=== PATIENT | female | born 1950 | race Two or more races ===

== ENCOUNTER 2021-08-29 09:13 | Outpatient (REF) | payer MEDICARE, SELFPAY ==
--- NOTE | 2021-08-29 09:15 | EMG_ITS ---
This is a 71-year-old woman with bilateral lower extremity numbness in her feet. PHYSICAL EXAMINATION: On examination, she is alert and oriented with normal intellectual functions. Cranial nerves 2 through 12 are normal. Muscle tone and strength are normal in all 4 extremities. Deep tendon reflexes symmetrical. IMPRESSION: Rule out peripheral neuropathy, rule out lumbar radiculopathy. Nerve conduction EMG study: Mild axonal loss in the sensory nerves and the right peroneal motor nerve. It may be indicated as early axonal neuropathy. Normal EMG of the right L4-S1 innervated muscles. MD DEBBI Boyd/ANGELICA / [id number]
== END 2021-08-29 09:14 | disposition home or self-care (01) ==
LOC: HO.NEURO 09:13
PROVIDERS: PCP Emergency Medicine; Visit Provider Emergency Medicine
DX: R20.2 Paresthesia of skin (principal); M79.605 Pain in left leg; M79.604 Pain in right leg
CPT/HCPCS: 95885; 95912

== ENCOUNTER 2021-11-02 10:39 | Outpatient (REF) | payer MEDICARE, SELFPAY ==
--- NOTE | ~2021-11-02 | MM_ITS ---
EXAMINATION: MM SCREENING DIGITAL BREAST TOMOSYNTHESIS, BILATERAL CLINICAL INFORMATION: Screening. Asymptomatic. The lifetime risk of breast cancer based on the Tyrer-Cuzick Model is 3%. COMPARISON: Mammography: 04/25/2020, 02/13/2019, 02/02/2018 TECHNIQUE: Digital breast tomosynthesis is performed in both the craniocaudal and mediolateral oblique views along with computer-aided detection (CAD). Synthesized 2D images are generated from the tomosynthesis. FINDINGS: There are scattered areas of fibroglandular density (ACR BI-RADS breast composition Category b). There are no significant masses, abnormal calcifications, or other abnormalities. There is biopsy clip marker posterior central right breast. Background stromal and fibroglandular densities are stable. The axilla and skin contours are unremarkable. MM/MM tomosynthesis screening BI IMPRESSION: No mammographic evidence of malignancy. ASSESSMENT: BI-RADS 1: Negative RECOMMENDATION: Routine annual mammography screening. This patient's information was entered into a reminder system with a target due date for their next mammogram.
== END 2021-11-02 10:40 | disposition home or self-care (01) ==
LOC: HO.MAMMO 10:39
PROVIDERS: PCP Nurse Practitioner; Visit Provider Nurse Practitioner
DX: Z12.31 Encounter for screening mammogram for malignant neoplasm of breast (principal)
CPT/HCPCS: 77063; 77067

== ENCOUNTER 2022-04-11 10:09 | Outpatient (REF) | payer MEDICARE, SELFPAY ==
--- NOTE | ~2022-04-11 | MM_ITS ---
EXAMINATION: BONE DENSITOMETRY CLINICAL INDICATION: Osteopenia. COMPARISON: Previous BD dated 02/19/2019 and baseline BD dated 11/04/2005. TECHNIQUE: Using a [employer] DXA System (software version: 13.1) manufactured by [employer], dual-energy x-ray absorptiometry was performed of the lumbar spine and left hip. The images are of good technical quality. Summary results are attached. FINDINGS: AP SPINE L1-L4: Current: BMD 1.052 g/cm2, Z-score 0.5, T-score -1.1, osteopenia, 2.7% decrease from previous, 0.4% decrease from baseline (<5% change is not significant). Prior: BMD 1.081 g/cm2. Baseline: BMD 1.056 g/cm2. LEFT FEMUR, NECK: Current: BMD 0.864 g/cm2, Z-score 0.5, T-score -1.2, osteopenia. Prior: BMD 0.875 g/cm2. Baseline: BMD 0.930 g/cm2. LEFT FEMUR, TOTAL: Current: BMD 0.908 g/cm2, Z-score 0.7, T-score -0.8, normal, 2.3% decrease from previous, 16.6% decrease from baseline (<5% change is not significant). Prior: BMD 0.929 g/cm2. Baseline: BMD 1.089 g/cm2. IDENTIFIED RISK FACTORS: Height loss, history of fracture (adult), family history (parental hip fracture), osteoporosis, menopause, hysterectomy. HISTORY OF FRACTURE: Humerus. MEDICATIONS: Calcium supplements or multivitamin, vitamin D. MM/XR DEXA axial skeleton IMPRESSION: 1. DIAGNOSIS: Osteopenia based on the lowest T-score value of -1.2 in the femoral neck applying World Health Organization criteria. 2. 10-YEAR FRACTURE RISK PREDICTION, FRAX: Major osteoporotic fracture (clinical spine, forearm, hip or shoulder) 12.7%. Hip fracture 3.7%. 3. Treatment Recommendations: NOF guidelines recommend consideration for treatment in postmenopausal women and men age 50 and older presenting with the following: -A hip or vertebral (clinical or morphometric) fracture. -T-score less than or equal to -2.5 at the femoral neck or spine after appropriate evaluation to exclude secondary causes. -Low bone mass at the hip or spine and a 10-year fracture probability by FRAX of greater than or equal to 3% for hip fracture or greater than or equal to 20% for major osteoporotic fracture based on the [place] adapted WHO algorithm. 4. Other Recommendations: All treatment decisions require clinical judgment and consideration of individual patient factors, including patient preferences, comorbidities, previous drug use, risk factors not captured in the FRAX model (e.g. frailty, falls, vitamin D deficiency, increased bone turnover, interval significant decline in bone density) and possible under or overestimation of fracture risk by FRAX. Additional medical evaluation for secondary cause of low bone mineral density may be appropriate. FUTURE SCAN RECOMMENDATION: People with diagnosed cases of osteoporosis or at high risk for fracture should have regular bone mineral density tests. For patients eligible for Medicare, routine testing is allowed once every 2 years. The testing frequency can be increased to one year for patients who have rapidly progressing disease, those who are receiving or discontinuing medical therapy to restore bone mass, or have additional risk factors.
== END 2022-04-11 10:10 | disposition home or self-care (01) ==
LOC: HO.MAMMO 10:09
PROVIDERS: Visit Provider Nurse Practitioner
DX: M85.80 Other specified disorders of bone density and structure, unspecified site (principal); Z78.0 Asymptomatic menopausal state; Z90.710 Acquired absence of both cervix and uterus
CPT/HCPCS: 77080

== ENCOUNTER 2022-11-06 09:53 | Outpatient (REF) | payer MEDICARE, SELFPAY ==
--- NOTE | ~2022-11-06 | MM_ITS ---
EXAMINATION: MM SCREENING DIGITAL BREAST TOMOSYNTHESIS, BILATERAL CLINICAL INFORMATION: Screening. Asymptomatic. Family history breast cancer, sister. COMPARISON: Mammography: 11/02/2021, 04/25/2020, 02/13/2019, 02/02/2018 TECHNIQUE: Digital breast tomosynthesis is performed in both the craniocaudal and mediolateral oblique views along with computer-aided detection (CAD). Synthesized 2D images are generated from the tomosynthesis. FINDINGS: There are scattered areas of fibroglandular density (ACR BI-RADS breast composition Category b). Breast tissue composition borders on predominantly fatty. No interval architectural abnormality or developing density or abnormal calcifications. Background stromal and fibroglandular densities are stable. There are incidental intramammary nodes again seen posterior upper outer bilateral breasts. Biopsy clip marker again noted posterior central right breast. The axilla and skin contours are unremarkable. MM/MM tomosynthesis screening BI IMPRESSION: No mammographic evidence of malignancy. ASSESSMENT: BI-RADS 2: Benign RECOMMENDATION: Routine annual mammography screening. This patient's information was entered into a reminder system with a target due date for their next mammogram.
== END 2022-11-06 09:54 | disposition home or self-care (01) ==
LOC: HO.MAMMO 09:53
PROVIDERS: Visit Provider Nurse Practitioner
DX: Z12.31 Encounter for screening mammogram for malignant neoplasm of breast (principal)
CPT/HCPCS: 77063; 77067

== ENCOUNTER 2023-09-10 08:52 | Outpatient (REF) | payer MEDICARE, SELFPAY ==
[2023-09-10 11:27] LABS: Appearance Urine Turbid; Color Urine Yellow; Glucose Urine UA Negative (Negative); Leukocyte Esterase Urine Large (3+) (Negative); Nitrite Urine Negative (Negative); PH 6.5 (5.0-9.0); Specific Gravity - Urine 1.015 (1.005-1.025); UMIC TRIGGER UACC YES; Urine Blood Small (1+) (Negative); Urine Ketones Negative (Negative); Urine Protein Trace mg/dL (Neg-Trace)
[2023-09-10 12:00] LABS: Alanine Aminotransferase 10 U/L (0-31); Albumin Level 3.8 g/dL (3.5-5.0); Alkaline Phosphatase 85 U/L (39-117); Anion Gap 11 (12-20); Aspartate Amino Transferase 19 U/L (5-31); Bilirubin Total 0.3 mg/dL (0.0-1.0); Blood Urea Nitrogen 29 mg/dL (9-16); Calcium 9.8 mg/dL (8.4-10.2); Carbon Dioxide 27 mmol/L (22-29); Chloride 108 mmol/L (96-108); Cholesterol 114 mg/dL (<200); Estimated Glomerular Filt Rate 54; Glucose Random 91 mg/dL (60-115); HDL Cholesterol 53 mg/dL (>40); LDL Cholesterol Calculated 48 mg/dL (<100); Potassium 4.1 mmol/L (3.3-5.1); Sodium 142 mmol/L (135-145); Total Protein 7.5 g/dL (6.5-8.0); Triglycerides 69 mg/dL (<150)
[2023-09-10 12:13] LABS: Estimated Average Glucose 103 mg/dL; Hemoglobin A1c % 5.2 % (<6.0)
[2023-09-10 12:16] LABS: Bacteria Urine 4+ (None Seen); RBC Urine 0-2 /HPF (0-2); Squamous Epithelial Cell Urine >20 /HPF (0-2); UACC Culture Trigger YES; WBC Urine >50 /HPF (0-5)
== END 2023-09-10 08:53 | disposition home or self-care (01) ==
LOC: HO.HHCL 08:52
PROVIDERS: Visit Provider Registered Nurse
DX: I10 Essential (primary) hypertension (principal); E66.09 Other obesity due to excess calories; Z68.34 Body mass index [BMI] 34.0-34.9, adult; R31.29 Other microscopic hematuria; E78.00 Pure hypercholesterolemia, unspecified; M48.10 Ankylosing hyperostosis [Forestier], site unspecified
CPT/HCPCS: 36415; 80053; 80061; 81001; 83036; 87086

== ENCOUNTER 2023-10-22 10:38 | Outpatient (AMB) | payer MEDICARE, SELFPAY ==
--- NOTE | 2023-10-22 10:48 | A.OFFVIS_ITS ---
Intake Intake Visit Reasons: microscopic hematuria Intake Note: New Patient presents for initial visit for microscopic hematuria Urology Medications: none Blood Thinner: none Tool Procurement Coordinator Required: Yes Tool Procurement Coordinator Name: [id number] Accompanied by: Self / Same As Patient Allergies BIPHOSPHONATES Allergy (Unknown, Uncoded 10/22/23 11:35) Unknown Medication List - Last Reconciled 10/22/23 by KOFFI Hinkle albuterol sulfate 90 mcg/actuation inhalation amlodipine 5 mg PO DAILY calcium carbonate-vitamin D3 600 mg-10 mcg (400 unit) 1 tab PO BID docusate sodium 100 mg PO QAM ergocalciferol (vitamin D2) PO ferrous sulfate (FeroSul) 325 mg PO DAILY fluticasone propion-salmeterol 250-50 mcg/dose 1 ea inhalation BID lisinopril-hydrochlorothiazide 20-25 mg 1 tab PO DAILY loratadine 10 mg PO DAILY rosuvastatin 20 mg PO BEDTIME HPI HPI Comments History of Present Illness Details Kalli is a very pleasant Estonian speaking patient of Dr. Sarkar. She has a PMH of obesity, allergic rhinitis, hypertension, hypercholesteremia, moderate persistent asthma, and osteopenia. She presents to the office today as a new patient for microscopic hematuria. In discussion with the patient today she reports having followed-up with her PCP at which time a urinalysis noted microscopic hematuria thus referral to Urology was made for further assessment evaluation. In discussion with the patient today she denies any previous known chemical exposure or smoking history. She does report longstanding history of nocturia however does not find this bothersome. In office urinalysis today with 3+ leukocytes and trace microscopic hematuria otherwise within normal limits. Discussed at length potential causes for microscopic hematuria as well as further microscopic hematuria workup with imaging, cytology, and in office cystoscopy. She otherwise denies any bothersome urinary issues or concerns. She does report urinary urgency and frequency however does not find this bothersome. She denies hematuria, dysuria, foul smelling urine, changes to urinary stream, flank pain, fever, and or chills. She is happy with her current voiding parameters. She otherwise offers no issues or concerns at this time. 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 Allergic rhinitis Diverticular disease of colon Essential hypertension Hypercholesteremia Moderate persistent asthma Osteopenia Surgical History (Updated 10/22/23 @ 11:37 by Kenneth Love) History of hysterectomy Review of Systems Eyes Reports no additional complaints ENT Reports no additional complaints Card Reports as per HPI Resp Reports as per HPI GI Reports no additional complaints Reports as per HPI Musc Reports as per HPI Neuro Reports no additional complaints Psych Reports no additional complaints Endo Reports no additional complaints Иван/Lymph Reports no additional complaints Aller/Immun Reports no additional complaints Physical Exam Const General: cooperative, comfortable, no acute distress, well developed, alert and awake Nutritional Appearance: overweight Orientation/consciousness: patient oriented x3 Limitations: no limitations HEENT Head: Yes normal to inspection, Yes normocephalic and Yes atraumatic Ears: hearing grossly normal bilaterally Eyes General: appearance normal, both eyes and all related structures Neck Neck: Yes normal visual inspection and Yes trachea midline Chest Chest palpation & inspection: normal inspection of the chest Resp Effort & Inspection: normal respiratory effort and able to speak in complete sentences Cardio Rate: regular rate GI Inspection: Yes normal to inspection General: Yes no CVA tenderness Back/Spine/Pelvis Back: no CVA tenderness Skin General skin exam: no rashes or lesions noted Neuro General: patient oriented x3 Extrem General: Yes normal to inspection Psych Appearance: grossly normal and well kempt Mental Status: mental status grossly normal Speech and movement: Normal speech and movement present and Clear speech present Affect: normal affect Attitude: cooperative Thought process: Normal thought process present Thought content: Normal thought content present Insight: Fair insight present (Psych) Judgement: Fair judgement present (Psych) Results AMB Urinalysis, Automated UA Leukoctes 500 Deepti/uL Last Edit by MurtazaHere@ [employer] Love on 10/22/23 11:20 UA Nitrite Negative Last Edit by [place] Love on 10/22/23 11:20 UA Urobilinogen 0.2 mg/dL Last Edit by [place] Love on 10/22/23 11:20 UA Protein 0 mg/dL Last Edit by [place] Love on 10/22/23 11:20 UA pH 6.5 Last Edit by MurtazaHere@ [employer] on 10/22/23 11:20 UA Blood 10 Juan Diego/uL Last Edit by Kenneth Love on 10/22/23 11:20 UA Specific Gilbert 1.010 Last Edit by Kenneth Love on 10/22/23 11:20 UA Ketone Negative Last Edit by Kenneth Love on 10/22/23 11:20 UA Bilirubin 0 mg/dL Last Edit by Kenneth Love on 10/22/23 11:20 UA Glucose 0 mg/dL Last Edit by Kenneth Love on 10/22/23 11:20 Results Reviewed Results Reviewed: Laboratory Last Values Urine pH (Auto) 6.5 10/22/23 10:50 Specific Gilbert (Auto) 1.010 10/22/23 10:50 Urine Protein (Auto) 0 mg/dL 10/22/23 10:50 Glucose (UA)(Auto) 0 mg/dL 10/22/23 10:50 Urine Ketones (Auto) Negative 10/22/23 10:50 Urine Blood (Auto) 10 Juan Diego/uL 10/22/23 10:50 Urine Nitrite (Auto) Negative 10/22/23 10:50 Urine Bilirubin (Auto) 0 mg/dL 10/22/23 10:50 Urine Urobilinogen (Auto) 0.2 mg/dL 10/22/23 10:50 Leukocyte Esterase (Auto) 500 Deepti/uL 10/22/23 10:50 Assessment & Plan Assessment & Plan (1) Microscopic hematuria: Code(s): R31.29 - Other microscopic hematuria (2) Nocturia: Code(s): R35.1 - Nocturia (3) Urinary tract infection: Code(s): N39.0 - Urinary tract infection, site not specified (4) Urinary frequency: Code(s): R35.0 - Frequency of micturition Plan In office urinalysis results reviewed with the patient today; as noted above; will send for urine culture. Discussed at length potential causes for microscopic hematuria. Discussed further microscopic hematuria workup with cytology, imaging, and in office cystoscopy; this was discussed at length; discussed risks and benefits of further microscopic hematuria versus surveillance monitoring Discussed, educated, and stressed the importance of drinking plenty of water daily. Start Macrobid as discussed and prescribed. Will obtain retroperitoneal ultrasound for further assessment evaluation. Follow-up in 1-2 months with imaging to be completed prior and PVR at next office visit; or sooner with any issues, concerns, and or questions Orders: Orders AMB Urinalysis Automated Today Z13.9 - Encounter for screening, unspecified US retroperitoneal comp Today R31.29 - Other microscopic hematuria, R35.1 - Nocturia Medications: New nitrofurantoin monohyd/m-cryst 100 mg (Macrobid) must administer with a meal/food 100 mg PO Q12H 10 days 20 caps 0RF Patient Instructions: The patient had an opportunity to ask questions regarding the treatment plan. All questions were answered. Physical exam, labs, and imaging were discussed and reviewed in detail. As well as risks, benefits, and discussion of treatment choices. No major barriers to understanding were identified. The patient expressed understanding and agreement with the above treatment plan. The patient was made aware they should contact our office by phone for worsening of their current condition, the appearance of new symptoms, or with any questions or concerns. Compliance is encouraged with any medications and follow up testing that is ordered. It is a privilege to be allowed the opportunity to participate in? your urological care.? Again, if you have any questions or concerns If you have any questions or concerns please do not hesitate to contact me. The office is [phone]. This note is constructed using voice recognition software. While every effort has been made to ensure accuracy sheet metal engineer errors may have been included. Yours sincerely, KOFFI Hinkle Coding Level of Care Code New Pt Level 4 (68254) Diagnoses Microscopic hematuria R31.29 Nocturia R35.1 Urinary tract infection N39.0 Urinary frequency R35.0
== END 2023-10-22 11:52 | disposition home or self-care (01) ==
LOC: HO.HUSH 10:38
PROVIDERS: PCP Registered Nurse; Visit Provider Nurse Practitioner Family
DX: R31.29 Other microscopic hematuria (principal); R35.1 Nocturia; N39.0 Urinary tract infection, site not specified; R35.0 Frequency of micturition; Z13.9 Encounter for screening, unspecified
CPT/HCPCS: 99204

== ENCOUNTER 2023-10-22 10:38 | Outpatient (REF) | payer MEDICARE, SELFPAY | END 2023-10-22 10:39 | disposition home or self-care (01) | LOC: HO.LNP 10:38 | PROVIDERS: PCP Registered Nurse; Visit Provider Nurse Practitioner Family | DX: R31.29 Other microscopic hematuria (principal); N39.0 Urinary tract infection, site not specified; R35.1 Nocturia; R35.0 Frequency of micturition | CPT/HCPCS: 81003; 87086; 99202 ==

== ENCOUNTER 2023-12-05 11:56 | Outpatient (REF) | payer MEDICARE, SELFPAY ==
--- NOTE | ~2023-12-05 | MM_ITS ---
EXAMINATION: MM SCREENING DIGITAL BREAST TOMOSYNTHESIS, BILATERAL CLINICAL INFORMATION: Screening. Asymptomatic. COMPARISON: Mammography: This study is compared with prior exams dating back to 2018. TECHNIQUE: Digital breast tomosynthesis is performed in both the craniocaudal and mediolateral oblique views along with computer-aided detection (CAD). Synthesized 2D images are generated from the tomosynthesis. FINDINGS: The breasts are almost entirely fatty (ACR BI-RADS breast composition Category a). There are no significant masses, abnormal calcifications, or other abnormalities. There is a tissue marker in the superior aspect of the right breast from prior benign percutaneous biopsy. MM/MM tomosynthesis screening BI IMPRESSION: No mammographic evidence of malignancy. ASSESSMENT: BI-RADS BI-RADS 2 - Benign Findings RECOMMENDATION: Routine annual mammography screening. 1 year F/U This examination should not preclude the clinical evaluation of a suspicious palpable abnormality. This patient's information was entered into a reminder system with a target due date for their next mammogram.
== END 2023-12-05 11:57 | disposition home or self-care (01) ==
LOC: HO.MAMMO 11:56
PROVIDERS: PCP Registered Nurse; Visit Provider Registered Nurse
DX: Z12.31 Encounter for screening mammogram for malignant neoplasm of breast (principal)
CPT/HCPCS: 77063; 77067

== ENCOUNTER → 2023-12-05 12:15 | Outpatient (BNV) | payer MEDICARE, SELFPAY | PROVIDERS: PCP Registered Nurse; Visit Provider Radiology Diagnostic Radiology | DX: Z12.31 Encounter for screening mammogram for malignant neoplasm of breast (principal) | CPT/HCPCS: 77063; 77067 ==

== ENCOUNTER 2023-12-16 09:44 | Outpatient (REF) | payer MEDICARE, MEDICAID, SELFPAY ==
--- NOTE | ~2023-12-16 | US_ITS ---
EXAMINATION: US RETROPERITONEAL COMPLETE (RENAL) CLINICAL INFORMATION: Nocturia. COMPARISON: Ultrasound kidneys and bladder 08/07/2019. TECHNIQUE: Real-time imaging of the kidneys and bladder. Limited visualization due to bowel gas. FINDINGS: RIGHT KIDNEY: 9.1 x 5 x 5.1 cm (SAG x AP x TRV). Borderline increased renal echogenicity and increased renal cortical thinning. Mild calyectasis. No renal calculi appreciated. 1.8 cm lower pole cyst. 1.7 cm upper pole cyst. There is no indication for follow-up imaging. LEFT KIDNEY: 9.1 x 4.8 x 4.6 cm (SAG x AP x TRV). Borderline increased renal echogenicity in renal cortical thinning. Mild caliectasis. No renal calculi appreciated. Limited visualization. 1.1 cm lower pole cyst with peripheral echogenicity possibly representing artifact versus mural calcification. 1.0 cm upper pole cyst with benign features. There is no indication for follow-up imaging. BLADDER: Partially distended. Bilateral ureteral jets are demonstrated. Prevoid bladder volume is 234 mL. Postvoid bladder volume is 95.8 mL. US/US retroperitoneal comp IMPRESSION: 1. Borderline increased renal echogenicity and increased renal cortical thinning. Mild caliectasis. No renal calculi appreciated. Limited visualization. 2. Postvoid bladder volume is 95.8 mL.
== END 2023-12-16 09:45 | disposition home or self-care (01) ==
LOC: HO.US 09:44
PROVIDERS: PCP Registered Nurse; Visit Provider Nurse Practitioner Family
DX: R35.1 Nocturia (principal); R31.29 Other microscopic hematuria
CPT/HCPCS: 76770

== ENCOUNTER 2023-12-23 10:30 | Outpatient (AMB) | payer MEDICARE, SELFPAY ==
--- NOTE | 2023-12-23 10:33 | MHC.OFFVIS ---
Intake Intake Visit Reasons: 6wk follow up/US(set) Intake Note: Patient presents today for a follow-up Meds- None Allergies to Antibiotic- No Known Allergies Blood Thinner- None Post Void Residual: 143ml Patient Symptoms: Patient was unable to provide urine sample today Wellness Spa Manager Required: Yes Wellness Spa Manager Name: VINNY BOB-CMI Accompanied by: Self / Same As Patient Allergies BIPHOSPHONATES Allergy (Unknown, Uncoded 12/23/23 22:03) Unknown Medication List - Last Reconciled 12/23/23 by GAYATHRI Hinkle- albuterol sulfate 90 mcg/actuation inhalation amlodipine 5 mg PO DAILY calcium carbonate-vitamin D3 600 mg-10 mcg (400 unit) 1 tab PO BID docusate sodium 100 mg PO QAM ergocalciferol (vitamin D2) PO ferrous sulfate (FeroSul) 325 mg PO DAILY fluticasone propion-salmeterol 250-50 mcg/dose 1 ea inhalation BID lisinopril-hydrochlorothiazide 20-25 mg 1 tab PO DAILY loratadine 10 mg PO DAILY rosuvastatin 20 mg PO BEDTIME terazosin 1 mg PO BEDTIME 30 days HPI HPI Comments History of Present Illness Details Kalli is a very pleasant Congolese speaking patient of Dr. Sarkar. She has a PMH of obesity, allergic rhinitis, hypertension, hypercholesteremia, moderate persistent asthma, and osteopenia. She presents to the office today for follow-up. Of note, patient was seen as a new patient for microscopic hematuria approximately 2 months ago at which time a retroperitoneal ultrasound was ordered for further assessment evaluation. These results were reviewed with the patient today. Bilateral kidneys with no calculi. Right kidney with 1.8 cm lower pole cysts. 1.7 cm upper pole cyst there is no indication for follow-up imaging. Left kidney with 1.1 cm lower pole cyst and 1.0 cm upper pole cyst with benign features. There is no indication for follow-up imaging per radiology report. The bladder is partially distended. Bilateral ureteral jets are demonstrated. Pre void bladder volume is approximately 235mls postvoid bladder volume is approximately 100 mL. Unable to obtain urine for urinalysis today however PVR 143 mls. Discussed at length causes and affects of incomplete bladder emptying. She does report urinary urgency and frequency however does not find this bothersome. She denies dysuria, foul smelling urine, changes to urinary stream, flank pain, fever, and or chills. She is happy with her current voiding parameters. She otherwise offers no issues or concerns at this time. 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 Allergic rhinitis Diverticular disease of colon Essential hypertension Hypercholesteremia Moderate persistent asthma Osteopenia Surgical History History of hysterectomy Review of Systems Eyes Reports no additional complaints ENT Reports no additional complaints Card Reports as per HPI Resp Reports as per HPI GI Reports no additional complaints Reports as per HPI Musc Reports as per HPI Neuro Reports no additional complaints Psych Reports no additional complaints Endo Reports no additional complaints Иван/Lymph Reports no additional complaints Aller/Immun Reports no additional complaints Physical Exam Const General: cooperative, comfortable, no acute distress, well developed, alert and awake Nutritional Appearance: overweight Orientation/consciousness: patient oriented x3 Limitations: no limitations HEENT Head: Yes normal to inspection, Yes normocephalic and Yes atraumatic Ears: hearing grossly normal bilaterally Eyes General: appearance normal, both eyes and all related structures Neck Neck: Yes normal visual inspection and Yes trachea midline Chest Chest palpation & inspection: normal inspection of the chest Resp Effort & Inspection: normal respiratory effort and able to speak in complete sentences Cardio Rate: regular rate GI Inspection: Yes normal to inspection General: Yes no CVA tenderness Back/Spine/Pelvis Back: no CVA tenderness Skin General skin exam: no rashes or lesions noted Neuro General: patient oriented x3 Extrem General: Yes normal to inspection Psych Appearance: grossly normal and well kempt Mental Status: mental status grossly normal Speech and movement: Normal speech and movement present and Clear speech present Affect: normal affect Attitude: cooperative Thought process: Normal thought process present Thought content: Normal thought content present Insight: Fair insight present (Psych) Judgement: Fair judgement present (Psych) Office Procedures Post Void Residual Post Residual Void Post Void Residual (PVR): 143 [id number] Void Residual by ultrasound Results Reviewed Results Reviewed: Date of Service: 12/16/23 EXAMINATION: US RETROPERITONEAL COMPLETE (RENAL) FINDINGS: RIGHT KIDNEY: 9.1 x 5 x 5.1 cm (SAG x AP x TRV). Borderline increased renal echogenicity and increased renal cortical thinning. Mild calyectasis. No renal calculi appreciated. 1.8 cm lower pole cyst. 1.7 cm upper pole cyst. There is no indication for follow-up imaging. LEFT KIDNEY: 9.1 x 4.8 x 4.6 cm (SAG x AP x TRV). Borderline increased renal echogenicity in renal cortical thinning. Mild caliectasis. No renal calculi appreciated. Limited visualization. 1.1 cm lower pole cyst with peripheral echogenicity possibly representing artifact versus mural calcification. 1.0 cm upper pole cyst with benign features. There is no indication for follow-up imaging. BLADDER: Partially distended. Bilateral ureteral jets are demonstrated. Prevoid bladder volume is 234 mL. Postvoid bladder volume is 95.8 mL. IMPRESSION: 1. Borderline increased renal echogenicity and increased renal cortical thinning. Mild caliectasis. No renal calculi appreciated. Limited visualization. 2. Postvoid bladder volume is 95.8 mL. Assessment & Plan Assessment & Plan (1) Microscopic hematuria: Code(s): R31.29 - Other microscopic hematuria (2) Incomplete bladder emptying: Code(s): R33.9 - Retention of urine, unspecified (3) Renal cyst: Code(s): N28.1 - Cyst of kidney, acquired (4) Urinary frequency: Code(s): R35.0 - Frequency of micturition Plan Unable to obtain urine for urinalysis PVR 143ml's. Recent retroperitoneal ultrasound results reviewed with the patient today. Discussed potential causes for renal cyst Discussed at length causes and affects of incomplete bladder emptying. Start terazosin 1 mg at bedtime as discussed and prescribed. Discussed attempting to double void to assist with incomplete bladder emptying. Discussed lifestyle modifications to assist with nocturia with limiting fluids 2-3 hours prior to bed. Follow-up in 6 weeks with PVR; or sooner with any issues, concerns, and or questions. Orders: Orders AMB Post Void Residual by ultrasound Today R33.9 - Retention of urine, unspecified Medications: New terazosin 1 mg PO BEDTIME 30 caps 1RF 30 days R39.12 - Poor urinary stream Patient Instructions: The patient had an opportunity to ask questions regarding the treatment plan. All questions were answered. Physical exam, labs, and imaging were discussed and reviewed in detail. As well as risks, benefits, and discussion of treatment choices. No major barriers to understanding were identified. The patient expressed understanding and agreement with the above treatment plan. The patient was made aware they should contact our office by phone for worsening of their current condition, the appearance of new symptoms, or with any questions or concerns. Compliance is encouraged with any medications and follow up testing that is ordered. It is a privilege to be allowed the opportunity to participate in? your urological care.? Again, if you have any questions or concerns If you have any questions or concerns please do not hesitate to contact me. The office is [phone]. This note is constructed using voice recognition software. While every effort has been made to ensure accuracy personnel clerk errors may have been included. Yours sincerely, KOFFI Hinkle Coding Level of Care Code Est Pt Level 4 (25469) Diagnoses Microscopic hematuria R31.29 Incomplete bladder emptying R33.9 Renal cyst N28.1 Urinary frequency R35.0 CPT Codes Post Residual Void - PVR CPT Code: 18067-Cakj Void Residual by ultrasound ([id number])
== END 2023-12-23 11:01 | disposition home or self-care (01) ==
PROVIDERS: PCP Registered Nurse; Visit Provider Nurse Practitioner Family
DX: R31.29 Other microscopic hematuria (principal); R33.9 Retention of urine, unspecified; N28.1 Cyst of kidney, acquired; R35.0 Frequency of micturition
CPT/HCPCS: 99214

== ENCOUNTER → 2023-12-23 10:30 | Outpatient (BNVA) | payer MEDICARE, SELFPAY | PROVIDERS: PCP Registered Nurse; Visit Provider Nurse Practitioner Family | DX: R31.29 Other microscopic hematuria (principal); R33.9 Retention of urine, unspecified; N28.1 Cyst of kidney, acquired; R35.0 Frequency of micturition | CPT/HCPCS: 51798; 99212 ==

== ENCOUNTER 2024-02-03 09:46 | Outpatient (REF) | payer MEDICARE, SELFPAY ==
[2024-02-03 17:21] LABS: Urine Cytology See Pathology rpt
== END 2024-02-03 09:47 | disposition home or self-care (01) ==
LOC: HO.LAB 09:46
PROVIDERS: PCP Registered Nurse; Visit Provider Nurse Practitioner Family
DX: R31.29 Other microscopic hematuria (principal); N39.0 Urinary tract infection, site not specified; R33.9 Retention of urine, unspecified; I10 Essential (primary) hypertension; N28.1 Cyst of kidney, acquired; Z79.899 Other long term (current) drug therapy
CPT/HCPCS: 51798; 81003; 87086; 88112; 99212

== ENCOUNTER 2024-02-03 09:46 | Outpatient (AMB) | payer MEDICARE, SELFPAY ==
--- NOTE | 2024-02-03 09:47 | A.OFFVIS_ITS ---
Intake Intake Visit Reasons: 6w/PVR Intake Note: Patient presents today for a follow up on: Incomplete bladder emptying and PVR Meds- Terazosin Allergies to Antibiotic- No Known Allergies Blood Thinner- None Post Void Residual: 0ml Crossband Layer Required: Yes Crossband Layer Name: HANS BLAIR-CMI Accompanied by: Self / Same As Patient Allergies BIPHOSPHONATES Allergy (Unknown, Uncoded 02/03/24 10:15) Unknown Medication List - Last Reconciled 02/03/24 by GAYATHRI Hiknle- albuterol sulfate 90 mcg/actuation inhalation amlodipine 5 mg PO DAILY calcium carbonate-vitamin D3 600 mg-10 mcg (400 unit) 1 tab PO BID docusate sodium 100 mg PO QAM ergocalciferol (vitamin D2) PO ferrous sulfate (FeroSul) 325 mg PO DAILY fluticasone propion-salmeterol 250-50 mcg/dose 1 ea inhalation BID lisinopril-hydrochlorothiazide 20-25 mg 1 tab PO DAILY loratadine 10 mg PO DAILY rosuvastatin 20 mg PO BEDTIME terazosin 1 mg PO BEDTIME 30 days HPI HPI Comments History of Present Illness Details Kalli is a very pleasant Samoan speaking patient of Dr. Sarkar. She has a PMH of obesity, allergic rhinitis, hypertension, hypercholesteremia, moderate persistent asthma, and osteopenia. She presents to the office today for follow-up of her microscopic hematuria, renal cyst and incomplete bladder emptying. In discussion with the patient today she reports to be doing and feeling well. She reports compliance with terazosin 1 mg at bedtime. She reports noting increased episodes of nocturia over the last 1-2 weeks. In off ice urinalysis results reviewed with the patient today. 3+ leukocytes negative nitrates and microscopic hematuria. PVR 0 mL which is significantly improved since last office visit with a PVR of 140 mL as well as PVR of 100ml while performing retroperitoneal ultrasound. Previous workup has included a retroperitoneal ultrasound noting bilateral kidneys with no calculi. Right kidney with 1.8 cm lower pole cysts. 1.7 cm upper pole cyst there is no indication for follow-up imaging. Left kidney with 1.1 cm lower pole cyst and 1.0 cm upper pole cyst with benign features. There is no indication for follow- up imaging per radiology report. The bladder is partially distended. Bilateral ureteral jets are demonstrated. Pre void bladder volume is approximately 235mls postvoid bladder volume is approximately 100 mL. She denies dysuria, foul smelling urine, changes to urinary stream, flank pain, fever, and or chills. She otherwise offers no issues or concerns at this time. 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 Allergic rhinitis Diverticular disease of colon Essential hypertension Hypercholesteremia Moderate persistent asthma Osteopenia Surgical History History of hysterectomy Review of Systems Eyes Reports no additional complaints ENT Reports no additional complaints Card Reports as per HPI Resp Reports as per HPI GI Reports no additional complaints Reports as per HPI Musc Reports as per HPI Neuro Reports no additional complaints Psych Reports no additional complaints Endo Reports no additional complaints Иван/Lymph Reports no additional complaints Aller/Immun Reports no additional complaints Physical Exam Const General: cooperative, comfortable, no acute distress, well developed, alert and awake Nutritional Appearance: overweight Orientation/consciousness: patient oriented x3 Limitations: no limitations HEENT Head: Yes normal to inspection, Yes normocephalic and Yes atraumatic Ears: hearing grossly normal bilaterally Eyes General: appearance normal, both eyes and all related structures Neck Neck: Yes normal visual inspection and Yes trachea midline Chest Chest palpation & inspection: normal inspection of the chest Resp Effort & Inspection: normal respiratory effort and able to speak in complete sentences Cardio Rate: regular rate GI Inspection: Yes normal to inspection General: Yes no CVA tenderness Back/Spine/Pelvis Back: no CVA tenderness Skin General skin exam: no rashes or lesions noted Neuro General: patient oriented x3 Extrem General: Yes normal to inspection Psych Appearance: grossly normal and well kempt Mental Status: mental status grossly normal Speech and movement: Normal speech and movement present and Clear speech present Affect: normal affect Attitude: cooperative Thought process: Normal thought process present Thought content: Normal thought content present Insight: Fair insight present (Psych) Judgement: Fair judgement present (Psych) Office Procedures Post Void Residual Post Residual Void Post Void Residual (PVR): 0 [id number] Void Residual by ultrasound Results AMB Urinalysis, Automated UA Leukoctes 500 Deepti/uL Last Edit by Noemi Jean [facility] on 02/03/24 10:05 UA Nitrite Negative [facility], [facility] on 02/03/24 10: 05 UA Urobilinogen 0.2 mg/dL [facility] on 4 10:05 UA Protein 0 mg/dL Last Edit [facility], [facility] on 02/03/24 10:05 UA pH 6.0 Last Edit [facility], [facility] on 02/03/24 10:05 UA Blood 10 Juan Diego/uL Last [facility], [facility] on 02/03/24 10:05 UA Specific [place] 1.010 Last Edit [facility] on 10:05 UA Ketone Negative Last [facility], [facility] on 02/03/24 10:0 5 UA Bilirubin 0 mg/dL [facility] on 02/03/24 10: 05 UA Glucose 0 mg/dL Last [facility], [facility] on 02/03/24 10:05 Results Reviewed Results Reviewed: Laboratory Last Values Urine pH (Auto) 6.0 02/03/24 09:49 Specific [place] (Auto) 1.010 02/03/24 09:49 Urine Protein (Auto) 0 mg/dL 02/03/24 09:49 Glucose (UA)(Auto) 0 mg/dL 02/03/24 09:49 Urine Ketones (Auto) Negative 02/03/24 09:49 Urine Blood (Auto) 10 Juan Diego/uL 02/03/24 09:49 Urine Nitrite (Auto) Negative 02/03/24 09:49 Urine Bilirubin (Auto) 0 mg/dL 02/03/24 09:49 Urine Urobilinogen (Auto) 0.2 mg/dL 02/03/24 09:49 Leukocyte Esterase (Auto) 500 Deepti/uL 02/03/24 09:49 Assessment & Plan Assessment & Plan (1) Renal cyst: Code(s): N28.1 - Cyst of kidney, acquired (2) Incomplete bladder emptying: Code(s): R33.9 - Retention of urine, unspecified (3) Microscopic hematuria: Code(s): R31.29 - Other microscopic hematuria (4) Urinary tract infection: Code(s): N39.0 - Urinary tract infection, site not specified Plan In office urinalysis results reviewed with the patient today; as noted above; will send for urine culture; will await results for potential treatment. Continue terazosin 1 mg at bedtime; refill provided PVR 0 mL. Discussed at length potential causes of urinary tract infections, incomplete bladder emptying, renal cysts, and microscopic hematuria; this was discussed at length. Discussed, educated, and stressed the importance of drinking water daily. Discussed UTI prevention with increasing fluid intake, behavioral therapy with timed voiding, perineal hygiene and postcoital voiding, and management of constipation with stool softeners and increased fiber intake. Follow-up in 1 month with PVR; or sooner with any issues, concerns, and or questions. Orders: Orders AMB Urinalysis Automated Today R33.9 - Retention of urine, unspecified AMB Post Void Residual by ultrasound Today R33.9 - Retention of urine, unspecified Urine Culture Today N39.0 - Urinary tract infection, site not specified Urine Cytology Today R31.29 - Other microscopic hematuria Medications: Changed From terazosin 1 mg PO BEDTIME 30 days 30 caps 1RF R39.12 - Poor urinary stream To terazosin 1 mg PO BEDTIME 90 caps 1RF 90 days R39.12 - Poor urinary stream Patient Instructions: The patient had an opportunity to ask questions regarding the treatment plan. All questions were answered. Physical exam, labs, and imaging were discussed and reviewed in detail. As well as risks, benefits, and discussion of treatment choices. No major barriers to understanding were identified. The patient expressed understanding and agreement with the above treatment plan. The patient was made aware they should contact our office by phone for worsening of their current condition, the appearance of new symptoms, or with any questions or concerns. Compliance is encouraged with any medications and follow up testing that is ordered. It is a privilege to be allowed the opportunity to participate in? your urological care.? Again, if you have any questions or concerns If you have any questions or concerns please do not hesitate to contact me. The office is [phone]. This note is constructed using voice recognition software. While every effort has been made to ensure accuracy surgical services director errors may have been included. Yours sincerely, KOFFI Hinkle Coding Level of Care Code Est Pt Level 3 (75532) Diagnoses Renal cyst N28.1 Incomplete bladder emptying R33.9 Microscopic hematuria R31.29 Urinary tract infection N39.0 CPT Codes Post Residual Void - PVR CPT Code: 80779-Nfgc Void Residual by ultrasound ([id number])
== END 2024-02-03 10:22 | disposition home or self-care (01) ==
PROVIDERS: PCP Registered Nurse; Visit Provider Nurse Practitioner Family
DX: N28.1 Cyst of kidney, acquired (principal); R33.9 Retention of urine, unspecified; R31.29 Other microscopic hematuria; N39.0 Urinary tract infection, site not specified
CPT/HCPCS: 99213

== ENCOUNTER 2024-03-16 11:38 | Outpatient (AMB) | payer MEDICARE, SELFPAY ==
--- NOTE | 2024-03-16 11:45 | A.OFFVIS_ITS ---
Intake Visit Reasons: 6w/PVR Intake Note: Patient presents today for a follow up on: Incomplete bladder emptying and PVR Urology Medications: Terazosin Blood Thinner: None Post Void Residual: 76 ml's Orthopaedic General Required: Yes Orthopaedic General Name: HANS BLAIR-ZOHAIBI Accompanied by: Self / Same As Patient Allergies BIPHOSPHONATES Allergy (Unknown, Uncoded 03/16/24 12:07) Unknown Medication List - Last Reconciled 03/16/24 by GAYATHRI Hinkle- albuterol sulfate 90 mcg/actuation inhalation amlodipine 5 mg PO DAILY calcium carbonate-vitamin D3 600 mg-10 mcg (400 unit) 1 tab PO BID docusate sodium 100 mg PO QAM ergocalciferol (vitamin D2) PO ferrous sulfate (FeroSul) 325 mg PO DAILY fluticasone propion-salmeterol 250-50 mcg/dose 1 ea inhalation BID lisinopril-hydrochlorothiazide 20-25 mg 1 tab PO DAILY loratadine 10 mg PO DAILY naproxen 375 mg PO BID rosuvastatin 20 mg PO BEDTIME terazosin 1 mg PO BEDTIME 90 days HPI Comments Details: Kalli is a very pleasant 74 year old [place]orese speaking patient of Dr. Sarkar. She has a PMH of obesity, allergic rhinitis, hypertension, hypercholesteremia, moderate persistent asthma, and osteopenia. She presents to the office today for follow-up of her microscopic hematuria, renal cyst and incomplete bladder emptying. In discussion with the patient today she reports to be doing and feeling well. She reports compliance with terazosin 1 mg at bedtime. During last office visit urine was sent for urine culture due to 3+ leukocytes and patient reporting increased episodes of nocturia. However, urine culture results noted < 10,000 cfu/ml. In discussion with the patient today she is unsure if she is experiencing UTI like symptoms as she feels her urinary symptoms very day today. She reports noting episodes of urinary frequency a few days ago however feels symptoms have since resolved. Previous workup has included a retroperitoneal ultrasound noting bilateral kidneys with no calculi. Right kidney with 1.8 cm lower pole cysts. 1.7 cm upper pole cyst there is no indication for follow-up imaging. Left kidney with 1.1 cm lower pole cyst and 1.0 cm upper pole cyst with benign features. There is no indication for follow- up imaging per radiology report. The bladder is partially distended. Bilateral ureteral jets are demonstrated. Pre void bladder volume is approximately 235mls postvoid bladder volume is approximately 100 mL. In office urinalysis results reviewed with the patient today. 3+ leukocytes, negative nitrates, and microscopic hematuria again noted. Urine Cytology 02/17 Negative for high-grade urothelial carcinoma. PVR 76 mLs. She denies dysuria, foul smelling urine, changes to urinary stream, flank pain, fever, and or chills. She otherwise offers no issues or concerns at this time. 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 Allergic rhinitis Diverticular disease of colon Essential hypertension Hypercholesteremia Moderate persistent asthma Osteopenia Surgical History History of hysterectomy Review of Systems Eyes Reports no additional complaints ENT Reports no additional complaints Card Reports as per HPI Resp Reports as per HPI GI Reports no additional complaints Reports as per HPI Musc Reports as per HPI Neuro Reports no additional complaints Psych Reports no additional complaints Endo Reports no additional complaints Иван/Lymph Reports no additional complaints Aller/Immun Reports no additional complaints Physical Exam Const General: cooperative, healthy appearing, comfortable, no acute distress, well developed, alert and awake Nutritional Appearance: overweight Orientation/consciousness: patient oriented x3 Limitations: no limitations HEENT Head: Yes normal to inspection, Yes normocephalic and Yes atraumatic Ears: hearing grossly normal bilaterally Eyes General: appearance normal, both eyes and all related structures Neck Neck: Yes normal visual inspection and Yes trachea midline Chest Chest palpation & inspection: normal inspection of the chest Resp Effort & Inspection: normal respiratory effort and able to speak in complete sentences Cardio Rate: regular rate GI Inspection: Yes normal to inspection General: Yes no CVA tenderness Back/Spine/Pelvis Back: no CVA tenderness Skin General skin exam: no rashes or lesions noted Neuro General: patient oriented x3 Extrem General: Yes normal to inspection Psych Appearance: grossly normal and well kempt Mental Status: mental status grossly normal Speech and movement: Normal speech and movement present and Clear speech present Affect: normal affect Attitude: cooperative Thought process: Normal thought process present Thought content: Normal thought content present Insight: Fair insight present (Psych) Judgement: Fair judgement present (Psych) Office Procedures Post Void Residual Post Residual Void Post Void Residual (PVR): 76 [id number] Void Residual by ultrasound Results AMB Urinalysis, Automated UA Leukoctes 500 Deepti/uL Last Edit by Kenneth Love on 03/16/24 11:56 UA Nitrite Negative Last Edit by [employer] on 03/16/24 11:56 UA Urobilinogen 0.2 mg/dL Last Edit by [employer] on 03/16/24 11:56 UA Protein 0 mg/dL Last Edit by [employer] on 03/16/24 11:56 UA pH 6.5 Last Edit by frooly on 03/16/24 11:56 UA Blood 10 Juan Diego/uL Last Edit by [employer] on 03/16/24 11:56 UA Specific Bland 1.005 Last Edit by [employer] on 03/16/24 11:56 UA Ketone Negative Last Edit by [employer] on 03/16/24 11:56 UA Bilirubin 0 mg/dL Last Edit by [employer] on 03/16/24 11:56 UA Glucose 0 mg/dL Last Edit by frooly on 03/16/24 11:56 Results Reviewed Results Reviewed: Laboratory Last Values Urine pH (Auto) 6.5 03/16/24 11:47 Specific Bland (Auto) 1.005 03/16/24 11:47 Urine Protein (Auto) 0 mg/dL 03/16/24 11:47 Glucose (UA)(Auto) 0 mg/dL 03/16/24 11:47 Urine Ketones (Auto) Negative 03/16/24 11:47 Urine Blood (Auto) 10 Juan Diego/uL 03/16/24 11:47 Urine Nitrite (Auto) Negative 03/16/24 11:47 Urine Bilirubin (Auto) 0 mg/dL 03/16/24 11:47 Urine Urobilinogen (Auto) 0.2 mg/dL 03/16/24 11:47 Leukocyte Esterase (Auto) 500 Deepti/uL 03/16/24 11:47 Assessment & Plan Assessment & Plan (1) Incomplete bladder emptying: Code(s): R33.9 - Retention of urine, unspecified Category: Medical (2) Urinary frequency: Code(s): R35.0 - Frequency of micturition Category: Medical (3) Microscopic hematuria: Code(s): R31.29 - Other microscopic hematuria Category: Medical Plan In office urinalysis results reviewed with the patient today; as noted above; will send for microgen; will await results for potential treatment. PVR 76 mLs. Discussed, educated, and stressed the importance of drinking water daily. Continue with terazosin 1 mg at bedtime. Discussed attempting to double void to assist with incomplete bladder emptying. Recent cytology results reviewed with the patient today. Recent urine culture results reviewed with the patient today. Follow-up in 1-3 months with PVR; or sooner with any issues, concerns, and or questions. Orders: Orders AMB Urinalysis Automated Today Z13.9 - Encounter for screening, unspecified AMB Post Void Residual by ultrasound Today R33.9 - Retention of urine, unspecified Patient Instructions: The patient had an opportunity to ask questions regarding the treatment plan. All questions were answered. Physical exam, labs, and imaging were discussed and reviewed in detail. As well as risks, benefits, and discussion of treatment choices. No major barriers to understanding were identified. The patient expressed understanding and agreement with the above treatment plan. The patient was made aware they should contact our office by phone for worsening of their current condition, the appearance of new symptoms, or with any questions or concerns. Compliance is encouraged with any medications and follow up testing that is ordered. It is a privilege to be allowed the opportunity to participate in? your urological care.? Again, if you have any questions or concerns If you have any questions or concerns please do not hesitate to contact me. The office is [phone]. This note is constructed using voice recognition software. While every effort has been made to ensure accuracy figure refinisher and repairer errors may have been included. Yours sincerely, KOFFI Hinkle Coding Level of Care Code Est Pt Level 3 (45567) Complex EM visit Add On G2211 Diagnoses Incomplete bladder emptying R33.9 Urinary frequency R35.0 Microscopic hematuria R31.29 CPT Codes Post Residual Void - PVR CPT Code: 58007-Nodk Void Residual by ultrasound ([id number])
== END 2024-03-16 12:07 | disposition home or self-care (01) ==
PROVIDERS: PCP Registered Nurse; Visit Provider Nurse Practitioner Family
DX: R33.9 Retention of urine, unspecified (principal); R35.0 Frequency of micturition; R31.29 Other microscopic hematuria; Z13.9 Encounter for screening, unspecified
CPT/HCPCS: 99213; G2211

== ENCOUNTER → 2024-03-16 11:38 | Outpatient (BNVA) | payer MEDICARE, SELFPAY | PROVIDERS: PCP Registered Nurse; Visit Provider Nurse Practitioner Family | DX: R33.9 Retention of urine, unspecified (principal); R35.0 Frequency of micturition; R31.29 Other microscopic hematuria | CPT/HCPCS: 51798; 81003; 99212 ==

== ENCOUNTER 2024-04-08 11:52 | Outpatient (REF) | payer MEDICARE, SELFPAY ==
[2024-04-08 15:52] LABS: MANUAL DIFF FLAG NO
[2024-04-08 16:00] LABS: Basophils Absolute Auto 0.1 X10*3/uL (0.0-0.2); Basophils Percent Auto 1.2 % (0-2); Eosinophils Absolute Auto 0.4 X10*3/uL (0.0-0.4); Eosinophils Percent Auto 6.9 % (0-4); Hematocrit 30.8 % (37.0-47.0); Hemoglobin 10.2 g/dl (12.0-16.0); Imm Gran Abs Auto 0.01 X10*3/uL (0.00-0.03); Imm Gran Pct Auto 0.2 % (0.0-0.4); Lymphocytes Absolute Auto 2.5 X10*3/uL (1.2-4.9); Lymphocytes Percent Auto 48.5 % (20-40); Mean Corpuscular HGB Conc 33.1 g/dl (31.0-35.0); Mean Corpuscular Hemoglobin 32.2 pg (27.0-33.0); Mean Corpuscular Volume 97.2 fL (80.0-98.0); Mean Platelet Volume 10.9 fL (9.4-12.3); Monocytes Absolute Auto 0.5 X10*3/uL (0.1-1.2); Monocytes Percent Auto 10.7 % (2-11); Neutrophils Absolute Auto 1.6 x10*3/uL (2.0-8.3); Neutrophils Percent Auto 32.5 % (45-73); Platelet Count 185 X10*3/uL (160-400); Red Blood Count 3.17 X10*6/uL (4.20-5.50); Red Cell Distribution Width 13.2 % (11.0-16.0); White Blood Count 5.1 X10*3/uL (4.8-10.8)
[2024-04-08 16:15] LABS: Alanine Aminotransferase 14 U/L (0-31); Albumin Level 3.8 g/dL (3.5-5.0); Alkaline Phosphatase 77 U/L (39-117); Anion Gap 11 (12-20); Aspartate Amino Transferase 18 U/L (5-31); Bilirubin Total 0.2 mg/dL (0.0-1.0); Blood Urea Nitrogen 33 mg/dL (9-16); Carbon Dioxide 29 mmol/L (22-29); Chloride 105 mmol/L (96-108); Cholesterol 116 mg/dL (<200); Estimated Glomerular Filt Rate 45; Glucose Random 76 mg/dL (60-115); HDL Cholesterol 56 mg/dL (>40); LDL Cholesterol Calculated 45 mg/dL (<100); Potassium 4.5 mmol/L (3.3-5.1); Sodium 140 mmol/L (135-145); Total Protein 7.7 g/dL (6.5-8.0); Triglycerides 78 mg/dL (<150)
[2024-04-08 16:30] LABS: Ferritin 25 ng/mL (10-250)
== END 2024-04-08 11:53 | disposition home or self-care (01) ==
LOC: HO.HHCL 11:52
PROVIDERS: Visit Provider Registered Nurse
DX: D50.9 Iron deficiency anemia, unspecified (principal); I10 Essential (primary) hypertension
CPT/HCPCS: 36415; 80053; 80061; 82728; 85025

== ENCOUNTER 2024-04-15 09:43 | Outpatient (REF) | payer MEDICARE, SELFPAY ==
--- NOTE | ~2024-04-15 | MM_ITS ---
EXAMINATION: BONE DENSITOMETRY CLINICAL INDICATION: Osteopenia. COMPARISON: Previous BD dated 04/11/2022 and baseline BD dated 11/04/2005. TECHNIQUE: Using a [employer] DXA System (software version: 13.1) manufactured by [employer], dual-energy x-ray absorptiometry was performed of the lumbar spine and left hip. The images are of good technical quality. Summary results are attached. FINDINGS: LEFT FEMUR, NECK: Current: BMD 0.864 g/cm2, Z-score 0.7, T-score -1.3, osteopenia. Prior: BMD 0.864 g/cm2. Baseline: BMD 0.930 g/cm2. LEFT FEMUR, TOTAL: Current: BMD 0.931 g/cm2, Z-score 1.1, T-score -0.6, normal, 2.5% increase from previous, 14.5% decrease from baseline (<5% change is not significant). Prior: BMD 0.908 g/cm2. Baseline: BMD 1.089 g/cm2. AP SPINE L1-L4: Current: BMD 1.097 g/cm2, Z-score 1.1, T-score -0.7, normal, 4.3% increase from previous, 3.9% increase from baseline (<5% change is not significant). Prior: BMD 1.052 g/cm2. Baseline: BMD 1.056 g/cm2. IDENTIFIED RISK FACTORS: Menopause, hysterectomy, osteoporosis, parental hip fracture, height loss, history of fracture (adult). HISTORY OF FRACTURE: Humerus. MEDICATIONS: Calcium supplements or multivitamin, vitamin D. MM/XR DEXA axial skeleton IMPRESSION: 1. DIAGNOSIS: Osteopenia based on the lowest T-score value of -1.3 in the femoral neck applying World Health Organization criteria. 2. 10-YEAR FRACTURE RISK PREDICTION, FRAX: Major osteoporotic fracture (clinical spine, forearm, hip or shoulder) 8.8%. Hip fracture 1.4%. 3. Treatment Recommendations: NOF guidelines recommend consideration for treatment in postmenopausal women and men age 50 and older presenting with the following: -A hip or vertebral (clinical or morphometric) fracture. -T-score less than or equal to -2.5 at the femoral neck or spine after appropriate evaluation to exclude secondary causes. -Low bone mass at the hip or spine and a 10-year fracture probability by FRAX of greater than or equal to 3% for hip fracture or greater than or equal to 20% for major osteoporotic fracture based on the [place] adapted WHO algorithm. 4. Other Recommendations: All treatment decisions require clinical judgment and consideration of individual patient factors, including patient preferences, comorbidities, previous drug use, risk factors not captured in the FRAX model (e.g. frailty, falls, vitamin D deficiency, increased bone turnover, interval significant decline in bone density) and possible under or overestimation of fracture risk by FRAX. Additional medical evaluation for secondary cause of low bone mineral density may be appropriate. FUTURE SCAN RECOMMENDATION: People with diagnosed cases of osteoporosis or at high risk for fracture should have regular bone mineral density tests. For patients eligible for Medicare, routine testing is allowed once every 2 years. The testing frequency can be increased to one year for patients who have rapidly progressing disease, those who are receiving or discontinuing medical therapy to restore bone mass, or have additional risk factors.
== END 2024-04-15 09:44 | disposition home or self-care (01) ==
LOC: HO.MAMMO 09:43
PROVIDERS: PCP Registered Nurse; Visit Provider Registered Nurse
DX: Z13.820 Encounter for screening for osteoporosis (principal); Z78.0 Asymptomatic menopausal state; M85.80 Other specified disorders of bone density and structure, unspecified site
CPT/HCPCS: 77080

== ENCOUNTER 2024-05-04 10:39 | Outpatient (REF) | payer MEDICARE, SELFPAY ==
[2024-05-04 11:21] LABS: MANUAL DIFF FLAG NO
[2024-05-04 11:33] LABS: Basophils Percent Auto 0.7 % (0-2); Eosinophils Absolute Auto 0.4 X10*3/uL (0.0-0.4); Eosinophils Percent Auto 7.7 % (0-4); Hematocrit 31.1 % (37.0-47.0); Hemoglobin 10.3 g/dl (12.0-16.0); Imm Gran Abs Auto 0.01 X10*3/uL (0.00-0.03); Imm Gran Pct Auto 0.2 % (0.0-0.4); Immature Retic Fraction 13.5 % (3.0-15.9); Lymphocytes Percent Auto 43.4 % (20-40); Mean Corpuscular HGB Conc 33.1 g/dl (31.0-35.0); Mean Corpuscular Volume 96.6 fL (80.0-98.0); Mean Platelet Volume 10.8 fL (9.4-12.3); Monocytes Absolute Auto 0.4 X10*3/uL (0.1-1.2); Neutrophils Absolute Auto 1.8 x10*3/uL (2.0-8.3); Platelet Count 165 X10*3/uL (160-400); Red Blood Count 3.22 X10*6/uL (4.20-5.50); Red Cell Distribution Width 12.8 % (11.0-16.0); Retic HGB Equivalent 34.5 pg (30.0-35.0); Reticulocyte Percent 1.3 % (0.5-1.8); Reticulocytes Absolute 0.042 X10*6/uL (0.026-0.095); White Blood Count 4.5 X10*3/uL (4.8-10.8)
[2024-05-04 12:01] LABS: Iron 44 mcg/dL (30-160); Percent Iron Saturation 21 % (15-50); Total Iron Binding Capacity 210 mcg/dL (228-428); Unsaturated Iron Binding 166 ug/dL
[2024-05-04 12:40] LABS: Folate 13.3 ng/mL (> or = 4.0); Vitamin B12 531 pg/mL (200-900)
== END 2024-05-04 10:40 | disposition home or self-care (01) ==
LOC: HO.HHCL 10:39
PROVIDERS: Visit Provider Registered Nurse
DX: D64.9 Anemia, unspecified (principal)
CPT/HCPCS: 36415; 82607; 82746; 83540; 85025; 85045

== ENCOUNTER 2024-05-19 11:55 | Outpatient (AMB) | payer MEDICARE, SELFPAY ==
--- NOTE | 2024-05-19 11:57 | A.OFFVIS_ITS ---
Intake Visit Reasons: 2m/PVR Intake Note: Patient presents today for a follow up on: Incomplete bladder emptying and PVR Urology Medications: Terazosin Blood Thinner: None Post Void Residual: 104ml's Dramatic Coach Required: Yes Dramatic Coach Name: Deni Hooper Accompanied by: Self / Same As Patient Allergies BIPHOSPHONATES Allergy (Unknown, Uncoded 05/19/24 13:43) Unknown Medication List - Last Reconciled 05/19/24 by GAYATHRI Hinkle- albuterol sulfate 90 mcg/actuation inhalation amlodipine 5 mg PO DAILY amoxicillin-pot clavulanate 875-125 mg 1 tab PO BID 10 days calcium carbonate-vitamin D3 600 mg-10 mcg (400 unit) 1 tab PO BID docusate sodium 100 mg PO QAM ergocalciferol (vitamin D2) PO ferrous sulfate (FeroSul) 325 mg PO DAILY fluticasone propion-salmeterol 250-50 mcg/dose 1 ea inhalation BID lisinopril-hydrochlorothiazide 20-25 mg 1 tab PO DAILY loratadine 10 mg PO DAILY naproxen 375 mg PO BID rosuvastatin 20 mg PO BEDTIME HPI Comments Details: Kalli is a very pleasant 74 year old Nigerien speaking patient of Dr. Sarkar. She has a PMH of obesity, allergic rhinitis, hypertension, hypercholesteremia, moderate persistent asthma, and osteopenia. She presents to the office today for follow-up of her microscopic hematuria, renal cyst and incomplete bladder emptying. In discussion with the patient today she reports to be doing and feeling well. She reports compliance with terazosin 1 mg at bedtime. In office urinalysis results reviewed with the patient today 1+ leukocytes negative nitrates. PVR 104 mL. She reports episodes of urinary frequency she had been experiencing has since subsided. However describes feeling lower urinary pressure upon urination. In assessment of the patient today grade 2 cystocele noted. Discussed further treatment options to include pessary is as first-line therapy for pelvic organ prolapse. Previous workup has included a retroperitoneal ultrasound noting bilateral kidneys with no calculi. Right kidney with 1.8 cm lower pole cysts. 1.7 cm upper pole cyst there is no indication for follow-up imaging. Left kidney with 1.1 cm lower pole cyst and 1.0 cm upper pole cyst with benign features. There is no indication for follow- up imaging per radiology report. The bladder is partially distended. Bilateral ureteral jets are demonstrated. Pre void bladder volume is approximately 235mls postvoid bladder volume is approximately 100 mL. Urine Cytology 02/17 Negative for high-grade urothelial carcinoma. She denies dysuria, foul smelling urine, changes to urinary stream, flank pain, fever, and or chills. Ring with support inserted without difficulty and patient tolerated procedure well; Size 5 was placed. She was able to void in office with pessary in place. She was also able to bear down and pessary stayed in place. She otherwise offers no other issues or concerns at this time. 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 Allergic rhinitis Diverticular disease of colon Essential hypertension Hypercholesteremia Moderate persistent asthma Osteopenia Surgical History History of hysterectomy Review of Systems Eyes Reports no additional complaints ENT Reports no additional complaints Card Reports as per HPI Resp Reports as per HPI GI Reports no additional complaints Reports as per HPI Musc Reports as per HPI Neuro Reports no additional complaints Psych Reports no additional complaints Endo Reports no additional complaints Иван/Lymph Reports no additional complaints Aller/Immun Reports no additional complaints Physical Exam Const General: cooperative, healthy appearing, comfortable, no acute distress, well developed, alert and awake Nutritional Appearance: overweight Orientation/consciousness: patient oriented x3 Limitations: no limitations HEENT Head: Yes normal to inspection, Yes normocephalic and Yes atraumatic Ears: hearing grossly normal bilaterally Eyes General: appearance normal, both eyes and all related structures Neck Neck: Yes normal visual inspection and Yes trachea midline Chest Chest palpation & inspection: normal inspection of the chest Resp Effort & Inspection: normal respiratory effort and able to speak in complete sentences Cardio Rate: regular rate GI Inspection: Yes normal to inspection General: Yes no CVA tenderness Back/Spine/Pelvis Back: no CVA tenderness Skin General skin exam: no rashes or lesions noted Neuro General: patient oriented x3 Extrem General: Yes normal to inspection Psych Appearance: grossly normal and well kempt Mental Status: mental status grossly normal Speech and movement: Normal speech and movement present and Clear speech present Affect: normal affect Attitude: cooperative Thought process: Normal thought process present Thought content: Normal thought content present Insight: Fair insight present (Psych) Judgement: Fair judgement present (Psych) Office Procedures Post Void Residual Post Residual Void Post Void Residual (PVR): 104 [id number] Void Residual by ultrasound Results AMB Urinalysis, Automated UA Leukoctes 70 Deepti/uL Last Edit by Kenneth Love on 05/19/24 12:12 UA Nitrite Negative Last Edit by Kenneth Love on 05/19/24 12:12 UA Urobilinogen 0.2 mg/dL Last Edit by [employer] on 05/19/24 12:12 UA Protein 0 mg/dL Last Edit by [employer] on 05/19/24 12:12 UA pH 6.5 Last Edit by [employer] on 05/19/24 12:12 UA Blood 10 Juan Diego/uL Last Edit by [employer] on 05/19/24 12:12 UA Specific Mobile 1.010 Last Edit by [employer] on 05/19/24 12:12 UA Ketone Negative Last Edit by [employer] on 05/19/24 12:12 UA Bilirubin 0 mg/dL Last Edit by [employer] on 05/19/24 12:12 UA Glucose 0 mg/dL Last Edit by [employer] on 05/19/24 12:12 Results Reviewed Results Reviewed: Laboratory Last Values Urine pH (Auto) 6.5 05/19/24 12:10 Specific Mobile (Auto) 1.010 05/19/24 12:10 Urine Protein (Auto) 0 mg/dL 05/19/24 12:10 Glucose (UA)(Auto) 0 mg/dL 05/19/24 12:10 Urine Ketones (Auto) Negative 05/19/24 12:10 Urine Blood (Auto) 10 Juan Diego/uL 05/19/24 12:10 Urine Nitrite (Auto) Negative 05/19/24 12:10 Urine Bilirubin (Auto) 0 mg/dL 05/19/24 12:10 Urine Urobilinogen (Auto) 0.2 mg/dL 05/19/24 12:10 Leukocyte Esterase (Auto) 70 Deepti/uL 05/19/24 12:10 Assessment & Plan Assessment & Plan (1) Incomplete bladder emptying: Code(s): R33.9 - Retention of urine, unspecified Category: Medical (2) Microscopic hematuria: Code(s): R31.29 - Other microscopic hematuria Category: Medical (3) Cystocele with prolapse: Code(s): N81.4 - Uterovaginal prolapse, unspecified Category: Medical Plan In office urinalysis results reviewed with the patient today; as noted above. Stopped terazosin; as discussed Pessary inserted without difficulty. Education provided as well as printed Education. Follow-up in 2-4 weeks; or sooner with any issues, concerns, and or questions. Orders: Orders AMB Urinalysis Automated Today Z13.9 - Encounter for screening, unspecified AMB Post Void Residual by ultrasound Today R33.9 - Retention of urine, unspecified Medications: Discontinued terazosin Discontinued Reason: Doctor's Order 1 mg PO BEDTIME 90 days 90 caps 1RF R39.12 - Poor urinary stream Patient Instructions: The patient had an opportunity to ask questions regarding the treatment plan. All questions were answered. Physical exam, labs, and imaging were discussed and reviewed in detail. As well as risks, benefits, and discussion of treatment choices. No major barriers to understanding were identified. The patient expressed understanding and agreement with the above treatment plan. The patient was made aware they should contact our office by phone for worsening of their current condition, the appearance of new symptoms, or with any questions or concerns. Compliance is encouraged with any medications and follow up testing that is ordered. It is a privilege to be allowed the opportunity to participate in? your urological care.? Again, if you have any questions or concerns If you have any questions or concerns please do not hesitate to contact me. The office is [phone]. This note is constructed using voice recognition software. While every effort has been made to ensure accuracy product manufacturing professional errors may have been included. Yours sincerely, KOFFI Hinkle Coding Level of Care Code Est Pt Level 4 (70738) Complex EM visit Add On G2211 Diagnoses Incomplete bladder emptying R33.9 Microscopic hematuria R31.29 Cystocele with prolapse N81.4 CPT Codes Post Residual Void - PVR CPT Code: 04233-Kbjh Void Residual by ultrasound ([id number]) Time Spent (min) 35
== END 2024-05-19 12:37 | disposition home or self-care (01) ==
PROVIDERS: PCP Registered Nurse; Visit Provider Nurse Practitioner Family
DX: R33.9 Retention of urine, unspecified (principal); R31.29 Other microscopic hematuria; N81.4 Uterovaginal prolapse, unspecified; Z13.9 Encounter for screening, unspecified
CPT/HCPCS: 99214; G2211

== ENCOUNTER → 2024-05-19 11:55 | Outpatient (BNVA) | payer MEDICARE, SELFPAY | PROVIDERS: PCP Registered Nurse; Visit Provider Nurse Practitioner Family | DX: R33.9 Retention of urine, unspecified (principal); R31.29 Other microscopic hematuria; N81.4 Uterovaginal prolapse, unspecified | CPT/HCPCS: 51798; 81003; 99212 ==

== ENCOUNTER 2024-07-12 11:23 | Outpatient (AMB) | payer OTHER, SELFPAY ==
--- NOTE | 2024-07-12 11:42 | A.OFFVIS_ITS ---
Intake Visit Reasons: follow up/pessary Intake Note: Patient presents today for a follow up on: Incomplete bladder emptying and PVR Urology Medications: terazosin Blood Thinner: None Post Void Residual: 63ml's Stock Digger Required: Yes Stock Digger Name: Pearl [id number] Accompanied by: Self / Same As Patient Allergies BIPHOSPHONATES Allergy (Unknown, Uncoded 07/12/24 12:02) Unknown Medication List - Last Reconciled 07/12/24 by GAYATHRI Hinkle- albuterol sulfate 90 mcg/actuation inhalation amlodipine 5 mg PO DAILY amoxicillin-pot clavulanate 875-125 mg 1 tab PO BID 10 days calcium carbonate-vitamin D3 600 mg-10 mcg (400 unit) 1 tab PO BID docusate sodium 100 mg PO QAM ergocalciferol (vitamin D2) PO ferrous sulfate (FeroSul) 325 mg PO DAILY fluticasone propion-salmeterol 250-50 mcg/dose 1 ea inhalation BID lisinopril-hydrochlorothiazide 20-25 mg 1 tab PO DAILY loratadine 10 mg PO DAILY naproxen 375 mg PO BID rosuvastatin 20 mg PO BEDTIME terazosin 1 mg PO DAILY HPI Comments Details: Kalli is a very pleasant 74 year old Romanian speaking patient of Dr. Sarkar. She has a PMH of obesity, allergic rhinitis, hypertension, hypercholesteremia, moderate persistent asthma, and osteopenia. She presents to the office today for follow-up of her microscopic hematuria, renal cyst and incomplete bladder emptying. Of note, patient was seen approximately 3 months ago at which time a pessary ring with support; Size 5 was placed for grade 2 cystocele. In discussion with the patient today she reports feeling pessary was unhelpful as i t fell out multiple times. We attempted to upsized as well as trial other pessaries without improvement in lower urinary tract symptoms. We discussed further treatment options for pelvic organ prolapse Previous workup has included a retroperitoneal ultrasound noting bilateral kidneys with no calculi. Right kidney with 1.8 cm lower pole cysts. 1.7 cm upper pole cyst there is no indication for follow-up imaging. Left kidney with 1.1 cm lower pole cyst and 1.0 cm upper pole cyst with benign features. There is no indication for follow- up imaging per radiology report. The bladder is partially distended. Bilateral ureteral jets are demonstrated. Pre void bladder volume is approximately 235mls postvoid bladder volume is approximately 100 mL. Urine Cytology 02/17 Negative for high-grade urothelial carcinoma. In office urinalysis results reviewed with the patient today 3+ leukocytes negative nitrates. When asked she denies any UTI like symptoms. She continues to report mixed urinary incontinence. When asked she denies dysuria, foul smelling urine, changes to urinary stream, flank pain, fever, and or chills. PVR 63 mL. She otherwise offers no other issues or concerns at this time. 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 Allergic rhinitis Diverticular disease of colon Essential hypertension Hypercholesteremia Moderate persistent asthma Osteopenia Surgical History History of hysterectomy Review of Systems Eyes Reports no additional complaints ENT Reports no additional complaints Card Reports as per HPI Resp Reports as per HPI GI Reports no additional complaints Reports as per HPI Musc Reports as per HPI Neuro Reports no additional complaints Psych Reports no additional complaints Endo Reports no additional complaints Иван/Lymph Reports no additional complaints Aller/Immun Reports no additional complaints Physical Exam Const General: cooperative, healthy appearing, comfortable, no acute distress, well developed, alert and awake Nutritional Appearance: overweight Orientation/consciousness: patient oriented x3 Limitations: no limitations HEENT Head: Yes normal to inspection, Yes normocephalic and Yes atraumatic Ears: hearing grossly normal bilaterally Eyes General: appearance normal, both eyes and all related structures Neck Neck: Yes normal visual inspection and Yes trachea midline Chest Chest palpation & inspection: normal inspection of the chest Resp Effort & Inspection: normal respiratory effort and able to speak in complete sentences Cardio Rate: regular rate GI Inspection: Yes normal to inspection General: Yes no CVA tenderness Back/Spine/Pelvis Back: no CVA tenderness Skin General skin exam: no rashes or lesions noted Neuro General: patient oriented x3 Extrem General: Yes normal to inspection Psych Appearance: grossly normal and well kempt Mental Status: mental status grossly normal Speech and movement: Normal speech and movement present and Clear speech present Affect: normal affect Attitude: cooperative Thought process: Normal thought process present Thought content: Normal thought content present Insight: Fair insight present (Psych) Judgement: Fair judgement present (Psych) Office Procedures Post Void Residual Post Residual Void Post Void Residual (PVR): 63 [id number] Void Residual by ultrasound Results AMB Urinalysis, Automated UA Leukoctes 500 Deepti/uL Last Edit by Kenneth Love on 07/12/24 11:53 UA Nitrite Last Edit by Kenneth Love on 07/12/24 11:53 UA Urobilinogen 0.2 mg/dL Last Edit by Kenneth Love on 07/12/24 11:53 UA Protein 15 mg/dL Last Edit by Kenneth Love on 07/12/24 11:53 UA pH 7.5 Last Edit by Kenneth Love on 07/12/24 11:53 UA Blood 0 Juan Diego/uL Last Edit by Kenneth Love on 07/12/24 11:53 UA Specific [place] 1.010 Last Edit by Kenneth Love on 07/12/24 11:53 UA Ketone Last Edit by Kenneth Love on 07/12/24 11:53 UA Bilirubin 0 mg/dL Last Edit by Kenneth Love on 07/12/24 11:53 UA Glucose 0 mg/dL Last Edit by Kenneth Love on 07/12/24 11:53 Results Reviewed Results Reviewed: Laboratory Last Values Urine pH (Auto) 7.5 07/12/24 11:52 Specific [place] (Auto) 1.010 07/12/24 11:52 Urine Protein (Auto) 15 mg/dL 07/12/24 11:52 Glucose (UA)(Auto) 0 mg/dL 07/12/24 11:52 Urine Blood (Auto) 0 Juan Diego/uL 07/12/24 11:52 Urine Bilirubin (Auto) 0 mg/dL 07/12/24 11:52 Urine Urobilinogen (Auto) 0.2 mg/dL 07/12/24 11:52 Leukocyte Esterase (Auto) 500 Deepti/uL 07/12/24 11:52 Assessment & Plan Assessment & Plan (1) Cystocele with prolapse: Code(s): N81.4 - Uterovaginal prolapse, unspecified Category: Medical (2) Renal cyst: Code(s): N28.1 - Cyst of kidney, acquired Category: Medical (3) Incomplete bladder emptying: Code(s): R33.9 - Retention of urine, unspecified Category: Medical (4) Urinary frequency: Code(s): R35.0 - Frequency of micturition Category: Medical (5) Microscopic hematuria: Code(s): R31.29 - Other microscopic hematuria Category: Medical Plan In office urinalysis results reviewed with the patient today; as noted above. PVR 63 mL. Discussed at length further treatment options of bladder prolapse. Multiple pessary options trialed and failed. Will refer to urogynecology for further assessment evaluation. Continue low-dose terazosin to assist with incomplete bladder emptying. Patient denies any UTI like symptoms at this time. Follow-up in 4 months; or sooner with any issues, concerns, and or questions. Orders: Orders AMB Urinalysis Automated Today Z13.9 - Encounter for screening, unspecified AMB Post Void Residual by ultrasound Today R35.0 - Frequency of micturition Referrals Urogynecology Referral N81.4 - Uterovaginal prolapse, unspecified Medications: Discontinued amoxicillin-pot clavulanate 875-125 mg Discontinued Reason: Patient Completed Course 1 tab PO BID 10 days 20 tabs 0RF N39.0 - Urinary tract infection, site not specified Patient Instructions: The patient had an opportunity to ask questions regarding the treatment plan. All questions were answered. Physical exam, labs, and imaging were discussed and reviewed in detail. As well as risks, benefits, and discussion of treatment choices. No major barriers to understanding were identified. The patient expressed understanding and agreement with the above treatment plan. The patient was made aware they should contact our office by phone for worsening of their current condition, the appearance of new symptoms, or with any questions or concerns. Compliance is encouraged with any medications and follow up testing that is ordered. It is a privilege to be allowed the opportunity to participate in? your urological care.? Again, if you have any questions or concerns If you have any questions or concerns please do not hesitate to contact me. The office is [phone]. This note is constructed using voice recognition software. While every effort has been made to ensure accuracy land leases and rentals manager errors may have been included. Yours sincerely, KOFFI Hinkle Coding Level of Care Code Est Pt Level 3 (29449) Complex EM visit Add On G2211 Diagnoses Cystocele with prolapse N81.4 Renal cyst N28.1 Incomplete bladder emptying R33.9 Urinary frequency R35.0 Microscopic hematuria R31.29 CPT Codes Post Residual Void - PVR CPT Code: 40783-Lmng Void Residual by ultrasound ([id number])
== END 2024-07-12 12:08 | disposition home or self-care (01) ==
PROVIDERS: PCP Registered Nurse; Visit Provider Nurse Practitioner Family
DX: N81.4 Uterovaginal prolapse, unspecified (principal); N28.1 Cyst of kidney, acquired; R33.9 Retention of urine, unspecified; R35.0 Frequency of micturition; R31.29 Other microscopic hematuria; Z13.9 Encounter for screening, unspecified
CPT/HCPCS: 99213; G2211

== ENCOUNTER 2024-07-12 11:23 | Outpatient (REF) | payer OTHER, SELFPAY ==
[2024-07-12 17:06] LABS: Urine Cytology See Pathology rpt
== END 2024-07-12 11:24 | disposition home or self-care (01) ==
LOC: HO.LNP 11:23
PROVIDERS: PCP Registered Nurse; Visit Provider Nurse Practitioner Family
DX: R31.29 Other microscopic hematuria (principal); R33.9 Retention of urine, unspecified; R35.0 Frequency of micturition; N28.1 Cyst of kidney, acquired; N81.4 Uterovaginal prolapse, unspecified; N39.0 Urinary tract infection, site not specified
CPT/HCPCS: 51798; 81003; 88112; 99212

== ENCOUNTER 2024-07-29 20:23 | Inpatient (IN) | payer OTHER, SELFPAY ==
--- NOTE | ~2024-07-29 | CT_ITS ---
EXAMINATION: CT ABDOMEN AND PELVIS WITHOUT CONTRAST CLINICAL INFORMATION: Bilateral flank pain COMPARISON: Renal ultrasound 12/16/2023. Abdominal ultrasound 09/16/2023. CT abdomen and pelvis 09/06/2013 TECHNIQUE: Multidetector volumetric imaging was performed from the superior aspect of the liver through the pubic symphysis. Sagittal and coronal reformatted images were obtained on the technologist's workstation. This CT examination was performed using dose optimization techniques as appropriate, variously including the following: *Automated exposure control *Adjustment of mA and/or kV according to patient size (this includes techniques or standardized protocols for targeted exams where dose is matched to indication/reason for exam; i.e. extremities or head) *Use of iterative reconstruction technique DLP: 527 mGy-cm FINDINGS: LUNG BASES: The visualized lung bases are unremarkable. LIVER, GALLBLADDER, AND BILIARY TREE: The liver is normal in size, shape, and attenuation. No focal hepatic lesion or biliary ductal dilatation is present. The gallbladder is unremarkable with no evidence of radiopaque gallstones, gallbladder wall thickening, or obvious pericholecystic inflammatory changes. PANCREAS: Unremarkable. SPLEEN: Unremarkable. ADRENAL GLANDS: No abnormalities. KIDNEYS AND URETERS: A 1.6 cm diameter exophytic low density (6 Hounsfield units) focus associated with the superior pole right kidney is most consistent with a benign, simple cyst requiring no additional imaging follow-up. A 2 cm rounded low-density focus (0 Hounsfield unit) associated with the inferior pole right kidney is most consistent with benign, simple cyst requiring no additional imaging follow-up. Several subcentimeter rounded foci are present elsewhere in the left right kidneys and are too small to specifically characterize but are most suspicious for benign, simple cysts and do not specifically warrant additional imaging follow-up in the basis of this examination. No urolithiasis. No hydronephrosis or perinephric inflammatory changes. BLADDER: Unremarkable. GASTROINTESTINAL TRACT: Moderate colonic diverticulosis. Moderate segmental concentric mural thickening of the width of up to 9 mm of the splenic flexure and proximal descending colon with minimal reticulation of the adjacent pericolonic fat findings extend into the distal transverse colon. Cecal bascule is noted. Normal appearance of the appendix and terminal ileum. No free intraperitoneal fluid or gas collections. No intestinal dilatation. Normal appearance of the stomach. ABDOMINAL WALL: Small. Periumbilical hernia containing omental fat measuring 1 cm in diameter without associated inflammatory changes. LYMPH NODES: Normal. VASCULAR: Mild diffusely scattered calcific atherosclerosis PELVIC VISCERA: Uterus is not visualized. No adnexal lesions. OSSEOUS STRUCTURES: No suspicious skeletal abnormality is. Multiple vertebral disc space narrowing facet hypertrophic changes and endplate ossific ptosis of the thoracic and lumbar spine. Grade 1 degenerative anterolisthesis L4-L5. CT/CT abdomen pelvis wo IV con IMPRESSION: *Moderate segmental concentric mural thickening of the splenic flexure of the colon. Findings are suspicious for ischemic colitis. Infectious colitis including C. difficile colitis could present with similar findings. No evidence of intestinal perforation. *Moderate colonic diverticulosis. *No urolithiasis. No hydronephrosis. Electronically signed by: Irvin Sheets MD 07/30/2024 01:04 AM EDT RP
[2024-07-29 20:29] VITALS: BP 132/60; PULSE 76; O2SAT 97
[2024-07-29 20:36] VITALS: BP 116/55; PULSE 73; RESP 16; TEMP 36.8; O2SAT 97; BMI 33.7
--- NOTE | 2024-07-29 20:38 | ED.ABDPAIN ---
HPI - Abdominal Pain General Chief Complaint: Abdominal Pain Stated Complaint: abd pain, n/v Time Seen by Provider: 07/29/24 23:24 Source: patient and family Mode of arrival: ambulatory Limitations: no limitations History of Present Illness ED Provider: NANCY HPI narrative: 74 yo female with PMH of HTN, HLD, asthma, osteopenia, bladder prolapse, imcomplete bladder empyting reports after drinking chocolate milk yesterday she started to sweat and have bilateral abdominal pain with n/v no diarrhea. It resolved. Today she tried to eat a small donut and the n/v returned. She has not been able to eat and her abdomen is still intermittent painful. She had prior hysterectomy. She denies sick contacts, fevers. She did not have sweats today. She has not had diarrhea. MD elicited complaint: abdominal pain Pertinent past history: none Onset (ago): day(s) (2) Pain Consistency: intermittent Location: diffuse Severity: moderate Quality: cramping Radiation: none Migration to: no migration Exacerbating factors: eating Relieving factors: nothing Context: possible food poisoning Associated symptoms: nausea, vomiting and chills Related Data Home Medications ?Medication ?Instructions ?Recorded ?Confirmed albuterol sulfate 90 mcg/actuation inhalation 10/22/23 12/23/23 aerosol inhaler amlodipine 5 mg tablet 5 mg PO DAILY 10/22/23 12/23/23 calcium carbonate 600 mg-vitamin 1 tab PO BID 10/22/23 12/23/23 D3 10 mcg (400 unit) tablet docusate sodium 100 mg capsule 100 mg PO QAM 10/22/23 12/23/23 ergocalciferol (vitamin D2) 1,250 PO 10/22/23 12/23/23 mcg (50,000 unit) capsule ferrous sulfate 325 mg (65 mg 325 mg PO DAILY 10/22/23 12/23/23 iron) tablet (FeroSul) fluticasone 250 mcg-salmeterol 50 1 ea inhalation BID 10/22/23 12/23/23 mcg/dose blistr powdr for inhalation lisinopril 20 1 tab PO DAILY 10/22/23 12/23/23 mg-hydrochlorothiazide 25 mg tablet loratadine 10 mg tablet 10 mg PO DAILY 10/22/23 12/23/23 rosuvastatin 20 mg tablet 20 mg PO BEDTIME 10/22/23 12/23/23 naproxen 375 mg tablet 375 mg PO BID 03/16/24 terazosin 1 mg capsule 1 mg PO DAILY 07/12/24 Allergies Allergy/AdvReac Type Severity Reaction Status Date / Time BIPHOSPHONATES Allergy Unknown Unknown Uncoded 07/29/24 20:41 Review of Systems Review of Systems Constitutional : No Weight loss, No Fever, No Chills ENT/Mouth : No sore throat, No Rhinorrhea Eyes: No Swelling, No Redness Cardiovascular : No Chest Pain, No SOB, NoEdema Respiratory : No Cough, No Sputum, No Wheezing Gastrointestinal : Positive Nausea, Positive Vomiting, no Diarrhea, positive abdominal Pain, No Hematochezia, No Melena Genitourinary : No Dysuria, No Urinary Frequency, No Hematuria, No Urgency Musculoskeletal : No joint pain, No Myalgias, No Joint Swelling Skin : No Skin Lesions, No rash Neuro : No Weakness, No Numbness, No Dizziness, No Headache Psych : No Anxiety/Panic, No Depression All other systems reviewed and are negative. [facility] Past Medical History Attestation statement: The following information was validated with the patient. 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 Allergic rhinitis Diverticular disease of colon Essential hypertension Hypercholesteremia Moderate persistent asthma Osteopenia Surgical History History of hysterectomy Social History Social History Smoked in Last 30 Days: No Use of substances other than those prescribed or required for medical reasons: No Advance Directives: No Advance Directives Information Provided: Yes Do you have a plan to hurt others: No Plan Physical Exam ED Vital Signs: Vital Signs - 24 hr 07/29/24 20:36 07/29/24 21:55 07/29/24 23:14 Temperature 98.2 F 98.2 F 98.0 F Pulse Rate 73 73 78 Respiratory Rate 16 18 16 Blood Pressure 116/55 L 124/55 L 126/58 L Pulse Oximetry 97 99 96 Oxygen Delivery Method Room Air Room Air Room Air 07/29/24 23:25 Temperature 98.3 F Pulse Rate 74 Respiratory Rate 17 Blood Pressure 121/56 L Pulse Oximetry 97 Oxygen Delivery Method Room Air BMI result Body Mass Index 33.7 Appearance: Alert. Oriented X3. No acute distress. Eyes: Pupils equal, round and reactive to light. ENT: Pharynx normal. Neck: Normal inspection. Neck supple. CVS: Normal heart rate and rhythm. Pulses normal. Respiratory: No respiratory distress. Breath sounds normal. Abdomen: Soft and mild diffuse ttp mild distention Skin: Skin warm and dry. Normal skin color. Normal skin turgor. Extremities: No lower extremity edema. No calf ttp Neuro: Oriented X 3. No motor deficit. No sensory deficit. Course Course Course Narrative: This is a Rapid Medical Examination (RME) performed by Bertha Herring PA-C in triage. Full HPI, ROS, assessment and treatment plan per primary provider in the Main ED. 74 yo [place] speaking female with history of UTIs in the past, HTN, asthma who presents to the ER from home via EMS for evaluation of intermittent bilateral flank pain that radiates to her pelvic region that started last night. vomited last night and today. no fever, no urinary symptoms. abd soft with mild tenderness to the bilateral upper quadrants. appears well, VSS. minimal pain currently, comes in waves. Plan: labs, UA, CT scan Medical Decision Making Medical Decision Making [facility] Narrative: 74 yo female with PMH of HTN, HLD, asthma, osteopenia, bladder prolapse, imcomplete bladder empyting here with c/o chills, n/v intermittent x 2 days, abdominal pain after drinking chocolate milk but no diarrhea at this time basic labs, EKG, CT scan for SBO, diverticulitis. + UA at this time lactic acid, cultures ordered. IVF IV morphine, zofran ordered. No CP/SOB to suggest ACS. Differential Diagnosis Differential Diagnoses: The differential diagnosis associated with the presentation includes UTI, SBO, gastritis, enteritits, diverticulitis Admission/Observation Consideration of admission/observation: Escalation of care including admission/observation considered admit given CT scan read and needs serial exams Consult Healthcare Provider Management of the patient was discussed with: Hospitalist (will admit) Lab Data [facility] Lab Attestation statement: I reviewed the patient's lab results. 07/29/24 21:09 07/29/24 21:09 Labs: Lab Results 07/29/24 07/29/24 07/30/24 Range/Units 21:09 21:32 00:00 WBC 9.2 (4.8-10.8) X10*3/uL RBC 3.12 L (4.20-5.50) X10*6/uL Hgb 10.3 L (12.0-16.0) g/dl Hct 29.6 L (37.0-47.0) % MCV 94.9 (80.0-98.0) fL MCH 33.0 (27.0-33.0) pg MCHC 34.8 (31.0-35.0) g/dl RDW 13.0 (11.0-16.0) % Plt Count 184 (160-400) X10*3/uL MPV 10.0 (9.4-12.3) fL Immature Gran % (Auto) 0.3 (0.0-0.4) % Neut % (Auto) 65.7 (45-73) % Lymph % (Auto) 20.7 (20-40) % Fountain % (Auto) 9.5 (2-11) % Eos % (Auto) 3.4 (0-4) % Baso % (Auto) 0.4 (0-2) % Lymph # (Auto) 1.9 (1.2-4.9) X10*3/uL Fountain # (Auto) 0.9 (0.1-1.2) X10*3/uL Eos # (Auto) 0.3 (0.0-0.4) X10*3/uL Baso # (Auto) 0.0 (0.0-0.2) X10*3/uL Abs Immat Gran (auto) 0.03 (0.00-0.03) X10*3/uL Absolute Neuts (auto) 6.1 (2.0-8.3) x10*3/uL Absolute Nucleated RBC 0.000 (0.0-0.012) X10*3/uL Nucleated RBC % (auto) 0.0 (0.0-0.2) /100WBC Sodium 139 (135-145) mmol/L Potassium 4.0 (3.3-5.1) mmol/L Chloride 103 (96-108) mmol/L Carbon Dioxide 26 (22-29) mmol/L Anion Gap 14 (12-20) BUN 39 H (9-16) mg/dL Creatinine 1.25 (0.5-1.4) mg/dL Estim Creat Clear Calc 30.1 Estimated GFR 42 Random Glucose 108 (60-115) mg/dL Lactic Acid 0.9 (0.5-2.0) mmol/L Calcium 10.8 H D (8.4-10.2) mg/dL Magnesium 1.8 (1.6-2.6) mg/dL Total Bilirubin 0.3 (0.0-1.0) mg/dL Direct Bilirubin 0.1 (0.0-0.5) mg/dL AST 19 (5-31) U/L ALT 15 (0-31) U/L Alkaline Phosphatase 85 (39-117) U/L Total Protein 7.9 (6.5-8.0) g/dL Albumin 4.0 (3.5-5.0) g/dL Lipase 26 (8-78) U/L Urine Color Yellow Urine Appearance Cloudy Urine pH 5.5 (5.0-9.0) Ur Specific [place] 1.015 (1.005-1.025) Urine Protein Negative (Neg-Trace) mg/dL Urine Glucose (UA) Negative (Negative) mg/dL Urine Ketones Negative (Negative) mg/dL Urine Blood Negative (Negative) Urine Nitrite Negative (Negative) Ur Leukocyte Esterase Large (3+) H (Negative) Urine RBC 0-2 (0-2) /HPF Urine WBC >50 H (0-5) /HPF Ur Squamous Epith Cells 6-10 (0-2) /HPF Urine Bacteria 1+ (None Seen) Hyaline Casts 3-5 (0-2) /LPF Independent Interpretation I performed an independent interpretation of an: EKG and CT Scan (has no diarrhea but has ischemic colitis findings) Interpretation: Rate: 81 Rhythm: NSR [place]: normal Normal P waves. Normal EMETERIO. Normal QRS complex. ST T wave : normal no GEN qTC: 443 prior studies: no acute ischemia The study has been interpreted contemporaneously by me. . Radiology Impression Discussion of test interpretation with radiology: I have reviewed the radiologist's reading. Independent Historian Clinical information obtained from an independent historian. History obtained from or confirmed by: Other (family) External Record Review External record reviewed: Office record Medications Administered Generic Name Dose Route Start Last Admin Trade Name Freq PRN Reason Stop Dose Admin Enoxaparin Sodium 40 mg 07/30/24 03:15 07/30/24 03:50 Enoxaparin Sodium 40 Mg/0.4 Ml Syringe SUBCUT 40 mg Q24H RICHARD Administration Sodium Chloride 1,000 mls @ 80 mls/hr 07/30/24 01:45 07/30/24 03:47 Ns IVCONT Infused .[id number] RICHARD Infusion Lactated Ringer's 1,000 mls @ 80 mls/hr 07/30/24 03:15 07/30/24 03:50 Lr IVCONT 07/30/24 15:14 80 mls/hr .[id number] RICHARD Administration Discontinued Medications Generic Name Dose Route Start Last Admin Trade Name Edq PRN Reason Stop Dose Admin Ceftriaxone Sodium 1 gm/ 50 mls @ 100 mls/hr 07/29/24 23:44 07/30/24 01:28 Sodium Chloride IV 07/30/24 00:13 Infused ONCE ONE Infusion Sodium Chloride 500 mls @ 500 mls/hr 07/30/24 00:04 07/30/24 01:27 Ns IV 07/30/24 01:03 Infused .Q1H ONE Infusion Metronidazole 500 mg in 100 mls @ 100 mls/hr 07/30/24 01:24 07/30/24 03:06 Flagyl IV 07/30/24 02:23 Infused ONCE ONE Infusion Morphine Sulfate 2 mg 07/29/24 23:44 07/30/24 00:09 Morphine Sulfate 2 Mg/Ml Cartridge IVPUSH 07/29/24 23:45 2 mg ONCE ONE Administration Protocol Ondansetron HCl 4 mg 07/29/24 23:44 07/30/24 00:09 Ondansetron Hcl 4 Mg/2 Ml Vial IVPUSH 07/29/24 23:45 4 mg ONCE ONE Administration Discharge Plan Discharge Clinical Impression: Acute UTI, Colitis Abdominal pain Qualifiers: Abdominal location: generalized Qualified Code(s): R10.84 - Generalized abdominal pain Nausea & vomiting Qualifiers: Vomiting type: unspecified Qualified Code(s): R11.2 - Nausea with vomiting, unspecified Patient Disposition: Admitted As Inpatient
[2024-07-29 21:15] LABS: MANUAL DIFF FLAG NO
[2024-07-29 21:20] LABS: Basophils Percent Auto 0.4 % (0-2); Eosinophils Absolute Auto 0.3 X10*3/uL (0.0-0.4); Eosinophils Percent Auto 3.4 % (0-4); Hematocrit 29.6 % (37.0-47.0); Hemoglobin 10.3 g/dl (12.0-16.0); Imm Gran Abs Auto 0.03 X10*3/uL (0.00-0.03); Imm Gran Pct Auto 0.3 % (0.0-0.4); Lymphocytes Absolute Auto 1.9 X10*3/uL (1.2-4.9); Lymphocytes Percent Auto 20.7 % (20-40); Mean Corpuscular HGB Conc 34.8 g/dl (31.0-35.0); Mean Corpuscular Volume 94.9 fL (80.0-98.0); Monocytes Absolute Auto 0.9 X10*3/uL (0.1-1.2); Monocytes Percent Auto 9.5 % (2-11); Neutrophils Absolute Auto 6.1 x10*3/uL (2.0-8.3); Neutrophils Percent Auto 65.7 % (45-73); Platelet Count 184 X10*3/uL (160-400); Red Blood Count 3.12 X10*6/uL (4.20-5.50); White Blood Count 9.2 X10*3/uL (4.8-10.8)
[2024-07-29 21:31] LABS: Alanine Aminotransferase 15 U/L (0-31); Alkaline Phosphatase 85 U/L (39-117); Anion Gap 14 (12-20); Aspartate Amino Transferase 19 U/L (5-31); Bilirubin Direct 0.1 mg/dL (0.0-0.5); Bilirubin Total 0.3 mg/dL (0.0-1.0); Blood Urea Nitrogen 39 mg/dL (9-16); Calcium 10.8 mg/dL (8.4-10.2); Carbon Dioxide 26 mmol/L (22-29); Chloride 103 mmol/L (96-108); Creatinine Clr Calc Pharmacy 30.1; Estimated Glomerular Filt Rate 42; Glucose Random 108 mg/dL (60-115); Lipase 26 U/L (8-78); Magnesium 1.8 mg/dL (1.6-2.6); Sodium 139 mmol/L (135-145); Total Protein 7.9 g/dL (6.5-8.0)
[2024-07-29 21:45] LABS: Appearance Urine Cloudy; Color Urine Yellow; Glucose Urine UA Negative (Negative); Leukocyte Esterase Urine Large (3+) (Negative); Nitrite Urine Negative (Negative); PH 5.5 (5.0-9.0); Specific Gravity - Urine 1.015 (1.005-1.025); UMIC TRIGGER UACC YES; Urine Blood Negative (Negative); Urine Ketones Negative (Negative); Urine Protein Negative (Neg-Trace)
[2024-07-29 21:55] VITALS: BP 124/55; PULSE 73; RESP 18; TEMP 36.8; O2SAT 99
[2024-07-29 21:59] LABS: Bacteria Urine 1+ (None Seen); RBC Urine 0-2 /HPF (0-2); UACC Culture Trigger YES; WBC Urine >50 /HPF (0-5)
[2024-07-29 23:14] VITALS: BP 126/58; PULSE 78; RESP 16; TEMP 36.7; O2SAT 96
[2024-07-29 23:25] VITALS: BP 121/56; PULSE 74; RESP 17; TEMP 36.8; O2SAT 97
--- NOTE | 2024-07-30 00:07 | ECG_ITS ---
Test Reason : ABD PAIN Blood Pressure : / mmHG Vent. Rate : 081 BPM Atrial Rate : 081 BPM P-R Int : 170 ms QRS Dur : 072 ms QT Int : 382 ms P-R-T Axes : 066 054 042 degrees QTc Int : 443 ms Normal sinus rhythm Normal ECG When compared with ECG of 01-MAY-2013 21:52, No significant change was found Referred By: Freida Hernandez Electronically Signed By:UMM TRACY
[2024-07-30] MEDS: cefTRIAXone sodium 1 GM in 0.9 % Sodium Chloride 50 ML IV ×2 (00:08→08:51)
[2024-07-30] MEDS: ondansetron HCL 4 MG/2 ML VIAL IVPUSH (00:09)
[2024-07-30] MEDS: Morphine Sulfate 2 MG/ML CARTRIDGE IVPUSH (00:09)
[2024-07-30] MEDS: 0.9 % Sodium Chloride 500 ML IV (00:13)
[2024-07-30 00:18] LABS: Lactic Acid 0.9 mmol/L (0.5-2.0)
[2024-07-30] MEDS: metroNIDAZOLE/NS 500 MG/100 ML PIGGYBACK 100 MG IV (01:45)
[2024-07-30] MEDS: 0.9 % Sodium Chloride 1,000 ML 80 ML IVCONT (01:48)
[2024-07-30] MEDS: Lactated Ringers 1,000 ML 80 ML IVCONT (03:50)
[2024-07-30] MEDS: Enoxaparin Sodium 40 MG/0.4 ML SYRINGE SUBCUT (03:50)
[2024-07-30 03:52] VITALS: BP 106/53; PULSE 77; RESP 16; TEMP 36.8; O2SAT 96
--- NOTE | 2024-07-30 04:02 | P.HPHOSP_ITS ---
History of Present Illness Date of Service: 07/30/24 Attending physician on admission: Naeem Bailey Chief Complaint: Abdominal pain Kalli Garcia is a 71 years old woman with past medical history significant for essential hypertension and hyperlipidemia presents to the emergency department complaining of generalized abdominal pain that started last Friday associated with nausea, dizziness and multiple events of nonbloody yellowish vomiting. She denied any associated diarrhea, fever or chills. Last bowel movement was Friday and was normal. She denied any headache, palpitations or loss of consciousness. Did not report any acute cardiopulmonary or urinary symptoms. Denied alcohol abuse, illicit drug use and tobacco smoking. Last colonoscopy came back unremarkable and she is scheduled to have another one in 2027. Past medical history significant for hysterectomy and tubal ligation. In the ED, she was found to have stable vital signs. Blood workup showed no leukocytosis. Hemoglobin is at baseline and platelets are normal. There are no electrolyte imbalances. BUN is 39 and creatinine 1.25. LFTs and lipase are normal. UA is consistent with UTI. Abdomen pelvis CT scan showed moderate segmental concentric mural thickening of the splenic flexure of the colon suspicious for ischemic colitis, moderate colonic diverticulosis without diverticulitis and no evidence of intestinal perforation or obstruction. ECG showed normal sinus rhythm without ischemic changes. ED tx: Morphine 2 mg IV, Zofran 4 mg IV, ceftriaxone 1 g IV, Flagyl 500 mg IV, NS 500 mL bolus. Review of Systems 2 Review of Systems: All 12 systems were reviewed and normal except as noted in HPI. [facility] Medical History Obesity 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 Allergic rhinitis Diverticular disease of colon Essential hypertension Hypercholesteremia Moderate persistent asthma Osteopenia Surgical History History of hysterectomy Social History Smoked in Last 30 Days: No Use of substances other than those prescribed or required for medical reasons: No Advance Directives: No Advance Directives Information Provided: Yes Do you have a plan to hurt others: No Plan Meds Allergies Allergy/AdvReac Type Severity Reaction Status Date / Time BIPHOSPHONATES Allergy Unknown Unknown Uncoded 07/29/24 20:41 Active Medications: Current Medications Acetaminophen (Acetaminophen 325 Mg Tablet) 975 mg PO Q6H PRN PRN Reason: Pain, Mild (Pain Scale 1-3), fever or headache Calcium Carbonate (Calcium Carbonate 750 Mg Tab.Chew) 750 mg PO Q4H PRN PRN Reason: Heartburn Enoxaparin Sodium (Enoxaparin Sodium 40 Mg/0.4 Ml Syringe) 40 mg SUBCUT Q24H [facility] Last Admin: 07/30/24 03:50 Dose: 40 mg Sodium Chloride (Ns) 1,000 mls @ 80 mls/hr IVCONT .[id number] [facility] Last Infusion: 07/30/24 03:47 Dose: Infused Lactated Ringer's (Lr) 1,000 mls @ 80 mls/hr IVCONT .[id number] [facility] Stop: 07/30/24 15:14 Last Admin: 07/30/24 03:50 Dose: 80 mls/hr Magnesium Hydroxide (Milk Of Magnesia 30 Ml Oral.Susp) 30 ml PO DAILY PRN PRN Reason: Constipation Melatonin (Melatonin 3 Mg Tablet) 6 mg PO BEDTIME PRN PRN Reason: Insomnia Ondansetron HCl (Ondansetron Hcl 4 Mg/2 Ml Vial) 4 mg IVPUSH Q8H PRN PRN Reason: Nausea and Vomiting Sodium Chloride (0.9 % Sodium Chloride Flush 3 Ml Syringe) 3 ml IVFLUSH QSHIFT [facility] Home Medications ?Medication ?Instructions ?Recorded ?Confirmed ?Last Taken ?Type albuterol sulfate 90 mcg/actuation inhalation 10/22/23 12/23/23 Unknown History aerosol inhaler amlodipine 5 mg tablet 5 mg PO DAILY 10/22/23 12/23/23 Unknown History calcium carbonate 600 mg-vitamin 1 tab PO BID 10/22/23 12/23/23 Unknown History D3 10 mcg (400 unit) tablet docusate sodium 100 mg capsule 100 mg PO QAM 10/22/23 12/23/23 Unknown History ergocalciferol (vitamin D2) 1,250 PO 10/22/23 12/23/23 Unknown History mcg (50,000 unit) capsule ferrous sulfate 325 mg (65 mg 325 mg PO DAILY 10/22/23 12/23/23 Unknown History iron) tablet (FeroSul) fluticasone 250 mcg-salmeterol 50 1 ea inhalation BID 10/22/23 12/23/23 Unknown History mcg/dose blistr powdr for inhalation lisinopril 20 1 tab PO DAILY 10/22/23 12/23/23 Unknown History mg-hydrochlorothiazide 25 mg tablet loratadine 10 mg tablet 10 mg PO DAILY 10/22/23 12/23/23 Unknown History rosuvastatin 20 mg tablet 20 mg PO BEDTIME 10/22/23 12/23/23 Unknown History naproxen 375 mg tablet 375 mg PO BID 03/16/24 Unknown History terazosin 1 mg capsule 1 mg PO DAILY 07/12/24 Unknown History Physical Exam 2 Vital Signs and Narrative: Vital Signs: Last Vital Signs Temp 98.3 F 07/30/24 03:52 Pulse 77 07/30/24 03:52 Resp 16 07/30/24 03:52 BP 106/53 L 07/30/24 03:52 Pulse Ox 96 07/30/24 03:52 O2 Del Method Room Air 07/30/24 03:52 BMI result Body Mass Index 33.7 Constitutional - Awake and Alert, No apparent distress. Cooperative. Pleasant. HEEENT - PERRL, EOMI. Dry oral mucosa. Heart - S1S2, RRR, No edema Lungs - Normal lung expansion, Normal respiratory effort, No respiratory distress, CTA bilaterally Abdomen - NT / ND; +BS; No rebound or guarding Extremities - no calf tenderness bilaterally, no swelling Musculoskeletal - Normal inspection, normal ROM Skin - Warm/Dry Neurological - Alert & oriented x3. No focal weakness grossly noted. Normal speech. Psychological - Appropriate affect Results Labs 07/29/24 21:09 07/29/24 21:09 Labs: Laboratory Results - last 24 hr 07/29/24 07/29/24 07/30/24 21:09 21:32 00:00 MCV 94.9 MCH 33.0 MCHC 34.8 RDW 13.0 Plt Count 184 MPV 10.0 Immature Gran % (Auto) 0.3 Neut % (Auto) 65.7 Lymph % (Auto) 20.7 [place] % (Auto) 9.5 Eos % (Auto) 3.4 Baso % (Auto) 0.4 Lymph # (Auto) 1.9 [place] # (Auto) 0.9 Eos # (Auto) 0.3 Baso # (Auto) 0.0 Abs Immat Gran (auto) 0.03 Absolute Neuts (auto) 6.1 Absolute Nucleated RBC 0.000 Nucleated RBC % (auto) 0.0 Anion Gap 14 Estim Creat Clear Calc 30.1 Estimated GFR 42 Random Glucose 108 Lactic Acid 0.9 Calcium 10.8 H D Magnesium 1.8 Total Bilirubin 0.3 Direct Bilirubin 0.1 AST 19 ALT 15 Alkaline Phosphatase 85 Total Protein 7.9 Albumin 4.0 Lipase 26 Urine Color Yellow Urine Appearance Cloudy Urine pH 5.5 Ur Specific [place] 1.015 Urine Protein Negative Urine Glucose (UA) Negative Urine Ketones Negative Urine Blood Negative Urine Nitrite Negative Ur Leukocyte Esterase Large (3+) H Urine RBC 0-2 Urine WBC >50 H Ur Squamous Epith Cells 6-10 Urine Bacteria 1+ Hyaline Casts 3-5 Imaging Radiologist's Impressions: Impressions Abdomen/Pelvis CT 07/29/24 21:26 IMPRESSION: *Moderate segmental concentric mural thickening of the splenic flexure of the colon. Findings are suspicious for ischemic colitis. Infectious colitis including C. difficile colitis could present with similar findings. No evidence of intestinal perforation. *Moderate colonic diverticulosis. *No urolithiasis. No hydronephrosis. Electronically signed by: Irvin Sheets MD 07/30/2024 01:04 AM EDT RP Assessment and Plan (1) Abdominal pain: Qualifiers: Abdominal location: generalized Qualified Code(s): R10.84 - Generalized abdominal pain Status: Acute (2) Acute UTI: Status: Acute Plan Kalli Garcia is a 71 y/o woman admitted with: * Abdominal pain, resolved. ? Ischemic colitis -per CT scan (no diarrhea, leukocytosis or bloody stools). Continue IV fluids. Advance diet as tolerated. GI consult. * UTI. Continue ceftriaxone. UC obtained -will follow results. * Essential hypertension. Continue lisinopril (hold HCTZ) and amlodipine if blood pressure allows. * Hyperlipidemia. Continue statin. * Chronic anemia. Continue to monitor. * Moderate persistent asthma; currently asymptomatic. Continue inhalers. DVT prophylaxis: Lovenox Code status: Full Patient will need hospitalization for at least 2 midnights for abdominal pain and concern for ischemic colitis treatment and management with IV fluids and IV pain meds. Quality Stroke Does the patient have a stroke diagnosis?: No VTE Prior VTE?: No VTE Risk Level:: Medical - moderate - high VTE Device Contraindication: N/A - Device Ordered VTE Drug Contraindication: N/A - Med Ordered
[2024-07-30 05:30] LABS: MANUAL DIFF FLAG NO
[2024-07-30 05:31] VITALS: BP 104/47; PULSE 74; RESP 16; TEMP 36.8; O2SAT 96
[2024-07-30 05:31] LABS: Basophils Percent Auto 0.4 % (0-2); Eosinophils Absolute Auto 0.3 X10*3/uL (0.0-0.4); Eosinophils Percent Auto 3.8 % (0-4); Hematocrit 24.9 % (37.0-47.0); Hemoglobin 8.3 g/dl (12.0-16.0); Imm Gran Abs Auto 0.02 X10*3/uL (0.00-0.03); Imm Gran Pct Auto 0.3 % (0.0-0.4); Lymphocytes Absolute Auto 2.3 X10*3/uL (1.2-4.9); Lymphocytes Percent Auto 30.9 % (20-40); Mean Corpuscular HGB Conc 33.3 g/dl (31.0-35.0); Mean Corpuscular Hemoglobin 32.4 pg (27.0-33.0); Mean Corpuscular Volume 97.3 fL (80.0-98.0); Monocytes Absolute Auto 0.7 X10*3/uL (0.1-1.2); Monocytes Percent Auto 9.7 % (2-11); Neutrophils Absolute Auto 4.2 x10*3/uL (2.0-8.3); Neutrophils Percent Auto 54.9 % (45-73); Platelet Count 129 X10*3/uL (160-400); Red Blood Count 2.56 X10*6/uL (4.20-5.50); Red Cell Distribution Width 13.2 % (11.0-16.0); White Blood Count 7.6 X10*3/uL (4.8-10.8)
[2024-07-30 05:46] LABS: Anion Gap 12 (12-20); Blood Urea Nitrogen 29 mg/dL (9-16); Calcium 8.9 mg/dL (8.4-10.2); Carbon Dioxide 23 mmol/L (22-29); Chloride 109 mmol/L (96-108); Creatinine Clr Calc Pharmacy 44.7; Estimated Glomerular Filt Rate > 60; Glucose Random 83 mg/dL (60-115); Potassium 4.1 mmol/L (3.3-5.1); Sodium 140 mmol/L (135-145)
[2024-07-30 08:36] VITALS: BMI 33.8
--- NOTE | 2024-07-30 09:23 | PHA.MEDREC ---
Pharmacy Consult ? Medication Reconciliation Pharmacy has completed the medication reconciliation. Spoke with pt at bedside to confirm medications. Pt provided list. Pt last took medication on 07/30, Last took Vit D2 07/27, she takes this medication the first of every month. Pt states she i sno longer on terazosin and last took this one month ago.
--- NOTE | 2024-07-30 09:36 | MHC.CM.PN ---
PT LIVES WITH HAD NO PREVIOUS SERVICES HAS OWN RIDE HOME DC PLAN HOME NO SERVICES
[2024-07-30 09:37] VITALS: BP 128/60; PULSE 71; RESP 18; TEMP 36.1; O2SAT 99
--- NOTE | 2024-07-30 09:41 | P.CNGI_ITS ---
History of Present Illness Data of Consult Service Date: 07/30/24 Primary Care Provider: GAYATHRI Kessler HPI Reason for consult: abdominal pain 74 years old woman with hx of essential hypertension and hyperlipidemia who I am seeing for assessment for abdominal pain Patient had 2 d hx of severe generalized crampy abdominal pain 08/05 wihout any exacerbating or relieving factors and associated with nausea, dizziness and nonbloody yellowish vomiting. Denied any associated diarrhea, fever or chills and no melena or rectal bleeding. Last bowle motion was few days ago and was brown. Denies taking nsaids, and no sick contacts or ingestion of any poorly prepared foods. Last colo with Dr Andrews 2018, no masses seen. Today she feels fine and her pain is gone, no further nausea and no diarrhea or vomiting. Labs with normocytic anemia, with baseline hgb normally around 10-11 g.dl. BUN is 39 and creatinine 1.25. LFTs and lipase are normal. UA is consistent with UTI Imaging: Concentric mural thickening of the splenic flexure of the colon suspicious for ischemic or infectious colitis Review of Systems 2 Review of Systems: Constitutional : No Weight loss, No Fever, No Chills ENT/Mouth : No sore throat, No Rhinorrhea Eyes: No Swelling, No Redness Cardiovascular : No Chest Pain, No SOB, No Edema Respiratory : No Cough, No Sputum, No Wheezing Gastrointestinal : see HPI Genitourinary : NO Dysuria, No Urinary Frequency, No Hematuria, No Urgency Musculoskeletal : + joint pain, No Myalgias, No Joint Swelling Skin : No Skin Lesions, No rash Neuro : No Weakness, No Numbness, No Dizziness, No Headache Psych : No Anxiety/Panic, No Depression Heme/Lymph: No Bruising, No Lymphadenopathy Endocrine : No Polyuria, No Polydipsia All other systems reviewed and are negative. 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 Allergic rhinitis Diverticular disease of colon Essential hypertension Hypercholesteremia Moderate persistent asthma Osteopenia Family History Pertinent family history: no fh of crc Surgical History Surgical History History of hysterectomy Social History Social History Household Members: Spouse Housing: Condominium Do you presently have visiting nurse or other home services: No Patient Tobacco Use Status: Never used Tobacco service: No Meds Allergies Allergy/AdvReac Type Severity Reaction Status Date / Time BIPHOSPHONATES Allergy Unknown Unknown Uncoded 07/29/24 20:41 Active Medications: Current Medications Acetaminophen (Acetaminophen 325 Mg Tablet) 975 mg PO Q6H PRN PRN Reason: Pain, Mild (Pain Scale 1-3), fever or headache Calcium Carbonate (Calcium Carbonate 750 Mg Tab.Chew) 750 mg PO Q4H PRN PRN Reason: Heartburn Enoxaparin Sodium (Enoxaparin Sodium 40 Mg/0.4 Ml Syringe) 40 mg SUBCUT Q24H [facility] Last Admin: 07/30/24 03:50 Dose: 40 mg Lactated Ringer's (Lr) 1,000 mls @ 80 mls/hr IVCONT .[id number] [facility] Stop: 07/30/24 15:14 Last Admin: 07/30/24 03:50 Dose: 80 mls/hr Ceftriaxone Sodium 1 gm/ (Sodium Chloride) 50 mls @ 100 mls/hr IV Q24H [facility] Last Admin: 07/30/24 08:51 Dose: 100 mls/hr Magnesium Hydroxide (Milk Of Magnesia 30 Ml Oral.Susp) 30 ml PO DAILY PRN PRN Reason: Constipation Melatonin (Melatonin 3 Mg Tablet) 6 mg PO BEDTIME PRN PRN Reason: Insomnia Morphine Sulfate (Morphine Sulfate 2 Mg/Ml Cartridge) 2 mg IVPUSH Q4H PRN; Protocol PRN Reason: Pain, Severe (Pain Scale 7-10) Ondansetron HCl (Ondansetron Hcl 4 Mg/2 Ml Vial) 4 mg IVPUSH Q8H PRN PRN Reason: Nausea and Vomiting Sodium Chloride (0.9 % Sodium Chloride Flush 3 Ml Syringe) 3 ml IVFLUSH QSHIFT [facility] Last Admin: 07/30/24 08:01 Dose: Not Given Home Medications ?Medication ?Instructions ?Recorded ?Confirmed ?Last Taken ?Type albuterol sulfate 90 mcg/actuation 2 puff inhalation QID PRN 10/22/23 07/30/24 07/29/24 History aerosol inhaler Shortness Of Breath Or Wheezing amlodipine 5 mg tablet 5 mg PO DAILY 10/22/23 07/30/24 07/29/24 History calcium carbonate 600 mg-vitamin 1 tab PO BID 10/22/23 07/30/24 07/29/24 History D3 10 mcg (400 unit) tablet docusate sodium 100 mg capsule 100 mg PO DAILY 10/22/23 07/30/24 07/29/24 History ergocalciferol (vitamin D2) 1,250 50,000 unit PO Q30D 10/22/23 07/30/24 07/27/24 History mcg (50,000 unit) capsule ferrous sulfate 325 mg (65 mg 325 mg PO DAILY 10/22/23 07/30/24 07/29/24 History iron) tablet (FeroSul) fluticasone 250 mcg-salmeterol 50 1 ea inhalation BID 10/22/23 07/30/24 07/29/24 History mcg/dose blistr powdr for inhalation lisinopril 20 1 tab PO DAILY 10/22/23 07/30/24 07/29/24 History mg-hydrochlorothiazide 25 mg tablet loratadine 10 mg tablet 10 mg PO DAILY 10/22/23 07/30/24 07/29/24 History rosuvastatin 20 mg tablet 20 mg PO BEDTIME 10/22/23 07/30/24 07/29/24 History naproxen 375 mg tablet 375 mg PO BID 03/16/24 07/30/24 07/29/24 History peg 400-propylene glycol 0.4 %-0.3 1 drp ophthalmic (eye) DAILY 07/30/24 07/30/24 Unknown History % eye drops (Systane (propylene glycol)) polyethylene glycol 3350 17 17 g PO DAILY 07/30/24 07/30/24 07/29/24 History gram/dose oral powder Physical Exam 2 Vital Signs: Vital Signs: Last Vital Signs Temp 97.0 F 07/30/24 09:37 Pulse 71 07/30/24 09:37 Resp 18 07/30/24 09:37 BP 128/60 07/30/24 09:37 Pulse Ox 99 07/30/24 09:37 O2 Del Method Room Air 07/30/24 09:37 BMI result Body Mass Index 33.8 EXAM: GENERAL: The patient is well developed and nontoxic. VITAL SIGNS:see workflow HEENT: Nonicteric sclerae, PERRLA, EOMI. Oropharynx clear. Moist mucous membranes. Conjunctivae appear well perfused. No thyroid mass. CHEST: Chest wall is nontender. HEART: Regular rate and rhythm without murmurs. LUNGS: Clear to auscultation bilaterally. ABDOMEN: Soft, positive bowel sounds, nontender, no organomegaly.no flank tenderness SKIN: No rash, no excessive bruising, petechiae, or purpura. NEUROLOGIC: Cranial nerves II-XII intact without motor/sensory deficit. Psych: normal affect Results Labs 07/31/24 07:47 07/30/24 05:23 Labs: Short CBC 07/29/24 07/30/24 Range/Units 21:09 05:23 WBC 9.2 7.6 (4.8-10.8) X10*3/uL Hgb 10.3 L 8.3 L (12.0-16.0) g/dl Hct 29.6 L 24.9 L (37.0-47.0) % Plt Count 184 129 L D (160-400) X10*3/uL BMP 07/29/24 07/30/24 21:09 05:23 Sodium 139 140 Potassium 4.0 4.1 Chloride 103 109 H Carbon Dioxide 26 23 BUN 39 H 29 H Creatinine 1.25 0.84 Calcium 10.8 H D 8.9 D Liver Function 07/29/24 Range/Units 21:09 Total Bilirubin 0.3 (0.0-1.0) mg/dL Direct Bilirubin 0.1 (0.0-0.5) mg/dL AST 19 (5-31) U/L ALT 15 (0-31) U/L Alkaline Phosphatase 85 (39-117) U/L Albumin 4.0 (3.5-5.0) g/dL Urine 07/29/24 Range/Units 21:32 Urine Color Yellow Urine Appearance Cloudy Urine pH 5.5 (5.0-9.0) Ur Specific [place] 1.015 (1.005-1.025) Urine Protein Negative (Neg-Trace) mg/dL Urine Glucose (UA) Negative (Negative) mg/dL Imaging CT scan - abdomen: Attestation: I personally reviewed and interpreted this imaging study as follows: (mild stranding and thickening around splenic flexure) Assessment and Plan (1) Colitis: Status: Acute Plan 1/ Abdominal pain with abn imaging and rapid improvement in sx, suspect infectious etiology 2/ chronic anemia with normal hematinics, on iron supplement --no overt GI bleeding PLAN: 1/ If stable hgb then early o/p egd and colonoscopy, to further elucidate etiology of anemia and also r/o any underlying mass lesion 2/ If HGb drops then in patient testing Note: Repeat Hgb was 9.5 g/dl closer to her baseline Procedures Date of Service Date of Service: 07/31/24
[2024-07-30 10:41] LABS: Unsaturated Iron Binding 113 ug/dL
[2024-07-30 11:02] LABS: Ferritin 36 ng/mL (10-250)
[2024-07-30 11:29] LABS: Iron 32 mcg/dL (30-160); Percent Iron Saturation 22 % (15-50); Total Iron Binding Capacity 145 mcg/dL (228-428)
[2024-07-30 13:06] LABS: Folate 12.4 ng/mL (> or = 4.0); Vitamin B12 439 pg/mL (200-900)
--- NOTE | 2024-07-30 15:00 | P.PNIM_ITS ---
Subjective Subjective Date of Service: 07/30/24 Interval History: Seen and examined this morning Follow-up for abdominal pain History obtained with the assistance of a motor vehicle parts interpreter Patient reports that her abdominal pain has resolved. She denies any nausea or vomiting at this time. She denies diarrhea Review of Systems Review of Systems: Yes all other systems are reviewed and are negative Constitutional Constitutional: Denies chills and Denies fever(s) Physical Exam 2 Vital Signs: Vital Signs: Last Vital Signs Temp 97.0 F 07/30/24 09:37 Pulse 71 07/30/24 09:37 Resp 18 07/30/24 09:37 BP 128/60 07/30/24 09:37 Pulse Ox 99 07/30/24 09:37 O2 Del Method Room Air 07/30/24 09:37 BMI result Body Mass Index 33.8 Const: Orientation/consciousness: patient oriented x3 HEENT: Head: Yes normocephalic and Yes atraumatic Resp: Effort & Inspection: normal respiratory effort and no respiratory distress Cardio: Rate: regular rate Rhythm: regular rhythm GI: Palpation (GI): Soft to palpation and nontender Neuro: General: patient oriented x3 Objective Data Active Medications Acetaminophen (Acetaminophen 325 Mg Tablet) 975 mg PO Q6H PRN PRN Reason: Pain, Mild (Pain Scale 1-3), fever or headache Albuterol Sulfate (Albuterol Sulfate 90 Mcg 8 Gm Inhaler) 2 puff INHALE QID PRN PRN Reason: Shortness Of Breath Or Wheezing Artificial Tears (Artificial Tears 15 Ml Drops) 1 drop EYE-BOTH DAILY [facility] Atorvastatin Calcium (Atorvastatin Calcium 80 Mg Tablet) 80 mg PO BEDTIME [facility] Calcium Carbonate (Calcium Carbonate 750 Mg Tab.Chew) 750 mg PO Q4H PRN PRN Reason: Heartburn Enoxaparin Sodium (Enoxaparin Sodium 40 Mg/0.4 Ml Syringe) 40 mg SUBCUT Q24H [facility] Last Admin: 07/30/24 03:50 Dose: 40 mg Documented By: LIA Ferrous Sulfate (Ferrous Sulfate 324 Mg Tablet.Dr) 324 mg PO DAILY [facility] Fluticasone/Vilanterol (Fluticasone/Vilanterol 100/25 Blst.W.Dev) 1 puff INHALE RDAILY [facility] Last Admin: 07/30/24 12:40 Dose: Not Given Documented By: RUBY Non-Admin Reason: Patient Refused Lactated Ringer's (Lr) 1,000 mls @ 80 mls/hr IVCONT .[id number] [facility] Stop: 07/30/24 15:14 Last Admin: 07/30/24 03:50 Dose: 80 mls/hr Documented By: LIA Ceftriaxone Sodium 1 gm/ (Sodium Chloride) 50 mls @ 100 mls/hr IV Q24H [facility] Last Infusion: 07/30/24 09:53 Dose: Infused Documented By: RUBY Loratadine (Loratadine 10 Mg Tablet) 10 mg PO DAILY [facility] Magnesium Hydroxide (Milk Of Magnesia 30 Ml Oral.Susp) 30 ml PO DAILY PRN PRN Reason: Constipation Melatonin (Melatonin 3 Mg Tablet) 6 mg PO BEDTIME PRN PRN Reason: Insomnia Morphine Sulfate (Morphine Sulfate 2 Mg/Ml Cartridge) 2 mg IVPUSH Q4H PRN; Protocol PRN Reason: Pain, Severe (Pain Scale 7-10) Ondansetron HCl (Ondansetron Hcl 4 Mg/2 Ml Vial) 4 mg IVPUSH Q8H PRN PRN Reason: Nausea and Vomiting Polyethylene Glycol (Polyethylene Glycol 3350 17 Gm Powd.Pack) 17 gm PO DAILY [facility] Sodium Chloride (0.9 % Sodium Chloride Flush 3 Ml Syringe) 3 ml IVFLUSH QSHIFT [facility] Last Admin: 07/30/24 08:01 Dose: Not Given Documented By: DAMION Non-Admin Reason: IV Running Labs 07/30/24 05:23 07/30/24 05:23 Labs: Laboratory Results - last 24 hr 07/29/24 07/29/24 07/30/24 21:09 21:32 00:00 MCV 94.9 MCH 33.0 MCHC 34.8 RDW 13.0 Plt Count 184 MPV 10.0 Immature Gran % (Auto) 0.3 Neut % (Auto) 65.7 Lymph % (Auto) 20.7 [place] % (Auto) 9.5 Eos % (Auto) 3.4 Baso % (Auto) 0.4 Lymph # (Auto) 1.9 [place] # (Auto) 0.9 Eos # (Auto) 0.3 Baso # (Auto) 0.0 Abs Immat Gran (auto) 0.03 Absolute Neuts (auto) 6.1 Absolute Nucleated RBC 0.000 Nucleated RBC % (auto) 0.0 Anion Gap 14 Estim Creat Clear Calc 30.1 Estimated GFR 42 Random Glucose 108 Lactic Acid 0.9 Calcium 10.8 H D Magnesium 1.8 Iron TIBC % Saturation Unsat Iron Binding Ferritin Total Bilirubin 0.3 Direct Bilirubin 0.1 AST 19 ALT 15 Alkaline Phosphatase 85 Total Protein 7.9 Albumin 4.0 Lipase 26 Vitamin B12 Folate Urine Color Yellow Urine Appearance Cloudy Urine pH 5.5 Ur Specific [place] 1.015 Urine Protein Negative Urine Glucose (UA) Negative Urine Ketones Negative Urine Blood Negative Urine Nitrite Negative Ur Leukocyte Esterase Large (3+) H Urine RBC 0-2 Urine WBC >50 H Ur Squamous Epith Cells 6-10 Urine Bacteria 1+ Hyaline Casts 3-5 07/30/24 07/30/24 05:23 10:55 MCV 97.3 MCH 32.4 MCHC 33.3 RDW 13.2 Plt Count 129 L D MPV 10.0 Immature Gran % (Auto) 0.3 Neut % (Auto) 54.9 Lymph % (Auto) 30.9 [place] % (Auto) 9.7 Eos % (Auto) 3.8 Baso % (Auto) 0.4 Lymph # (Auto) 2.3 [place] # (Auto) 0.7 Eos # (Auto) 0.3 Baso # (Auto) 0.0 Abs Immat Gran (auto) 0.02 Absolute Neuts (auto) 4.2 Absolute Nucleated RBC 0.000 Nucleated RBC % (auto) 0.0 Anion Gap 12 Estim Creat Clear Calc 44.7 Estimated GFR > 60 Random Glucose 83 Lactic Acid Calcium 8.9 D Magnesium Iron 32 TIBC 145 L % Saturation 22 Unsat Iron Binding 113 Ferritin 36 Total Bilirubin Direct Bilirubin AST ALT Alkaline Phosphatase Total Protein Albumin Lipase Vitamin B12 439 Folate 12.4 Urine Color Urine Appearance Urine pH Ur Specific [place] Urine Protein Urine Glucose (UA) Urine Ketones Urine Blood Urine Nitrite Ur Leukocyte Esterase Urine RBC Urine WBC Ur Squamous Epith Cells Urine Bacteria Hyaline Casts Microbiology Microbiology Results: Microbiology 07/29/24 21:32 Urine Culture - Preliminary Urine clean catch - Clean Catch Midstream No growth to date. Assessment and Plan (1) Abdominal pain: Status: Acute Plan Kalli Garcia is a 71 y/o woman admitted with: Abdominal pain resolved. Imaging concerning for ischemic versus infectious colitis however patient has no diarrhea or leukocytosis No indication for antibiotics at this time Seen by GI, no indication for inpatient scope unless H&H continues to drop as below We will advance diet Acute on chronic anemia No evidence of acute blood loss We will check iron studies, B12, folic acid Repeat CBC in a.m. If continues to trend down plan for colonoscopy and endoscopy on Friday UTI. Urine culture negative, we will stop antibiotics Essential hypertension. Continue lisinopril (hold HCTZ) and amlodipine if blood pressure allows. Hyperlipidemia. Continue statin. Moderate persistent asthma currently asymptomatic. Continue inhalers. DVT prophylaxis: Lovenox Code status: Full Patient will need hospitalization for at least 2 midnights for abdominal pain and concern for ischemic colitis treatment and management with IV fluids and IV pain meds. Quality Stroke Does the patient have a stroke diagnosis?: No VTE Prior VTE?: No VTE Risk Level:: Medical - moderate - high VTE Device Contraindication: N/A - Device Ordered VTE Drug Contraindication: N/A - Med Ordered
[2024-07-30 16:10] VITALS: BP 116/56; PULSE 67; RESP 12; TEMP 36.1; O2SAT 97
[2024-07-30 19:09] VITALS: BP 121/60; PULSE 65; RESP 18; TEMP 37.1; O2SAT 98
[2024-07-30] MEDS: Atorvastatin Calcium 80 MG TABLET PO (20:03)
[2024-07-30] MEDS: 0.9 % Sodium Chloride Flush 3 ML SYRINGE IVFLUSH (20:03)
[2024-07-31] MEDS: Enoxaparin Sodium 40 MG/0.4 ML SYRINGE SUBCUT (02:43)
[2024-07-31 03:29] VITALS: BP 132/61; PULSE 78; RESP 18; TEMP 36.7; O2SAT 96
[2024-07-31 07:36] VITALS: BP 144/66; PULSE 71; RESP 16; TEMP 36.5; O2SAT 97
[2024-07-31] MEDS: Fluticasone/Vilanterol 100/25 BLST.W.DEV 1 PUFF INHALE (07:42)
[2024-07-31 07:44] VITALS: PULSE 67; RESP 18; O2SAT 93
[2024-07-31 08:01] LABS: Hematocrit 27.6 % (37.0-47.0); Hemoglobin 9.5 g/dl (12.0-16.0); Mean Corpuscular HGB Conc 34.4 g/dl (31.0-35.0); Mean Corpuscular Volume 95.8 fL (80.0-98.0); Mean Platelet Volume 10.2 fL (9.4-12.3); Platelet Count 160 X10*3/uL (160-400); Red Blood Count 2.88 X10*6/uL (4.20-5.50); Red Cell Distribution Width 12.8 % (11.0-16.0); White Blood Count 4.9 X10*3/uL (4.8-10.8)
[2024-07-31] MEDS: polyethylene glycoL 3350 17 GM POWD.PACK PO (09:10)
[2024-07-31] MEDS: 0.9 % Sodium Chloride Flush 3 ML SYRINGE IVFLUSH (09:10)
[2024-07-31] MEDS: Ferrous Sulfate 324 MG TABLET.DR PO (09:10)
[2024-07-31] MEDS: Artificial Tears 15 ML DROPS 1 DROP EYE-BOTH (09:10)
[2024-07-31] MEDS: Loratadine 10 MG TABLET PO (09:10)
--- NOTE | 2024-07-31 09:58 | P.DS_ITS ---
DS: Providers Provider Date of Service: 07/31/24 Date of admission: 07/30/24 03:08 Date of discharge: 07/31/24 Primary care physician: GAYATHRI Kessler Consults: 07/30/24 04:10 Consult to Gastroenterology Routine Consulting Provider: Vanesa Zeng Reason for consultation: Abdominal pain, CT scan showing ischemic colitis Has provider been notified: No Attending physician on discharge: Kailee Beltrán Discharging clinician: Kita Gary DS: Diagnosis Discharge Diagnosis (1) Abdominal pain: Status: Acute DS: Summary Hospital Course Hospital Course: From H&P on the day of admission Kalli Garcia is a 71 years old woman with past medical history significant for essential hypertension and hyperlipidemia presents to the emergency department complaining of generalized abdominal pain that started last Friday associated with nausea, dizziness and multiple events of nonbloody yellowish vomiting. She denied any associated diarrhea, fever or chills. Last bowel movement was Friday and was normal. She denied any headache, palpitations or loss of consciousness. Did not report any acute cardiopulmonary or urinary symptoms. Denied alcohol abuse, illicit drug use and tobacco smoking. Last colonoscopy came back unremarkable and she is scheduled to have another one in 2027. Past medical history significant for hysterectomy and tubal ligation. In the ED, she was found to have stable vital signs. Blood workup showed no leukocytosis. Hemoglobin is at baseline and platelets are normal. There are no electrolyte imbalances. BUN is 39 and creatinine 1.25. LFTs and lipase are normal. UA is consistent with UTI. Abdomen pelvis CT scan showed moderate segmental concentric mural thickening of the splenic flexure of the colon suspicious for ischemic colitis, moderate colonic diverticulosis without diverticulitis and no evidence of intestinal perforation or obstruction. ECG sh owed normal sinus rhythm without ischemic changes. ED tx: Morphine 2 mg IV, Zofran 4 mg IV, ceftriaxone 1 g IV, Flagyl 500 mg IV, NS 500 mL bolus. Abdominal pain resolved. Imaging concerning for ischemic versus infectious colitis however patient has no diarrhea or leukocytosis and no recurrance of abdominal pain. No indication for antibiotics at this time Seen by GI, no indication for inpatient scope unless H&H continues to drop. Able to tolerate advancement diet. No nausea, vomiting. Plan for outpatient endoscopy and colonoscopy due to below anemia. Blood cultures have remained negative to date. Acute on chronic anemia No evidence of acute blood loss. B12, folic acid within normal limits. Iron 32. continue oral iron supplementation. Outpatient colonoscopy/endoscopy as above UTI. Urine culture negative, no indication for antibiotics Time Attestation Discharge Coordination Time (in mins): 35 Quality: Safe Use of Opioids Does Pt have an Active Cancer Diagnosis on the Problem List?: No Quality: Stroke Does the patient have a stroke diagnosis?: No Physical Exam Vital Signs: Vital Signs: Last Vital Signs Temp 97.7 F 07/31/24 07:36 Pulse 67 07/31/24 07:44 Resp 18 07/31/24 07:44 BP 144/66 H 07/31/24 07:36 Pulse Ox 97 07/31/24 07:36 O2 Del Method Room Air 07/31/24 07:36 BMI result Body Mass Index 33.8 Const: Orientation/consciousness: patient oriented x3 HEENT: Head: Yes normocephalic and Yes atraumatic Resp: Effort & Inspection: normal respiratory effort and no respiratory distress Cardio: Rate: regular rate Rhythm: regular rhythm GI: Palpation (GI): Soft to palpation and nontender Neuro: General: patient oriented x3 DS: Data Data Completed and Pending Labs on day of discharge: Laboratory Results - last 24 hr 07/30/24 07/30/24 07/31/24 05:23 10:55 07:47 WBC 4.9 RBC 2.88 L Hgb 9.5 L Hct 27.6 L MCV 95.8 MCH 33.0 MCHC 34.4 RDW 12.8 Plt Count 160 MPV 10.2 Absolute Nucleated RBC 0.000 Nucleated RBC % (auto) 0.0 Iron 32 TIBC 145 L % Saturation 22 Unsat Iron Binding 113 Ferritin 36 Vitamin B12 439 Folate 12.4 Preliminary micro results at discharge 07/30/24 00:01 Blood Culture - Preliminary Blood - Venous No growth after 24 hours. 07/30/24 00:00 Blood Culture - Preliminary Blood - Venous No growth after 24 hours. 07/29/24 21:32 Urine Culture - Preliminary Urine clean catch - Clean Catch Midstream No growth to date. Discharge Plan Discharge Anticipated Discharge Date/Time: 07/31/24 10:47 Patient Disposition: Home, Self-Care Discharge Diagnosis: Abdominal pain Anemia Referrals: Mirella Sarkar, LOSS PREVENTION/SAFETY DISTRICT MANAGER [Primary Care Provider] - 1 Week Discharge Medications: Continued Systane (propylene glycol) 0.4-0.3 % Drops 1 drp OPHTHALMIC (EYE) DAILY polyethylene glycol 3350 17 gram/dose powder 17 g PO DAILY ferrous sulfate [FeroSul] 325 mg (65 mg iron) tablet 325 mg PO DAILY albuterol sulfate 90 mcg/actuation HFA aerosol inhaler 2 puff inhalation QID PRN (Reason: Shortness Of Breath Or Wheezing) rosuvastatin 20 mg tablet 20 mg PO BEDTIME amlodipine 5 mg tablet 5 mg PO DAILY ergocalciferol (vitamin D2) 1,250 mcg (50,000 unit) capsule 50,000 unit PO Q30D fluticasone propion-salmeterol 250-50 mcg/dose blister with device 1 ea inhalation BID loratadine 10 mg tablet 10 mg PO DAILY docusate sodium 100 mg capsule 100 mg PO DAILY calcium carbonate-vitamin D3 600 mg-10 mcg (400 unit) tablet 1 tab PO BID naproxen 375 mg tablet 375 mg PO BID Held lisinopril-hydrochlorothiazide 20-25 mg tablet 1 tab PO DAILY Hold Instructions: hold until follow up with PCP Discharge Orders: Discharge Order (Routine); Ordered 07/31/24 Ordered By: Kita Gary Activity on Discharge: As tolerated Stand Alone Forms: Patient Portal Discharge page Print Language: Kinyarwanda Care Plan Goals: see below Health Concerns: abdominal pain -resolved Normocytic anemia Plan of Treatment: Plan for outpatient endoscopy/colonoscopy Call to schedule follow-up appointment with your PCP - blood pressure has been lower, hold lisinopril/HCTZ until follow up Assessment: see discharge summary
--- NOTE | 2024-07-31 10:26 | MHC.CM.PN ---
IMM 07/30/24 GI consult recommends Out patient work up as H/H has improved. Anticipate discharge to home today. DP home self care. Out patient follow up. Patient has a ride home.
== END 2024-07-31 13:01 | disposition home or self-care (01) | DRG 394 ==
LOC: HO.ED 07-30 01:53 → HO.EDOVER 07-30 03:12 → HO.S3 07-30 07:19
PROVIDERS: Physician Assistant; Admitting Provider Internal Medicine; Emergency Provider Emergency Medicine; PCP Registered Nurse; Visit Provider Physician Assistant Medical
DX: K55.9 Vascular disorder of intestine, unspecified (principal); N39.0 Urinary tract infection, site not specified; J45.40 Moderate persistent asthma, uncomplicated; D64.9 Anemia, unspecified; I10 Essential (primary) hypertension; E78.5 Hyperlipidemia, unspecified; K57.30 Diverticulosis of large intestine without perforation or abscess without bleeding; Z79.51 Long term (current) use of inhaled steroids; Z79.899 Other long term (current) drug therapy
CPT/HCPCS: 36415; 74176; 80048; 80076; 81001; 82607; 82728; 82746; 83540; 83605; 83690; 83735; 85025; 85027; 87040; 87086; 93005; 99221; 99285; J0696; J1650; J1836; J2270; J2405; J7120

== ENCOUNTER → 2024-07-30 03:08 | Outpatient (BNV) | payer OTHER, SELFPAY | PROVIDERS: Admitting Provider Internal Medicine; Emergency Provider Emergency Medicine; PCP Registered Nurse; Visit Provider Internal Medicine Gastroenterology | DX: K52.9 Noninfective gastroenteritis and colitis, unspecified (principal) | CPT/HCPCS: 99223 ==

== ENCOUNTER → 2024-07-30 03:08 | Outpatient (BNV) | payer OTHER, SELFPAY | PROVIDERS: Admitting Provider Internal Medicine; Emergency Provider Emergency Medicine; PCP Registered Nurse; Visit Provider Internal Medicine | DX: R10.84 Generalized abdominal pain (principal) | CPT/HCPCS: 99223; 99239; 99499 ==

== ENCOUNTER 2024-08-05 08:45 | Day surgery (SDC) | payer OTHER, SELFPAY ==
[2024-08-05 10:06] VITALS: BP 152/86; PULSE 73; RESP 20; TEMP 36.4; O2SAT 97; BMI 35.4
[2024-08-05] MEDS: Lactated Ringers 1,000 ML 80 ML IVCONT (10:34)
--- NOTE | 2024-08-05 10:54 | P.CONAN_ITS ---
HPI - Anesthesia Eval Consult details Narrative: for upper and colon screen PMF Active Problems Active Problems: All Active Problems Nausea & vomiting (Acute) Colitis (Acute) Acute UTI (Acute) Abdominal pain (Acute) Cystocele with prolapse (Acute) Renal cyst (Acute) Incomplete bladder emptying (Acute) Urinary frequency (Acute) Urinary tract infection (Acute) Microscopic hematuria (Acute) Nocturia (Acute) Past Medical History Medical History Obesity 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 Allergic rhinitis Diverticular disease of colon Essential hypertension Hypercholesteremia Moderate persistent asthma Osteopenia Family History Family history of problems with anesthesia: No Surgical History Surgical History Hx of esophagogastroduodenoscopy Hx of colonoscopy History of hysterectomy History of Problems with Anesthesia: No Social History Social History Household Members: Spouse [facility] Do you presently have visiting nurse or other home services: No Patient Tobacco Use Status: Never used Tobacco Have you been hit, kicked, punched, or otherwise hurt by someone within the past year? If so, by whom?: No Are you DNR?: No Advance Directives: No Advance Directives Information Provided: Yes Nutrition Risks: No Nutritional Risk service: No Meds Allergies Allergy/AdvReac Type Severity Reaction Status Date / Time BIPHOSPHONATES Allergy Unknown Unknown Uncoded 07/29/24 20:41 Active Medications: Current Medications Lactated Ringer's (Lr) 1,000 mls @ 80 mls/hr IVCONT .[id number] [facility] Last Admin: 08/05/24 10:34 Dose: 80 mls/hr Home Medications ?Medication ?Instructions ?Recorded ?Confirmed ?Last Taken ?Type albuterol sulfate 90 mcg/actuation 2 puff inhalation QID PRN 10/22/23 08/05/24 07/29/24 History aerosol inhaler Shortness Of Breath Or Wheezing amlodipine 5 mg tablet 5 mg PO DAILY 10/22/23 08/05/24 07/29/24 History calcium carbonate 600 mg-vitamin 1 tab PO BID 10/22/23 08/05/24 07/29/24 History D3 10 mcg (400 unit) tablet docusate sodium 100 mg capsule 100 mg PO DAILY 10/22/23 08/05/24 07/29/24 History ergocalciferol (vitamin D2) 1,250 50,000 unit PO Q30D 10/22/23 08/05/24 07/27/24 History mcg (50,000 unit) capsule ferrous sulfate 325 mg (65 mg 325 mg PO DAILY 10/22/23 08/05/24 07/29/24 History iron) tablet (FeroSul) fluticasone 250 mcg-salmeterol 50 1 ea inhalation BID 10/22/23 08/05/24 07/29/24 History mcg/dose blistr powdr for inhalation lisinopril 20 1 tab PO DAILY 10/22/23 08/05/24 07/29/24 History mg-hydrochlorothiazide 25 mg tablet loratadine 10 mg tablet 10 mg PO DAILY 10/22/23 08/05/24 07/29/24 History rosuvastatin 20 mg tablet 20 mg PO BEDTIME 10/22/23 08/05/24 07/29/24 History peg 400-propylene glycol 0.4 %-0.3 1 drp ophthalmic (eye) DAILY 07/30/24 08/05/24 Unknown History % eye drops (Systane (propylene glycol)) Exam Height,Weight and Vital Signs: Height 4 ft 8 in Weight 71.668 kg Last Vital Signs Temp 97.5 F 08/05/24 10:06 Pulse 73 08/05/24 10:06 Resp 20 08/05/24 10:06 BP 152/86 H 08/05/24 10:06 Pulse Ox 97 08/05/24 10:06 O2 Del Method Room Air 08/05/24 10:06 Airway Mallampati Class: II TM Dist: >3cm Neck ROM: Limited Heart: rrr Lungs: cta Assessment and Plan Assessment Anesthesia Assessment: Anesthesia Plan Discussed Final Anesthetic Review Family History of Problems with Anesthesia: No History of Problems with Anesthesia: No NPO: Yes ASA Class: III Final Preanesthetic Review: No Changes in Pt Med Stat, Meds/Allgs Chart Reviewed, Consent Obtained/Reviewed and Anes Risks/Benef Reviewed Patient Risk: Intermediate Procedure Risk: Low Anesthetic Plan Anesthetic Plan: MAC: Disposition: Standard PACU
--- NOTE | 2024-08-05 11:20 | MHC.SHP ---
Pre-Procedural Eval Section A - 24 Hr Update-Section A only Date of Service: 08/05/24 Section B - Complete if H&P > 30 days Chief Complaint: Anemia, unspecified Relevant Family History (Specify if Yes): No Relevant Social History: None Present Medications: see Short Stay Collaborative assessment Medical History: Significant History (Obesity 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 Allergic rhinitis Diverticular disease of colon Essential hypertension Hypercholesteremia Moderate persistent asthma Osteopenia) History of Previous Operations: Relevant previous surgery/procedure and date(s) (Hx of esophagogastroduodenoscopy Hx of colonoscopy History of hysterectomy) Allergies: Allergies Allergy/AdvReac Type Severity Reaction Status Date / Time BIPHOSPHONATES Allergy Unknown Unknown Uncoded 07/29/24 20:41 Review of Systems Sugical H&P ROS: Negative: Constitution, Cardiovascular, Respiratory, Neurological, Psychiatric, Hem-Onc, Allergic/Immunologic, Gastrointestinal, Genitourinary, Musculoskeletal, Integumentary, Endocrine and Eyes/Ears/Nose/Throat Exam Surgical H&P Exam: Normal: HEENT, Normal: Heart, Normal: Lungs, Normal: Extremities, Normal: Abdomen, Normal: Skin and Normal: Neurological Plan Diagnosis/Plan: Unchanged I have reviewed the history and physical and performed a pertinent physical examination on my patient. No changes have occurred unless specified. Time Spent With Patient Time: Total time managing care of this patient today ____ minutes.
--- NOTE | 2024-08-05 12:16 | P.OPN-COLO_ITS ---
Colonoscopy Operative Note Operative Note Date of Service: 08/05/24 Narrative: Operative Information Procedure Description: EGD, Colonoscopy Indication: anemai Anesthesia: MAC FLEXIBLE TRANSORAL UPPER GASTROINTESTINAL ENDOSCOPY AND COLONOSCOPY PROCEDURE NOTE UPPER ENDOSCOPY Consent: Indications for the procedure and potential complications of bleeding, perforation, reaction to medications and missed diagnosis were discussed with the patient and informed consent was obtained. Instrument: Olympus GIF H 190 J mid size upper endoscope Monitoring: Vital signs and clinical assessment, continuous EKG monitoring, Pulse oximetry, Carbon Dioxide monitoring and blood pressure monitoring were done throughout the procedure. Procedure: The patient was placed in the left lateral decubitis position and pre-procedure medications were administered and a bite block was placed. The endoscope was inserted into the mouth and advanced under direct vision to the third part of duodenum. A careful inspection was made as the upper endoscope was withdrawn including a retroflexed examination of the proximal stomach; Findings and interventions are described below. Findings: Larynx:normal Esophagus: GE junction at 35 cm, diaphragm hiatus at 35 cm, schatzki ring no juan david, bx taken from GEJ and distal esophagus Stomach: Normal mucosa. Biopsies were obtained. Grade 2 flap valve on retroflexed examination of the cardia. Duodenum: Patchy erythema, bx taken Intervention: Biopsies as noted above, COLONOSCOPY Instrument: Olympus variable stiffness pediatric scope 190L Colonoscopy Monitoring: Vital signs and clinical assessment, continuous EKG monitoring, Pulse oximetry, Carbon Dioxide monitoring and blood pressure monitoring were done throughout the procedure. Colon withdrawal time was 10 minutes. Procedure: The patient was placed in the left lateral decubitis position and pre-procedure medications were administered. After a digital rectal examination of the ano-rectum, the video colonoscope was inserted into the rectum and advanced through the colon to the cecum/TI. The colonoscope was slowly withdrawn in a retrograde panoramic fashion and the colon mucosa was carefully examined including a retroflexed view of the rectum. Findings and interventions are described below. Procedure Difficulty:moderate Findings: Terminal Ileum-normal Cecum:normal Ascending Colon: normal Transverse Colon -normal Descending Colon: 4-6 mm sessile polyp removed with cold forceps, 8-9 mm sessile polyp removed with cold snare Sigmoid Colon: moderate diverticulosis Rectum: Retroflexion with small internal hemorrhoids, grade I Anorectum - normal Colon preparation: [place] Bowel Preparation Scale Right colon; 2 Transverse colon: 2 Left colon; 2 (0 = Unprepared colon segment with mucosa not seen due to solid stool that danie ot be cleared. 1 = Portion of mucosa of the colon segment seen, but other areas of the colon segment not well seen due to staining, residual stool and/or opaque liquid. 2 = Minor amount of residual staining, small fragments of stool and/or opaque liquid, but mucosa of colon segment seen well. 3 = Entire mucosa of colon segment seen well with no residual staining, small fragments of stool or opaque liquid) Impression and Post Procedure Diagnosis: Endoscopy Findings: schatzki ring duodenitis mild esophagitis Colonoscopy Findings: diverticulosis colon polyps internal hemorrhoids Plan: Await Pathology results Repeat Colonoscopy in 5 years if health allows or earlier if clinically indicated, High fiber diet leaflet avoid straining at stool, epsom salts and sitz bath, anusol supps or cream if bx neg then can consider capsule endoscopy Above findings were reviewed with the patient and relevant handouts were provided if indicated.
[2024-08-05 12:24] VITALS: BP 102/55; PULSE 103; RESP 16; TEMP 36.2; O2SAT 100
[2024-08-05 12:35] VITALS: BP 129/61; PULSE 91; RESP 16; O2SAT 100
[2024-08-05 12:47] VITALS: BP 153/71; PULSE 93; RESP 16; TEMP 36.1; O2SAT 100
== END 2024-08-05 13:26 | disposition home or self-care (01) ==
PROVIDERS: PCP Registered Nurse; Visit Provider Internal Medicine Gastroenterology
PROC: (CPT 43239; principal; 2024-08-05 11:40)
DX: K21.00 Gastro-esophageal reflux disease with esophagitis, without bleeding (principal); K26.9 Duodenal ulcer, unspecified as acute or chronic, without hemorrhage or perforation; K29.60 Other gastritis without bleeding; K22.2 Esophageal obstruction; D12.2 Benign neoplasm of ascending colon; K57.30 Diverticulosis of large intestine without perforation or abscess without bleeding; K64.0 First degree hemorrhoids; K52.9 Noninfective gastroenteritis and colitis, unspecified; I10 Essential (primary) hypertension; E78.00 Pure hypercholesterolemia, unspecified; J45.30 Mild persistent asthma, uncomplicated; Z90.710 Acquired absence of both cervix and uterus; Z79.02 Long term (current) use of antithrombotics/antiplatelets; Z79.899 Other long term (current) drug therapy
CPT/HCPCS: 43239; 45385; 45380; 88305; 88313; 88342; J1100; J1596; J2003; J2704

== ENCOUNTER → 2024-08-05 08:45 | Outpatient (BNV) | payer OTHER, SELFPAY | PROVIDERS: PCP Registered Nurse; Visit Provider Internal Medicine Gastroenterology | DX: D64.9 Anemia, unspecified (principal); K22.2 Esophageal obstruction; K29.80 Duodenitis without bleeding; K20.90 Esophagitis, unspecified without bleeding; D12.2 Benign neoplasm of ascending colon; K64.0 First degree hemorrhoids; K57.30 Diverticulosis of large intestine without perforation or abscess without bleeding | CPT/HCPCS: 43239; 45385 ==

== ENCOUNTER 2024-09-15 10:28 | Outpatient (REF) | payer OTHER, SELFPAY ==
[2024-09-15 11:31] LABS: MANUAL DIFF FLAG NO
[2024-09-15 11:44] LABS: Basophils Percent Auto 0.6 % (0-2); Eosinophils Absolute Auto 0.6 X10*3/uL (0.0-0.4); Eosinophils Percent Auto 12.1 % (0-4); Hematocrit 30.3 % (37.0-47.0); Hemoglobin 10.3 g/dl (12.0-16.0); Imm Gran Abs Auto 0.01 X10*3/uL (0.00-0.03); Imm Gran Pct Auto 0.2 % (0.0-0.4); Lymphocytes Absolute Auto 2.1 X10*3/uL (1.2-4.9); Lymphocytes Percent Auto 42.6 % (20-40); Mean Corpuscular Hemoglobin 32.2 pg (27.0-33.0); Mean Corpuscular Volume 94.7 fL (80.0-98.0); Mean Platelet Volume 10.5 fL (9.4-12.3); Monocytes Absolute Auto 0.4 X10*3/uL (0.1-1.2); Monocytes Percent Auto 8.4 % (2-11); Neutrophils Absolute Auto 1.8 x10*3/uL (2.0-8.3); Neutrophils Percent Auto 36.1 % (45-73); Platelet Count 198 X10*3/uL (160-400); Red Cell Distribution Width 12.6 % (11.0-16.0); White Blood Count 4.9 X10*3/uL (4.8-10.8)
== END 2024-09-15 10:29 | disposition home or self-care (01) ==
LOC: HO.HHCL 10:28
PROVIDERS: Visit Provider Internal Medicine
DX: A09 Infectious gastroenteritis and colitis, unspecified (principal)
CPT/HCPCS: 36415; 85025

== ENCOUNTER 2024-11-02 11:57 | Outpatient (AMB) | payer OTHER, SELFPAY ==
--- NOTE | 2024-11-02 11:59 | MHC.OFFVIS ---
Intake Visit Reasons: 4 m f/u for urogyno referral Intake Note: Patient is Present for Telephone Follow Up Urology Med: Pt no longer on Terazosin Antibiotic Allergy:None Blood Thinner: None Asw Specialist Required: Yes Asw Specialist Language: Accounts Payable Analyst Services: Asw Specialist Present Asw Specialist Name: [id number] Allergies BIPHOSPHONATES Allergy (Unknown, Uncoded 11/02/24 12:18) Unknown Medication List - Last Reconciled 11/02/24 by STERLING HinkleP- albuterol sulfate 90 mcg/actuation 2 puffs inhalation QID PRN amlodipine 5 mg PO DAILY calcium carbonate-vitamin D3 600 mg-10 mcg (400 unit) 1 tab PO BID docusate sodium 100 mg PO DAILY ergocalciferol (vitamin D2) 50,000 units PO Q30D ferrous sulfate (FeroSul) 325 mg PO DAILY fluticasone propion-salmeterol 250-50 mcg/dose 1 ea inhalation BID lisinopril-hydrochlorothiazide 20-25 mg 1 tab PO DAILY loratadine 10 mg PO DAILY peg 400-propylene glycol 0.4-0.3 % (Systane (propylene glycol)) 1 drp ophthalmic (eye) DAILY rosuvastatin 20 mg PO BEDTIME terazosin 1 mg PO DAILY 90 days HPI Comments Details: Kalil is a very pleasant 74 year old Upper Sorbian speaking patient of Dr. Sarkar. She has a PMH of obesity, allergic rhinitis, hypertension, hypercholesteremia, moderate persistent asthma, and osteopenia. She presents to the office today for follow-up of her microscopic hematuria, renal cyst and incomplete bladder emptying. Of note, patient was seen approximately 4 months ago at which time recommendations were made for urogynecology for further assessment evaluation. However, in discussion with the patient today she denies ever receiving a call however she is vague because she then states she was on the phone for over 1-1/2 hours. Information provided for urogynecology office [phone]. Multiple pessary rings with support were attempted for grade 2 cystocele however patient reported no improvement as pessaries continue to fall out. We did attempt to upsized as well as trial other pessaries without improvement therefore we discussed further treatment options of pelvic organ prolapse. Previous workup has included a retroperitoneal ultrasound 2/ noting bilateral kidneys with no calculi. Right kidney with 1.8 cm lower pole cysts. 1.7 cm upper pole cyst there is no indication for follow-up imaging. Left kidney with 1.1 cm lower pole cyst and 1.0 cm upper pole cyst with benign features. There is no indication for follow-up imaging per radiology report. The bladder is partially distended. Bilateral ureteral jets are demonstrated. Pre void bladder volume is approximately 235mls postvoid bladder volume is approximately 100 mL. Urine Cytology 02/17 Negative for high-grade urothelial carcinoma. When asked she denies any UTI like symptoms. She continues to report mixed urinary incontinence. When asked she denies dysuria, foul smelling urine, changes to urinary stream, flank pain, fever, and or chills. She otherwise offers no other issues or concerns at this time. 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 Allergic rhinitis Diverticular disease of colon Essential hypertension Hypercholesteremia Moderate persistent asthma Osteopenia Surgical History Hx of esophagogastroduodenoscopy Hx of colonoscopy History of hysterectomy Social History Household Members: Spouse Housing: Condominium Do you presently have visiting nurse or other home services: No Patient Tobacco Use Status: Never used Tobacco service: No Review of Systems Eyes Reports no additional complaints ENT Reports no additional complaints Card Reports as per HPI Resp Reports as per HPI GI Reports no additional complaints Reports as per HPI Musc Reports as per HPI Neuro Reports no additional complaints Psych Reports no additional complaints Endo Reports no additional complaints Иван/Lymph Reports no additional complaints Aller/Immun Reports no additional complaints Physical Exam Const General: cooperative Orientation/consciousness: patient oriented x3 Resp Effort & Inspection: able to speak in complete sentences Neuro General: patient oriented x3 Psych Attitude: cooperative Thought content: Normal thought content present Insight: Fair insight present (Psych) Judgement: Fair judgement present (Psych) Telehealth Telehealth Telehealth Platform: Telephone Location of provider rendering services: practice address Location of patient: address on file Patient Identification confirmed using: Name, : Yes Telehealth method: voice only Patient verbally consented to treatment: Yes Patient verbally consented to billing insurance company: Yes Patient informed of any privacy concerns related to visit: Yes Minutes spent on Phone/Video with Pt.: 15 Assessment & Plan Assessment & Plan (1) Cystocele with prolapse: Code(s): N81.4 - Uterovaginal prolapse, unspecified Category: Medical (2) Renal cyst: Code(s): N28.1 - Cyst of kidney, acquired Category: Medical (3) Incomplete bladder emptying: Code(s): R33.9 - Retention of urine, unspecified Category: Medical (4) Urinary frequency: Code(s): R35.0 - Frequency of micturition Category: Medical (5) Microscopic hematuria: Code(s): R31.29 - Other microscopic hematuria Category: Medical Plan Discussed at length further treatment options of bladder prolapse. Multiple pessary options previously trialed and failed. Will re-refer to urogynecology for further assessment evaluation; information provided to the patient All questions were answered She currently denies any bothersome lower urinary tract symptoms. Will follow-up in office in 3 months with PVR; or sooner with any issues, concerns, and or questions. Patient Instructions: The patient had an opportunity to ask questions regarding the treatment plan. All questions were answered. Physical exam, labs, and imaging were discussed and reviewed in detail. As well as risks, benefits, and discussion of treatment choices. No major barriers to understanding were identified. The patient expressed understanding and agreement with the above treatment plan. The patient was made aware they should contact our office by phone for worsening of their current condition, the appearance of new symptoms, or with any questions or concerns. Compliance is encouraged with any medications and follow up testing that is ordered. It is a privilege to be allowed the opportunity to participate in? your urological care.? Again, if you have any questions or concerns If you have any questions or concerns please do not hesitate to contact me. The office is [phone]. This note is constructed using voice recognition software. While every effort has been made to ensure accuracy checker errors may have been included. Yours sincerely, KOFFI Hinkle Coding Level of Care Code Tele Est Pt Level 3 (70056) Diagnoses Cystocele with prolapse N81.4 Renal cyst N28.1 Incomplete bladder emptying R33.9 Urinary frequency R35.0 Microscopic hematuria R31.29
== END 2024-11-02 13:23 | disposition home or self-care (01) ==
LOC: HO.HUSH 11:57
PROVIDERS: PCP Registered Nurse; Visit Provider Nurse Practitioner Family
DX: N81.4 Uterovaginal prolapse, unspecified (principal); N28.1 Cyst of kidney, acquired; R33.9 Retention of urine, unspecified; R35.0 Frequency of micturition; R31.29 Other microscopic hematuria
CPT/HCPCS: 98005

== ENCOUNTER 2024-12-20 10:59 | Outpatient (AMB) | payer OTHER, SELFPAY ==
--- NOTE | 2024-12-20 11:09 | A.OFFVIS_ITS ---
Vital Signs 12/20/24 11:13 Height 4 ft 8 in Weight 141 lb 1.533 oz BMI 31.6 BP 151/85 H Blood Pressure Location Lt brachial Position Sitting Pulse 87 Intake Visit Reasons: Colitis Intake Note: Shakira presents in the office as a follow up for Colitis. CC: She states that she is not having any issues with her stomach. She denies any irregular bowel movements. [employer] Crewmember Required: Yes Allergies BIPHOSPHONATES Allergy (Unknown, Uncoded 12/20/24 11:14) Unknown HPI HPI Colitis: Details: 74 years old woman with hx of essential hypertension and hyperlipidemia who I am seeing for f/u for abdominal pain and abn imaging 08/19 RECAP Patient had 2 d hx of severe generalized crampy abdominal pain 08/05 wihout any exacerbating or relieving factors and associated with nausea, dizziness and nonbloody yellowish vomiting. Last colo with Dr Andrews 2018, no masses seen. Labs with normocytic anemia, with baseline hgb normally around 10-11 g.dl. BUN is 39 and creatinine 1.25. LFTs and lipase were normal. UA was consistent with UTI Imaging: Concentric mural thickening of the splenic flexure of the colon suspicious for ischemic or infectious colitis EGD/colo:08/19 Endoscopy Findings: schatzki ring duodenitis mild esophagitis Colonoscopy Findings: diverticulosis colon polyps internal hemorrhoids Path: colon polyps --reflux damage to esophagus INTERIM she feels well no blood in stools no diarrhea occ constipation and takes miralax which helps no nose bleeds or blood in urine EXAM: GENERAL: The patient is well developed and nontoxic. VITAL SIGNS:see workflow HEENT: Nonicteric sclerae, PERRLA, EOMI. Oropharynx clear. Moist mucous membranes. Conjunctivae appear well perfused. No thyroid mass. CHEST: Chest wall is nontender. HEART: Regular rate and rhythm without murmurs. LUNGS: Clear to auscultation bilaterally. ABDOMEN: Soft, positive bowel sounds, nontender, no organomegaly.no flank tenderness SKIN: No rash, no excessive bruising, petechiae, or purpura. NEUROLOGIC: Cranial nerves II-XII intact without motor/sensory deficit. 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 Allergic rhinitis Diverticular disease of colon Essential hypertension Hypercholesteremia Moderate persistent asthma Osteopenia Surgical History Hx of esophagogastroduodenoscopy Hx of colonoscopy History of hysterectomy Social History Household Members: Spouse Housing: Condominium Do you presently have visiting nurse or other home services: No Patient Tobacco Use Status: Never used Tobacco service: No Physical Exam Vital Signs: Last Vital Signs Pulse 87 12/20/24 11:13 BP 151/85 H 12/20/24 11:13 BMI result Body Mass Index 31.6 Assessment & Plan Assessment & Plan (1) Abdominal pain: Code(s): R10.9 - Unspecified abdominal pain Category: Medical Qualifiers: Abdominal location: generalized Qualified Code(s): R10.84 - Generalized abdominal pain Plan: see above (2) Anemia: Code(s): D64.9 - Anemia, unspecified Category: Medical Plan: see above Orders: Orders Ferritin Today D64.9 - Anemia, unspecified, R10.84 - Generalized abdominal pain Complete Blood Count Auto Diff Today D64.9 - Anemia, unspecified, R10.84 - Generalized abdominal pain Hemoglobin Electrophoresis Today D64.9 - Anemia, unspecified, R10.84 - Genera lized abdominal pain Zinc Today D64.9 - Anemia, unspecified, R10.84 - Generalized abdominal pain Comprehensive Met. Panel Today D64.9 - Anemia, unspecified, K75.81 - Nonalcoholic steatohepatitis (FAUSTIN), R10.84 - Generalized abdominal pain Vitamin B12 and Folate Today D64.9 - Anemia, unspecified, R10.84 - Generalized abdominal pain Coding Level of Care Code Est Pt Level 4 (79835) Diagnoses Abdominal pain R10.84 Abdominal location: generalized Anemia D64.9
[2024-12-20 11:13] VITALS: BP 151/85; PULSE 87; BMI 31.6
--- OUTSIDE RECORDS SUMMARY | 2024-12-20 12:39 | XMS_ITS | Encounter Summary ---
Author Organization [employer] Address [address] [place] [address] [address] [place] [address] Care Team Providers Care Blowing Weasand Name Role Phone Mirella Sarkar [facility] Primary Care Provider [phone] Encounter Details Date Type Department Care Team (Late st Contact Info) Description 11/25/2022 Orders Only [facility] CHC MED & PEDS [address] [place], [place] [id number] Abby Vale LPN Social History Tobacco Use Types Packs/Day Years Used Date Smoking Tobacco: Never Assessed Comments Unknown Sex and Gender Information Value Date Recorded Sex Assigned at Female 08/26/2022 10:14 AM EDT Legal Sex Female 10:14 AM EDT Gender Identity Female 08/26/2022 10:14 AM EDT Sexual Orientation Straight 08/26/2022 10 :14 AM EDT documented as of this encounter Plan of Treatment Upcoming Encounters Date Type Department Care Team (Late st Contact Info) Description 12/21/2024 1:00 PM EST Clinical Support [facility] DIABETES/NUTRITION [address] [place] [address] [place] [address] 01/07/2025 9:30 AM EDT Office Visit [facility] MEDICINE [address] [place] [address] Mirella Sarkar FNP [address] [place] [address] documented as of this encounter Visit Diagnoses Not on filedocumented in this encounter Care Teams Blowing Weasand Relationship Specialty Start Date End Date Mirella Sarkar FNP [address] [place] [address] PCP - General Family Medicine 06/20/22 documented as of this encounter
--- OUTSIDE RECORDS SUMMARY | 2024-12-20 12:39 | XMS_ITS | Encounter Summary ---
Author Organization [employer] Address [address] [facility] [address] [place] [address] Care Team Providers Care Assistant Professor Of Nursing Name Role Phone Mello [place] BUFFING MACHINE OPERATOR Primary Care Provider [phone] Encounter Details Date Type Department Care Team ([facility] st Contact Info) Description 10/17/2023 Orders Only [facility] CHC MED & PEDS [address] [place] [address] Abby Vale LPN Social History Tobacco Use Types Packs/Day Years Used Date Smoking Tobacco: Never Smokeless Tobacco: Never Alcohol Use Standard Drinks/Week Comments Never 0 (1 standard drink = 0.6 oz pur e alcohol) Depression Answer Date Recorded Patient Health Questionnaire-9 Score 0 09/05/2023 Patient Health Questionnaire-9 Score 0 09/05/2023 Last PHQ-9: Questionnaire Data Not on file 1 11/05/2022 Housing Stability Answer Date Recorded What is your housing situation today? I have sofie joe 08/13/[address] you li ve. Do you have problems with any of the following? None of the above 08/13/2023 Food Insecurity Answer Date Recorded Within the past 12 months, y ou worried that your food would run out before you got money to buy more: Never True 08/13/2023 Within the past 12 months,th e food you bought just didn't last and you didn't have enough money to get more: Never True Transportation Answer Date Recorded In the past 12 months, has l ack of transportation kept you from medical appts, meetings, work or from getting things needed for daily living? No 08/13/2023 Utilities Answer Date Recorded In the past 12 months, has t he electric, gas, oil or water company threatened to shut off services in your home? No 08/13/2023 Depression Answer Date Recorded Patient Health Questionnaire-2 Score 0 09/05/2023 Comments Unknown Sex and Gender Information Value [...] Description 12/21/2024 1:00 PM EST Clinical Support [facility] DIABETES/NUTRITION [address] [place] [address] [place] [address] 01/07/2025 9:30 AM EDT Office Visit [facility] MEDICINE [address] [place] [address] Mirella Sarkar FNP [address] [place] [address] documented as of this encounter Visit Diagnoses Not on filedocumented in this encounter Additional Health Concerns Assessment Noted Time PHQ-9 Depression Total Score: 0 09/05/20 23 11:38 AM EST documented as of this encounter Care Teams Assistant Professor Of Nursing Relationship Specialty Start Date End Date Mirella Sarkar FNP [address] [place] [address] PCP - General Family Medicine 06/20/22 documented as of this encounter
--- OUTSIDE RECORDS SUMMARY | 2024-12-20 12:39 | XMS_ITS | Encounter Summary ---
Author Organization [employer] Address [address] [place] [address] [address] [place] [address] Care Team Providers Care Excelsior Machine Operator Name Role Phone Mello [facility] Primary Care Provider [phone] Encounter Details Date Type Department Care Team (Late st Contact Info) Description 10/30/2022 Orders Only [facility] CHC MED & PEDS [address] [place], [place] [phone] Abby Vale LPN Social History Tobacco Use [...] Description 12/21/2024 1:00 PM EST Clinical Support [facility] DIABETES/NUTRITION [address] [place] [address] [place] [address] 01/07/2025 9:30 AM EDT Office Visit [facility] MEDICINE [address] [place] [address] [facility] [address] [place] [address] documented as of this encounter Procedures Procedure Name Priority Date/Time Associated Diagnosis Comments BI MAMMOGRAM SCREENING TOMOSYNTHESIS BILATERAL Routine 11/06/2022 10:30 AM EST documented in this encounter Results * BI Mammogram Screening Tomosynthesis Bilateral (11/06/2022 10:30 AM EST) Anatomical Region Laterality Modality Breast Bilateral Mammography 11/06/2022 10:3 0 AM EST Narrative 11/07/2022 4:12 PM EST ? [facility] ? [address] ?[place] [address] ? Mammography Report ? Signed ? Patient: Ted Garcia,Heide ?MR#: [id number] ?? [id number] ? : 1950 ?Acct:[id number] ? Age/Sex: 72 / F ?ADM Date: 11/06/22 ? Loc: HO.MAMMO ? Attending Dr: Bridgett Braun ? Ordering Physician: Bridgett Braun ? Results: 2Benign F ?? indings ? Date of Service: 11/06/22 ?Follow Up: 1 Year From Orig ?? inal Mammogram ? Procedure(s): MM tomosynthesis screening BI ?? Accession Number(s): [id number] ? cc: Bridgett Braun ? EXAMINATION: ?? MM SCREENING DIGITAL BREAST TOMOSYNTHESIS, BILATERAL ? CLINICAL INFORMATION: ? Screening. Asymptomatic. Family history breast cancer, sister. ? COMPARISON: ?? Mammography: 11/02/2021, 04/25/2020, 02/13/2019, 02/02/2018 ? TECHNIQUE: ?? Digital breast tomosynthesis is performed in both the craniocaudal and ?? mediolateral oblique views along with computer-aided detection (CAD). ?? Synthesized 2D images are generated from the tomosynthesis. ? FINDINGS: ?? There are scattered areas of fibroglandular density (ACR BI-RADS breast ?? composition Category b). ? Breast tissue composition borders on predominantly fatty. No interval ?? architectural abnormality or developing density or abnormal ?? calcifications. Background stromal and fibroglandular densities are ?? stable. There are incidental intramammary nodes again seen posterior ?? upper outer bilateral breasts. Biopsy clip marker again noted posterior ?? central right breast. The axilla and skin contours are unremarkable. ? MM/MM tomosynthesis screening BI ?? IMPRESSION: ?? No mammographic evidence of malignancy. ? ASSESSMENT: ? BI-RADS 2: Benign ? RECOMMENDATION: ?? Routine annual mammography screening. ? This patient's information was entered into a reminder system with a ?? target due date for their next mammogram. ? Dictated By: ?Hal Salinas MD ? Signed By: ?<Electronically signed by Hal Salinas MD in OV> ?11/07/22 1609 ? DD/ 1030 ? TD/TT: ? Dispatcher Tugboat: REEVES ? Procedure Note Donmonikater, Image - 11/07/2022 [facility] [address] [place] [address] Mammography Report Signed Patient: Kalli Peoples LMR#: [id number] : 9Acct:[id number] Age/Sex: 72 / FADM Date: 11/06/22 Loc: [facility] Attending Dr: Bridgett Braun Ordering Physician: Vimal Braunults: 2Bjoan Avila indomero Date of Service: 11/06/22Follow Up: 1 Year From Orig inal Mammogram Procedure(s): MM tomosynthesis screening BI Accession Number(s): [id number] cc: Braun,Bridgett EXAMINATION: MM SCREENING DIGITAL BREAST TOMOSYNTHESIS, BILATERAL CLINICAL INFORMATION: Screening. Asymptomatic. Family history breast cancer, sister. COMPARISON: Mammography: 11/02/2021, 04/25/2020, 02/13/2019, 02/02/2018 TECHNIQUE: Digital breast tomosynthesis is performed in both the craniocaudal and mediolateral oblique views along with computer-aided detection (CAD). Synthesized 2D images are generated from the tomosynthesis. FINDINGS: There are scattered areas of fibroglandular density (ACR BI-RADS breast composition Category b). Breast tissue composition borders on predominantly fatty. No interval architectural abnormality or developing density or abnormal calcifications. Background stromal and fibroglandular densities are stable. There are incidental intramammary nodes again seen posterior upper outer bilateral breasts. Biopsy clip marker again noted posterior central right breast. The axilla and skin contours are unremarkable. MM/MM tomosynthesis screening BI IMPRESSION: No mammographic evidence of malignancy. ASSESSMENT: BI-RADS 2: Benign RECOMMENDATION: Routine annual mammography screening. This patient's information was entered into a reminder system with a target due date for their next mammogram. Dictated By: Hal Salinas MD Signed By: <Electronically signed by Hal Salinas MD in OV> 11/07/22 1609 DD/ 1030 TD/TT: Dispatcher Tugboat: REEVES [facility] External Provider IMG BI PROCEDURES Final Result documented in this encounter Visit Diagnoses Not on filedocumented in this encounter Care Teams Excelsior Machine Operator Relationship Specialty Start Date End Date Mirella Sarkar FNP [address] [place] [address] PCP - General Family Medicine 06/20/22 documented as of this encounter
--- OUTSIDE RECORDS SUMMARY | 2024-12-20 12:39 | XMS_ITS | Encounter Summary ---
Author Organization [employer] Address [address] [facility] [address] [place] [address] Care Team Providers Care Payroll Master Name Role Phone Mello [facility] Primary Care Provider [phone] Encounter Details Date Type Department Care Team (Latest Contact Info) Description 11/23/2024 11:00 AM EST Clinical Support [facility] DIABETES/NUTRITION [address] [place], [place] [phone] [address] [place], [place] [phone] Infectious colitis (Primary Dx) Social History Tobacco Use Types Packs/Day Years Used Date Smoking Tobacco: Never Passive Smoke Exposure: Never Smokeless Tobacco: Never Alcohol Use Standard Drinks/Week Comments Never 0 (1 standard drink = 0.6 oz pur e alcohol) Depression Answer Date Recorded Patient Health Questionnaire-9 Score 0 03/31/2024 Patient Health Questionnaire-9 Score 0 03/31/2024 Last PHQ-9: Questionnaire Data Not on file 0 03/31/2024 Housing Stability Answer Date Recorded What is your housing situation today? I have sofie joe 03/31/[address] you li ve. Do you have problems with any of the following? None of the above 03/31/2024 Food Insecurity Answer Date Recorded Within the past 12 months, y ou worried that your food would run out before you got money to buy more: Never True 03/31/2024 Within the past 12 months,th e food you bought just didn't last and you didn't have enough money to get more: Never True 02/2024 Transportation Answer Date Recorded In the past 12 months, has l ack of transportation kept you from medical appts, meetings, work or from getting things needed for daily living? No 03/31/2024 Utilities Answer Date Recorded In the past 12 months, has t he electric, gas, oil or water company threatened to shut off services in your home? No 03/31/2024 Depression Answer Date Recorded Patient Health Questionnaire-2 Score 0 03/31/2024 Comments Unknown Sex and Gender Information Value Date Recorded Sex Assigned at Female 08/26/2022 10:14 AM EDT Legal Sex Female 10:14 AM EDT Gender Identity Female 08/26/2022 10:14 AM EDT Sexual Orientation Straight 08/26/2022 10 :14 AM EDT documented as of this encounter Progress Notes * Bailey Ford, ANUEL - 11/23/2024 11:00 AM EST In Person Visit Medical Diagnosis: A09 Infectious colitis Anthropometrics: 10/26/2024, Ht:4' 8 (1.422 m), Wt:143 lb 9.6 oz (65.1 kg), BMI: Body mass index is 32.19 kg/m??. Assessment: Patient (Pt) accepted nutrition education assessment appointment with RD. RD used the weight taken on 10/26/2024. iSnap drawing box tender, César Nunez, translated. Today, Pt only did the part of first half of First appointment. Once the second half of First appointment is finished, RD will fill in nutrition diagnosis, nutrition Intervention, goals, Tailored made meal plan, monitoring and evaluation will be put into Pt's chart here. Thus, all is to be followedby Pt with their agreement. The second half of First nutrition education assessment appointment is scheduled in the second weekof November 2024. Note: Pt reported to RD to be doing suggestions given on 10/26/2024. Water is being drank and real butteris being used instead of margarine. In addition, RD asked Pt how her stomach is doing? Pt told RD that she is doing well with no issuesat this time. Food Allergies: NKFA Exercise: Pt didn't say. Food Intolerance: None mentioned today Food Preferences: White bread, crackers, oatmeal, corn meal, noodles/ pasta, root vegetables, green plantains, lettuce, tomatoes, corn, celery, potato, hot chocolate made from [employer] Quick, milk, sugar, eggs, chicken,pork, beef, cheeses Food Dislikes: Didn't say today Frequency of Eating Out/ Restaurant: Not a norm Who Cooks?: Partner How much caffeine?: caffeinated soft drinks 1 cup /day and coffee 1/2 - 1 /day How much sugary beverages?: Coffee, 1/2 - 1 cup Diet History: Intake is a copy taken from ANUEL note on 10/26/2024. Breakfast: Takes medications one hour before eating with a one+ cup of water. White bread: 1 slice Peanut butter: 1 tablespoon Jelly: 2 teaspoons Coffee: 1/2 cup Milk: 1/2 cup Sugar: 1 tablespoon Snack: none Lunch: Coffee: 1/2 cup Milk: 1/2 cup Crackers, saltines: 4+ Snack: At 2:30 pm every day, makes and drinks Colace drink mix Dinner: Rice: 1/2 cup Beans: 1/2 cup Chicken: 4 oz. Diet Pepsi: 1 cup Snack: Nestle Quick chocolate mix: 5 or so teaspoons to make a hot chocolate Saltine crackers: 6 Nutrition Diagnosis: 1st half of First appointment was done today. When the 2nd half of First appointment is finished/ done, this area will be filled in. Nutrition Intervention: 1st half of First appointment was done today. When the 2nd half of First appointment is finished/ done, this area will be filled in. Monitoring and Evaluation: 1st half of First appointment was done today. When the 2nd half of First appointment is finished/ done, this area will be filled in. Provider: Bailey Ford RD, ISRA documented in this encounter Plan of Treatment Upcoming Encounters Date Type Department Care Team (Late st Contact Info) Description 12/21/2024 1:00 PM EST Clinical Support [facility] DIABETES/NUTRITION [address] [place] [address] [place] [address] 01/07/2025 9:30 AM EDT Office Visit [facility] MEDICINE [address] [place] [address] Mirella Sarkar FNP [address] [place] [address] documented as of this encounter Visit Diagnoses Diagnosis Infectious colitis- Primary Infectious colitis, enteritis, and gastroenteritis documented in this encounter Additional Health Concerns Assessment Noted Time PHQ-9 Depression Total Score: 0 03/31/20 24 11:14 AM EDT documented as of this encounter Care Teams Payroll Master Relationship Specialty Start Date End Date Mirella Sarkar FNP [address] [place] [address] PCP - General Family Medicine 06/20/22 documented as of this encounter
--- OUTSIDE RECORDS SUMMARY | 2024-12-20 12:39 | XMS_ITS | Encounter Summary ---
Author Organization [employer] Address [address] [facility] 7t [place] [address] Care Team Providers Care Cell Tender Name Role Phone Mello [facility] Primary Care Provider [phone] Encounter Details Date Type Department Care Team (Latest Contact Info) Description 12/07/2024 11:30 AM EST Clinical Support [facility] DIABETES/NUTRITION [address] [place], [place] [phone] Bailey Ford [address] [place], [place] [phone] Infectious colitis (Primary Dx) Social History Tobacco [...] your housing situation today? I have sofie jeo 03/31/[address] you li [...] Progress Notes * Bailey Ford, ANUEL - 12/07/2024 11:30 AM EST In Person Visit Medical Diagnosis: A09 Infectious colitis Anthropometrics: 10/26/2024, Ht:4' 8 (1.422 m), Wt:143 lb 9.6 oz (65.1 kg), BMI: Body mass index is 32.19 kg/m??. Assessment: Patient (Pt) accepted nutrition education assessment appointment with ANUEL. RD is using weight taken on 10/26/2024 for today's note/ visit. Zipzoom conference translator, Amber [phone] translated. Today, Pt completed the second half of the First nutrition education assessment appointment with ANUEL. RD gave nutrition education, portion control, explanation of carbohydrates, proteins and fats. In addition, RD used plastic food models to show portion control, plating of meals. RD wrote out a tailor made menu plan for Pt with foods he likes, what foods she should eat and not eat suggested by RD; and foods RD suggested to try. Pt agreed to try the new foods. Carbohydrate intake per day estimated to be: 6-8 servings per day with tailor made menu plan. RD did suggest some foods to slightly increase fiber. RD is to be seeing Pt in 2 weeks to see how she is doing with the change in foods and toleration of these foods. Follow up is in two weeks on December 21, 2024. Food Allergies: NKFA Exercise: Pt didn't say. [...] Intake is a copy taken from ANUEL mcgarry on 10/26/2024. Breakfast: Takes medications one hour [...] hot chocolate Saltine crackers: 6 Nutrition Diagnosis: NC-1.4 Altered GI function related to infectious colitis as evidence by hospitalization for infectious colitis, history of infectious colitis and diverticular disease of the colon. Initial Nutrition Therapy: Education provided about relation between healthy eating and health, MNT for weight management including: three meal per day with two carbohydrates per meal, a fresh salad (2-2 1/2 cups) at both lunch and dinner; one carbohydrate for mid- morning and mid-afternoon; portion controls; how to build a plate; food exchanges between food groups; importance of fiber; how to combine different fibers intodiet. In addition, education on MNT for label reading; uses of natural spices and herbs for flavoring; and, MNT for different oils/ fats, no trans fats and no hydrogenated oils. Goals: Eat two carbohydrates for breakfast, lunch and dinner Eat one carbohydrate for mid morning and mid afternoon snacks Eat a fresh salad > one cup at both lunch and dinner Eat protein and fats as advised in meal plan Drink water as beverage of choice-> 6-8 glasses and/ or Crystal Light/ Sugar free Exercise at least 30 minutes per day Use extra virgin olive oil(EVOO) after cooking on foods-> don't cook with EVOO Monitoring and Evaluation: Indicator Criteria Adherence frequency of eating, portion controls, carbohydrate exchanges, protein intake Weight Loss BMI, exercise routine and frequency Glucose control A1C, blood sugars Lipid control Lipid panel Provider: Bailey Ford RD, LDN documented in this encounter Plan of Treatment Upcoming Encounters Date Type Department Care Team (Late st Contact Info) Description 12/21/2024 1:00 PM EST Clinical Support [facility] DIABETES/NUTRITION [address] [place] [address] [place] [address] 01/07/2025 9:30 AM EDT Office Visit [facility] MEDICINE [address] [place] [address] Mirella Sarkar FNP [address] [place] [address] documented as of this encounter Visit Diagnoses Diagnosis Infectious colitis- Primary Infectious colitis, enteritis, and gastroenteritis documented in this encounter Additional Health Concerns Assessment Noted Time PHQ-9 Depression Total Score: 0 03/31/20 24 11:14 AM EDT documented as of this encounter Care Teams Cell Tender Relationship Specialty Start Date End Date Mirella Sarkar FNP [address] [place] [address] PCP - General Family Medicine 06/20/22 documented as of this encounter
--- OUTSIDE RECORDS SUMMARY | 2024-12-20 12:39 | XMS_ITS | Encounter Summary ---
Author Organization [employer] Address 75 [facility] 7t [place] [address] Care Team Providers Care Transfer Pumper Name Role Phone Mello Mirella PHARMACOGENETICIST Primary Care Provider [phone] Encounter Details Date Type Department Care Team (Late st Contact Info) Description 02/04/2024 Orders Only [facility] MEDICINE [address] [place], [place] [phone] Provider, MD Frida Social History Tobacco Use Types Packs/Day Years [...] is your housing situation today? I have sofiefior joe 08/13/[address] you [...] Description 12/21/2024 1:00 PM EST Clinical Support [facility] DIABETES/NUTRITION [address] [place] [address] [place], [place] [phone] 01/07/2025 9:30 AM EDT Office Visit [facility] MEDICINE [address] [place] [address] Mirella Sarkar FNP [address] [place] [address] documented as of this encounter Procedures Procedure Name Priority Date/Time Associated Diagnosis Comments COLONOSCOPY Routine 07/06/2019 8:37 AM EDT documented in this encounter Results * Hm Colonoscopy (07/06/2019 8:37 AM EDT) us Historical Provider HEALTH MAINTENANCE Final Result documented in this encounter Visit Diagnoses Not on filedocumented in this encounter Additional Health Concerns Assessment Noted Time PHQ-9 Depression Total Score: 0 09/05/20 23 11:38 AM EST documented as of this encounter Care Teams Transfer Pumper Relationship Specialty Start Date End Date Mirella Sarkar FNP [address] [place] [address] PCP - General Family Medicine 06/20/22 documented as of this encounter
--- OUTSIDE RECORDS SUMMARY | 2024-12-20 12:39 | XMS_ITS | Encounter Summary ---
Author Organization [employer] Address [address] [facility] 7t [place] [address] Care Team Providers Care Food Service Kitchen Supervisor Name Role Phone [facility] Primary Care Provider Reason for Visit * Reason Comments Med Refill Encounter Details Date Type Department Care Team ([facility] st Contact Info) Description 11/29/2024 Refill [facility] MEDICINE [address] [place], [place] [phone] [facility] [address] [place], [place] [phone] Other hyperlipidemia Social History Tobacco Use Types Packs/Day Years [...] Description 12/21/2024 1:00 PM EST Clinical Support [facility] DIABETES/NUTRITION [address] [place] [address] [place] [address] 01/07/2025 9:30 AM EDT Office Visit [facility] MEDICINE [address] [place] [address] Mirella Sarkar FNP [address] [place] [address] documented as of this encounter Visit Diagnoses Diagnosis Other hyperlipidemia documented in this encounter Additional Health Concerns Assessment Noted Time PHQ-9 Depression Total Score: 0 03/31/20 24 11:14 AM EDT documented as of this encounter Care Teams Food Service Kitchen Supervisor Relationship Specialty Start Date End Date Mirella Sarkar FNP [address] [place] [id number] PCP - General Family Medicine 06/20/22 documented as of this encounter
--- OUTSIDE RECORDS SUMMARY | 2024-12-20 12:39 | XMS_ITS | Clinical Summary ---
Author Organization [employer] Address [address] [place] [address] 7t [place] [address] Care Team Providers Care Intertype Operator Name Role Phone Mello [facility] Primary Care Provider [phone] Allergies No known active allergies Medications albuterol 108 (90 Base) MCG/ACT inhalerIndication s:Shortness of breath INHALE 2 PUFFS BY MOUTH FOUR TIMES DAILY NEEDED FOR WHEEZING 8.5 g 1 023 Active Respiratory Therapy Supplies (Nebulizer Mask Adult) miscIndications:M oderate persistent asthma without complication 1 each every 4 (four) hours if needed (sob/wheezing) . 1 each 023 Active naproxen (Naprosyn) 375 MG tablet TAKE 1 TABLET BY MOUTH TWICE DAILY WITH FOOD NEEDED 60 tablet 024 Active docusate sodium (Colace) 100 MG capsuleIndication s:Constipation, unspecified constipation type TAKE 1 CAPSULE BY MOUTH EVERY MORNING 90 capsule 3 024 Active polyethylene glycol, PEG, 3350 (Glycolax) 17 GM/SCOOP powderIndications :Constipation, unspecified constipation type TAKE 17 GM MIXED IN 8 OUNCES OF WATER ONCE DAILY 510 g 2 024 Active lisinopril-hydroC HLOROthiazide 20-25 MG tabletIndications :Essential hypertension TAKE 1 TABLET BY MOUTH EVERY DAY 90 tablet 1 024 Active Additional Information Patient not taking.Reported on 08/26/2024 ergocalciferol (Vitamin D-2) 1.25 MG (16285 UT) capsule 1 capsule by mouth once a month 4 capsule 11 024 Active loratadine (Claritin) 10 MG tabletIndications :Seasonal allergies TAKE 1 TABLET BY MOUTH EVERY DAY 90 tablet 1 024 Active amLODIPine (Norvasc) 5 MG tablet TAKE 1 TABLET BY MOUTH EVERY MORNING 90 tablet 1 024 Active Ferrous Sulfate (iron) 325 (65 Fe) MG tablet TAKE 1 TABLET BY MOUTH ONCE DAILY WITH ORANGE JUICE 90 tablet 3 024 Active Fluticasone-Salme terol 250-50 MCG/ACT aerosol powder INHALE 1 PUFF BY MOUTH TWICE DAILY RINSE MOUTH AFTER USING. 60 each 1 025 Active Calcium Carb-Cholecalcife rol 600-10 MG-MCG tablet Take 1 tablet by mouth 2 times daily. 180 tablet 1 025 Active rosuvastatin (Crestor) 20 MG tabletIndications :Other hyperlipidemia TAKE 1 Tablet BY MOUTH EVERY DAY FOR CHOLESTEROL 90 tablet 3 025 Active rosuvastatin (Crestor) 20 MG tabletIndications :Other hyperlipidemia TAKE 1 TABLET BY MOUTH EVERY DAY. FOR CHOLESTEROL 90 tablet 3 024 2024 Discontinued Active Problems Problem Noted Date Diagnosed Date Infectious colitis 09/13/2024 Assessment & Plan (09/13/2024 2:14 PM EST): Physical exam wnl D/t persistent symptoms since hospitalization including abdominal pain and small volume, yellow stools will treat for infectious colitis Patient will take ciprofloxacin 500 mg BID x 5 days Side effects reviewed Pt will f/u with GI, referral placed Referral placed to Nutrition per pt request Normocytic anemia 09/13/2024 Assessment & Plan (09/13/2024 2:14 PM EST): Will obtain CBC today to monitor H/H Persistent microscopic hematuria 09/10/2023 Assessment & Plan (01/04/2024 3:15 PM EDT): Continue to follow per urology Healthcare maintenance 05/09/2023 Overview (01/04/2024): Mammo: 11/2023 negative Pap: Discontinued s/p hysterectomy for for heavy bleeding C-scope: 2018, negative, repeat 2028 BMD: 03/2022. Osteopenia. FRAX 12.7%--repeat ordered today Hypercholesterolemia 01/30/2023 Overview (01/04/2024): Rosuvastatin 20mg daily Assessment & Plan (01/04/2024 3:12 PM EDT): Well controlled Continue current regimen Disseminated idiopathic skeletal hyperostosis Osteopenia 09/08/2015 Overview (05/09/2023): ?? Takes calcium and Vitamin D supplementation Assessment & Plan (01/04/2024 3:12 PM EDT): Due for repeat BMD 03/2024 Moderate persistent asthma 09/08/2015 Overview (01/04/2024): Albuterol PRN Advair Assessment & Plan (01/04/2024 3:12 PM EDT): Well controlled Continue current regimen Essential hypertension 09/08/2015 Overview (01/04/2024): Lisinopril-hydrochlorothiazide 20-25mg Amlodipine 5mg Maintenance: - Aerobic exercise to reduce BP. Initial goal of 30 min walk 3-5x/week. Increase as tolerated. - low-sodium diet (goal: <2g/day) and heart healthy diet such as DASH to reduce BP and prevent ASCVD. - Home BP monitoring 1-2 x day with goal of <140/90. - Seek immediate medical attention for chest pain, palpitations, SOB, syncope, or sudden changes in mental status. - Do not change or discontinue current prescriptions without first consulting health care provider Assessment & Plan (09/13/2024 2:17 PM EST): Pt reports she is taking her Lisinopril-hydrochlorothiazide 20-25 mg as prescribed and her amlodipine 5 mg and tolerating well BP at goal <140/90 Assessment & Plan (01/04/2024 3:11 PM EDT): Well controlled Continue current regimen Assessment & Plan (09/10/2023 12:39 PM EST): - Continue current regimen - Patient agrees to start monitoring BP every other day - Complete routine labs Assessment & Plan (05/09/2023 1:37 PM EDT): ?? START amlodipine 5mg daily ?? Continue lisinopril/hctz ?? Complete previously ordered labs ?? 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 Obesity 09/08/2015 Encounters Date Type Department Care Team Description 12/07/2024 11:30 AM EST Clinical Support [facility] DIABETES/NUTRITION [address] [place] [address] Infectious colitis (Primary Dx) 12/07/2024 Travel 11/29/2024 Refill [facility] MEDICINE [address] [place] [address] [facility] Other hyperlipidemia 11/23/2024 11:00 AM EST Clinical Support [facility] DIABETES/NUTRITION [address] [place] [address] Infectious colitis (Primary Dx) 11/23/2024 Travel 11/01/2024 Refill [facility] MEDICINE [address] [place] [address] [facility] 10/31/2024 Refill [facility] MED[facility]INE 230 [facility] [place] [address] [facility] 10/26/2024 10:30 AM EST Nutrition [facility] DIABETES/NUTRITION [address] [place] [address] Infectious colitis 10/26/2024 Travel 10/10/2024 Refill [facility] MEDICINE [address] [place] [address] [facility] 09/27/2024 10:15 AM EST Immunization [facility] MEDICINE [address] [place] [address] Encounter for immunization (Primary Dx) 09/27/2024 Travel from Last 3 Months Immunizations Name Administration Dates Next Due Influenza High-dose Quadriva lent Preservative Free 09/05/2023,09/05/2021,07/19/2020 Influenza injectable quadriv alent IIV4 with preservative 09/08/2015 Influenza injectable quadriv alent preservative free 08/02/2019,08/20/2016 Influenza, High Dose Seasona l, Preservative Free 09/27/2024,08/12/2018,08/18/2017 Influenza, IIV3, injectable 08/17/2014, 0 Influenza, Split (incl. viviana fied surface antigen) 08/12/2013,08/19/2012 Pfizer Covid-19 Vaccine 12+ 09/27/2024, 3 Pfizer Covid-19 Vaccine 12+ Bivalent 01/30/2023 Pneumococcal Conjugate PCV 13 09/08/2015 Pneumococcal Polysaccharide PPSV23 05/07/2017, TD (adult), 2 Lf tetanus tox oid, preservative free, adsorbed 04/04/2022,07/08/2008,12/24/2005 Tdap 03/24/2012 Zoster, Recombinant 05/18/2020,01/05/2020 Zoster, live 09/08/2015 Family History Medical History Relation Name Comments Breast cancer Other Cousin Breast cancer Sister Colon cancer Neg Hx Relation Name Status Comments Other Sister Social History Tobacco Use Types Packs/Day Years Used Date Smoking Tobacco: Never Passive Smoke Exposure: Never Smokeless Tobacco: Never Tobacco Cessation:Counseling Given: Not Answered Alcohol Use Standard Drinks/Week Comments Never 0 [...] Orientation Straight 08/26/2022 10 :14 AM EDT Last Filed Vital Signs Vital Sign Reading Time Taken Comments Blood Pressure 140/75 09/13/2024 1:08 PM EST Pulse 108 09/13/2024 1:08 PM EST Temperature 35.7 ??C (96.3 ??F) 09/13/2024 1:08 PM ES T Respiratory Rate 18 09/13/2024 1:08 PM EST Oxygen Saturation 96% 12/29/2023 10:41 AM EST Inhaled Oxygen Concentration - - Weight 65.1 kg (143 lb 9.6 oz) 10/26/2024 12:34 PM EST Height 142.2 cm (4' 8 ) 10/26/2024 12:34 PM EST Body Mass Index 32.19 10/26/2024 12:34 PM EST Plan of Treatment Upcoming Encounters Date Type Department Care Team (Late st Contact Info) Description 12/21/2024 1:00 PM EST Clinical Support [facility] DIABETES/NUTRITION [address] [place] [address] Bailey Ford, ANUEL 230 [place] [address] 01/07/2025 9:30 AM EDT Office Visit [facility] MEDICINE [address] [place] [address] Mirella Sarkar FNP [address] [place] [address] Health Maintenance Due Date Last Done Comments CT Colonography 1949 FIT DNA/Cologuard 1950 Sigmoidoscopy 1950 Hepatitis C Screening 1967 RSV Patients and Patients Aged 60 years or older (1 - 1-dose 75+ series) 2024 FIT 05/01/2024 05/01/2023 FOBT 05/01/2024 05/01/2023 Alcohol/Substance Use Screening 03/31/2025 03/31/2024 Depression Screening 03/31/2025 03/31/2024, 03/31/20 24 SDOH Screening 03/31/2025 03/31/2024 Tobacco Screening 09/13/2025 09/13/2024 Lipid Panel 04/08/2029 04/08/2024, 08/27, 09/05/2021 Colonoscopy 08/05/2029 08/05/2024, 07/06/2019 Colorectal Cancer Screening 08/05/2029 DTaP/Tdap/Td Vaccines (3 - Td or Tdap) 04/04/2032 04/04/2022, 03/24/2012, 07/08/2008, Additional history exists Pneumococcal Vaccine: 50+ Years Completed 05/07/2017, 09/08/2015, 03/24/2012 Zoster Vaccines Completed 05/18/2020, 12/25, 09/08/2015 COVID-19 Vaccine Completed 09/27/2024, , 01/30/2023, Additional history exists Influenza Vaccine Completed 09/27/2024, , 09/05/2021, Additional history exists HIB Vaccines Aged Out No longer eligi ble based on patient's age to complete this topic HPV Vaccines Aged Out No longer eligi ble based on patient's age to complete this topic Hepatitis A Vaccines Aged Out No long er eligible based on patient's age to complete this topic Hepatitis B Vaccines Aged Out No long er eligible based on patient's age to complete this topic IPV Vaccines Aged Out No longer eligi ble based on patient's age to complete this topic Meningococcal Vaccine Aged Out No jose antonio johnathan eligible based on patient's age to complete this topic RSV under 20 months Aged Out No longe r eligible based on patient's age to complete this topic Rotavirus Vaccines Aged Out No longer eligible based on patient's age to complete this topic Procedures Procedure Name Priority Date/Time Associated Diagnosis Comments COLONOSCOPY Routine 08/05/2024 LIPID PANEL, STANDARD Routine 04/08/2024 11:53 AM EDT Essential hypertension FECAL GLOBIN BY IMMUNOCHEMISTRY Routine 05/01/2023 3:09 PM EDT from Last 3 Months or Most Recently Relevant to Health Maintenance Results * (ABNORMAL) Colonoscopy (08/05/2024) Colonoscopy Abnormal( A) Normal Comment:repeat 5 years [facility] Provider MD HEALTH MAINTENANCE Final Result * Lipid Panel, Standard (04/08/2024 11:53 AM EDT) Triglycerides 78 <150 mg/dL [facility] Comment:Desirable Triglyceri de: less than 150 mg/dLBorderline High Triglyceride 150-199 mg/dLHigh Triglyceride: 200-499 mg/dLVery High Triglyceride: greater than or equal to 5OO mg/dL Cholesterol 116 <200 mg/dL [facility] Comment:Desirable Cholestero l: less than 200 mg/dLBorderline High Cholesterol: 200-239 mg/dLHigh Cholesterol: greater than 239 mg/dL LDL Cholesterol Calculated 45 <100 mg/dL [facility] Comment:Desirable LDL: less than 100 mg/dLNear Optimal/Above Optimal LDL: 110- 129 mg/dLBorderline High LDL: 130-159 mg/dLHigh LDL: 160-189 mg/dLVery High LDL: greater than or equal to 190 mg/dL HDL Cholesterol 56 >40 mg/dL [facility] Comment:Desirable HDL: great er than 40 mg/dL Note: This HDL assay may give artificially low results in patients with liver disease. Blood Venous blood specimen / Unknown 04/08/2024 11:53 AM EDT 04/08/2024 3:49 PM EDT [facility] BLOOD ORDERABLES Final Re sult Performing Organization Address [facility]/ZIP Co de Phone Number [facility] [address] [place] [address] [phone] * Fecal Globin by Immunochemistry (05/01/2023 3:09 PM EDT) Fecal Globin By Immunochemistry SEE NOTE [facility] Comment: ??FECAL GLOBIN BY IMMUNOCHEMISTRY ?Micro Number: ?[id number] ??Test Status: ? Final ??Specimen Source: ?? Insure (tm) fobt test card ??Specimen Quality: ??Adequate ??Fecal Globin: ?Not Detected NO COLLECTION DATE RECEIVED. WE HAVE USED THE DATE THE SPECIMEN WAS RECEIVED BY THIS LABORATORY THE COLLECTION DATE. IF THIS IS INCORRECT, PLEASE CONTACT CLIENT SERVICES. PHONE NUMBER: 04/28/2023 1:5 7 PM EDT Narrative [facility] - 05/01/2023 3:09 PM EDT COLLECTION REQUIREMENTS NOT MET. PATIENT ADVISED TO RETURN. [facility] BODY FLUIDS AND STOOLS OR DERABLES Final Result Performing Organization Address [facility] Co de Phone Number [facility] [address] [place] [address] [facility] [address] [place] [address] from Last 3 Months or Most Recently Relevant to Health Maintenance Insurance [facility] Care Teams Intertype Operator Relationship Specialty Start Date End Date Mirella Sarkar FNP [address] [place] [phone] PCP - General Family Medicine 06/20/22
--- OUTSIDE RECORDS SUMMARY | 2024-12-20 12:39 | XMS_ITS | Encounter Summary ---
Author Organization [employer] Address [address] [facility] 7t [place] [address] Care Team Providers Care Lobby Attendant Name Role Phone Mello [facility] Primary Care Provider [phone] Encounter Details Date Type Department Care Team (Latest Contact Info) Description 12/07/2024 Travel Social History Tobacco Use Types Packs/Day Years [...] Description 12/21/2024 1:00 PM EST Clinical Support [facility] DIABETES/NUTRITION [address] [place] [address] Bailey Ford, ANUEL [address] [place] [address] 01/07/2025 9:30 AM EDT Office Visit [facility] MEDICINE [address] [place] [address] Mirella Sarkar FNP [address] [place] [address] documented as of this encounter Visit Diagnoses Not on filedocumented in this encounter Additional Health Concerns Assessment Noted Time PHQ-9 Depression Total Score: 0 03/31/20 24 11:14 AM EDT documented as of this encounter Care Teams Lobby Attendant Relationship Specialty Start Date End Date Mirella Sarkar FNP [address] [place] [address] PCP - General Family Medicine 06/20/22 documented as of this encounter
--- OUTSIDE RECORDS SUMMARY | 2024-12-20 12:39 | XMS_ITS | Encounter Summary ---
Author Organization [employer] Address [address] [facility] 7t [place] [address] Care Team Providers Care Consumer Relations Specialist Name Role Phone Mello [facility] Primary Care Provider [phone] Encounter Details Date Type Department Care Team (Latest Contact Info) Description 11/23/2024 Travel Social History Tobacco Use Types Packs/Day [...] Description 12/21/2024 1:00 PM EST Clinical Support [facility] DIABETES/NUTRITION [address] [place] [address] Bailey Ford, ANUEL [address] [place] [address] 01/07/2025 9:30 AM EDT Office Visit [facility] MEDICINE [address] [place] [address] Mirella Sarkar FNP [address] [place] [address] documented as of this encounter Visit Diagnoses Not on filedocumented in this encounter Additional Health Concerns Assessment Noted Time PHQ-9 Depression Total Score: 0 03/31/20 24 11:14 AM EDT documented as of this encounter Care Teams Consumer Relations Specialist Relationship Specialty Start Date End Date Mirella Sarkar FNP [address] [place] [address] PCP - General Family Medicine 06/20/22 documented as of this encounter
== END 2024-12-20 11:37 | disposition home or self-care (01) ==
PROVIDERS: PCP Registered Nurse; Visit Provider Internal Medicine Gastroenterology
DX: R10.84 Generalized abdominal pain (principal); D64.9 Anemia, unspecified
CPT/HCPCS: 99214

== ENCOUNTER → 2024-12-20 10:59 | Outpatient (BNVA) | payer OTHER, SELFPAY | PROVIDERS: PCP Registered Nurse; Visit Provider Internal Medicine Gastroenterology | DX: R10.84 Generalized abdominal pain (principal); D64.9 Anemia, unspecified | CPT/HCPCS: 99212 ==

== ENCOUNTER 2025-01-10 09:16 | Outpatient (REF) | payer OTHER, SELFPAY ==
--- OUTSIDE RECORDS SUMMARY | 2025-01-10 09:58 | XMS_ITS | Encounter Summary ---
Author Organization [email or web address] Address 75 [facility] 7t [place] [address] Care Team Providers Care Die Maker Apprentice Name Role Phone Mello Mirella HUMANITIES PROFESSOR Primary Care Provider [phone] Encounter Details Date Type Department Care Team (Late st Contact Info) Description 02/04/2024 Orders Only [facility] MEDICINE [address] [place], [place] [phone] Provider, MD Frida Social History Tobacco Use [...] Care Team (Late st Contact Info) Description 01/25/2025 1:00 PM EDT Clinical Support [facility] DIABETES/NUTRITION [address] [place] [address] [place] [address] documented as of this encounter Procedures Procedure Name Priority Date/Time Associated Diagnosis Comments HM COLONOSCOPY Routine 07/06/2019 8:37 AM EDT documented in this encounter Results * Hm Colonoscopy (07/06/2019 8:37 AM EDT) us Historical Provider HEALTH MAINTENANCE Final Result documented in this encounter Visit Diagnoses Not on filedocumented in this encounter Additional Health Concerns Assessment Noted Time PHQ-9 Depression Total Score: 0 09/05/20 23 11:38 AM EST documented as of this encounter Care Teams Die Maker Apprentice Relationship Specialty Start Date End Date Mirella Sarkar FNP [address] [place] [address] PCP - General Family Medicine 06/20/22 documented as of this encounter
--- OUTSIDE RECORDS SUMMARY | 2025-01-10 09:58 | XMS_ITS | Encounter Summary ---
Author Organization [email or web address] Address 75 [facility] 7t [place] [address] Care Team Providers Care Criminal Defense Attorney Name Role Phone Quincy Castleberry [employer] Primary Care Provider Encounter Details Date Type Department Care Team ([facility] st Contact Info) Description 10/17/2023 Orders Only [facility] CHC MED & PEDS [address] [place] [address] Abby Vale LPN Social History Tobacco Use [...] Description 01/25/2025 1:00 PM EDT Clinical Support [facility] DIABETES/NUTRITION [address] [place] [address] [place] [address] documented as of this encounter Visit Diagnoses Not on filedocumented in this encounter Additional Health Concerns Assessment Noted Time PHQ-9 Depression Total Score: 0 09/05/20 23 11:38 AM EST documented as of this encounter Care Teams Criminal Defense Attorney Relationship Specialty Start Date End Date Mirella Sarkar FNP [address] [place] [address] PCP - General Family Medicine 06/20/22 documented as of this encounter
--- OUTSIDE RECORDS SUMMARY | 2025-01-10 09:58 | XMS_ITS | Clinical Summary ---
Author Organization [employer] Address [address] [place] [address] 7t [place] [address] Care Team Providers Care Coding Technician Name Role Phone Mello [facility] Primary Care Provider [phone] Allergies No known active allergies Medications albuterol 108 (90 Base) MCG/ACT inhalerIndication s:Shortness of breath INHALE 2 PUFFS BY MOUTH FOUR TIMES DAILY NEEDED FOR WHEEZING 8.5 g 1 023 Active Respiratory Therapy Supplies (Nebulizer Mask Adult) miscIndications:M oderate persistent asthma without complication 1 each every 4 (four) hours if needed (sob/wheezing) . 1 each 023 Active docusate sodium (Colace) 100 MG capsuleIndication [...] EVERY DAY 90 tablet 1 024 Active ergocalciferol (Vitamin D-2) 1.25 MG (46860 UT) capsule 1 capsule by mouth once [...] FOR CHOLESTEROL 90 tablet 3 025 Active naproxen (Naprosyn) 375 MG tablet TAKE 1 TABLET BY MOUTH TWICE DAILY WITH FOOD NEEDED 60 tablet 025 Active naproxen (Naprosyn) 375 MG tablet TAKE 1 TABLET BY MOUTH TWICE DAILY WITH FOOD NEEDED 60 tablet 024 2024 Discontinued(R eorder (will not trigger notification to Pharmacy)) Active Problems Problem Noted Date Diagnosed Date [...] Encounters Date Type Department Care Team Description 01/09/2025 Refill [facility] MED & PEDS [address] [place] [address] Lana Marcelino MD Essential hypertension 01/07/2025 9:30 AM EDT Office Visit [facility] [place] [address] Mirella Sarkar FNP Osteopenia, unspecified location (Primary Dx) 01/07/2025 Travel 01/06/2025 Refill [facility] MED & PEDS [address] [place] [address] Mirella Sarkar FNP 12/31/2024 Patient Outreach [facility] MEDICINE [address] [place] [address] Mirella Sarkar FNP Pre-visit Planning ((Unable to reach for PVP screening or LVM)) 12/21/2024 1:00 PM EST Clinical Support [facility] DIABETES/[place] [address] Infectious colitis (Primary Dx) 12/21/2024 Travel 12/07/2024 11:30 AM EST Clinical Support [facility] DIABETES/[place] [address] Infectious colitis (Primary Dx) 12/07/2024 Travel 11/29/2024 Refill [facility] MEDICINE [address] [place] [address] Mirella Sarkar FNP Other hyperlipidemia 11/23/2024 11:00 AM EST Clinical Support [facility] DIABETES/[place] [address] Infectious colitis (Primary Dx) 11/23/2024 Travel 11/01/2024 Refill [facility] MED[facility]INE [address] [facility] [place] [address] [facility] 10/31/2024 Refill [facility] MED[facility]INE [address] [facility] [place] [address] [facility] 10/26/2024 10:30 AM EST Nutrition [facility] DIABETES/NUTRITION [address] [facility] [place] [address] Infectious colitis 10/26/2024 Travel from Last 3 Months Immunizations Name [...] Date Recorded Patient Health Questionnaire-9 Score 0 01/07/2025 Patient Health Questionnaire-9 Score 0 01/07/2025 Last PHQ-9: Questionnaire Data Not on file 0 01/07/2025 Housing Stability Answer Date Recorded What is your housing situation today? I have osfie joe 03/31/[address] you [...] Date Recorded Patient Health Questionnaire-2 Score 0 01/07/2025 Internet Access Answer Date Recorded Internet Access Q1 Yes 01/07/2025 Internet Access Q2 Not on file 01/07/2025 Comments Unknown Sex and Gender Information Value Date Recorded Sex Assigned at Female 08/26/2022 10:14 AM EDT Legal Sex Female 10:14 AM EDT Gender Identity Female 08/26/2022 10:14 AM EDT Sexual Orientation Straight 08/26/2022 10 :14 AM EDT Last Filed Vital Signs Vital Sign Reading Time Taken Comments Blood Pressure 110/70 01/07/2025 10:01 AM EDT Pulse 80 01/07/2025 9:19 AM EDT Temperature 36.5 ??C (97.7 ??F) 01/07/2025 9:19 AM ED T Respiratory Rate 17 01/07/2025 9:19 AM EDT Oxygen Saturation 96% 12/29/2023 10:41 AM EST Inhaled Oxygen Concentration - - Weight 63.6 kg (140 lb 2 oz) 01/07/2025 9:19 AM EDT Height 142 cm (4' 7.91 ) 01/07/2025 9:19 AM EDT Body Mass Index 31.52 01/07/2025 9:19 AM EDT Plan of Treatment Upcoming Encounters Date Type Department Care Team (Late st Contact Info) Description 01/25/2025 1:00 PM EDT Clinical Support [facility] DIABETES/NUTRITION [address] [place] [address] [place] [address] Health Maintenance Due Date Last Done Comments CT Colonography 1950 FIT DNA/Cologuard 1950 Sigmoidoscopy 1950 Hepatitis C Screening 1967 RSV Patients and Patients Aged 60 years or older (1 - 1-dose 75+ series) 2024 FIT 05/01/2024 05/01/2023 FOBT 05/01/2024 05/01/2023 Alcohol/Substance Use Screening 01/07/2026 01/07/2025 Depression Screening 01/07/2026 01/07/2025, 01/08/20 25 SDOH Screening 01/07/2026 01/07/2025 Tobacco Screening 01/07/2026 01/07/2025 Lipid Panel 04/08/2029 04/08/2024, 08/27, 09/05/2021 Colonoscopy [...] Colonoscopy Abnormal( A) Normal Comment:repeat 5 years Historical Provider MD HEALTH MAINTENANCE Final Result * Lipid Panel, Standard (04/08/2024 11:53 AM EDT) Triglycerides 78 <150 mg/dL [facility] Comment:Desirable Triglyceri de: less than 150 mg/dLBorderline High Triglyceride 150-199 mg/dLHigh Triglyceride: 200-499 mg/dLVery High Triglyceride: greater than or equal to 5OO mg/dL Cholesterol 116 <200 mg/dL [facility] Comment:Desirable Cholestero l: less than 200 mg/dLBorderline High Cholesterol: 200-239 mg/dLHigh Cholesterol: greater than 239 mg/dL LDL Cholesterol Calculated 45 <100 mg/dL [facility] Comment:Desirable LDL: less than 100 mg/dLNear Optimal/Above Optimal LDL: 110- 129 mg/dLBorderline High LDL: 130-159 mg/dLHigh LDL: 160-189 mg/dLVery High LDL: greater than or equal to 190 mg/dL HDL Cholesterol 56 >40 mg/dL [facility] Comment:Desirable HDL: great er than 40 mg/dL Note: This HDL assay may give artificially low results in patients with liver disease. Blood Venous blood specimen / Unknown 04/08/2024 11:53 AM EDT 04/08/2024 3:49 PM EDT [facility] ENTER[employer]ISE [employer]D ARCHITECT LAB BLOOD ORDERABLES Final Re sult Performing Organization Address City/[facility]/ZIP Co de Phone Number [facility] [address] [place] [address] [phone] * Fecal Globin by Immunochemistry (05/01/2023 3:09 PM EDT) Fecal Globin By Immunochemistry SEE NOTE [facility] Comment: ??FECAL GLOBIN BY IMMUNOCHEMISTRY ?Micro Number: ?[id number] ??Test Status: ? Final ??Specimen Source: ?? [...] REQUIREMENTS NOT MET. PATIENT ADVISED TO RETURN. [facility] LAB BODY FLUIDS AND STOOLS OR DERABLES Final Result Performing Organization Address City/[facility] Co de Phone Number [facility] [address], [place] [address] Couple [facility] [address] [place] [address] from Last 3 Months or Most Recently Relevant to Health Maintenance Insurance [facility] Care Teams Coding Technician Relationship Specialty Start Date End Date DenverMirella [facility] [address] [place] [address] PCP - General Family Medicine 06/20/22
--- OUTSIDE RECORDS SUMMARY | 2025-01-10 09:58 | XMS_ITS | Encounter Summary ---
Author Organization [employer] Address 75 [facility] 7t [place] [address] Care Team Providers Care Supervisor Bindery Name Role Phone [place] [facility] Primary Care Provider [phone] Encounter Details Date Type Department Care Team ([facility] st Contact Info) Description 01/07/2025 9:30 AM EDT Office Visit [facility] MEDICINE [address] [place], [place] [phone] Cassel[place] [facility] [address] [place], [place] [phone] Osteopenia, unspecified location (Primary Dx) Social History Tobacco Use Types [...] AM EDT documented as of this encounter Last Filed Vital Signs Vital Sign Reading Time Taken Comments Blood Pressure 110/70 01/07/2025 10:01 AM EDT Pulse 80 01/07/2025 9:19 AM EDT Temperature 36.5 ??C (97.7 ??F) 01/07/2025 9:19 AM ED T Respiratory Rate 17 01/07/2025 9:19 AM EDT Oxygen Saturation - - Inhaled Oxygen Concentration - - Weight 63.6 kg (140 lb 2 oz) 01/07/2025 9:19 AM EDT Height 142 cm (4' 7.91 ) 01/07/2025 9:19 AM EDT Body Mass Index 31.52 01/07/2025 9:19 AM EDT documented in this encounter Plan of Treatment Upcoming Encounters Date Type Department Care Team (Late st Contact Info) Description 01/25/2025 1:00 PM EDT Clinical Support [facility] DIABETES/NUTRITION [address] [place] [address] [place] [address] Scheduled Orders Name Type Priority Associated Diagnoses Orde r Schedule Vitamin D, 25-Hydroxy, Total, Immunoassay Lab Routine Osteopenia, unspecified location Expected: 01/07/2025 (Approximate), Expires: 01/07/2026 Lipid Panel, Standard Lab Routine Osteopenia, unspecified location Expected: 01/07/2025 (Approximate), Expires: 01/07/2026 Comprehensive Metabolic Panel Lab Routine Osteopenia, unspecified location Expected: 01/07/2025 (Approximate), Expires: 01/07/2026 CBC auto differential Lab Routine Osteopenia, unspecified location Expected: 01/07/2025 (Approximate), Expires: 01/07/2026 Ferritin Lab Routine Osteopenia, unspecified location Expected: 01/07/2025 (Approximate), Expires: 01/07/2026 Iron And Total Iron Binding Capacity Lab Routine Osteopenia, unspecified location Expected: 01/07/2025, Expires: 01/07/2026 documented as of this encounter Visit Diagnoses Diagnosis Osteopenia, unspecified location- Primary documented in this encounter Additional Health Concerns Assessment Noted Time PHQ-9 Depression Total Score: 0 01/08/20 25 9:22 AM EDT documented as of this encounter Care Teams Supervisor Bindery Relationship Specialty Start Date End Date Mirella Sarkar FNP [address] [place] [address] PCP - General Family Medicine 06/20/22 documented as of this encounter
--- OUTSIDE RECORDS SUMMARY | 2025-01-10 09:58 | XMS_ITS | Encounter Summary ---
Author Organization [employer] Address 75 [facility] 7t [place] [address] Care Team Providers Care Head Piece Assembler Name Role Phone Mello [facility] Primary Care Provider [phone] Encounter Details Date Type Department Care Team (Late st Contact Info) Description 10/30/2022 Orders Only [facility] CHC MED & PEDS [address] [place] [address] Abby Vale LPN Social History Tobacco Use [...] Description 01/25/2025 1:00 PM EDT Clinical Support [facility] DIABETES/NUTRITION [address] [place] [address] [place] [address] documented as of this encounter Procedures Procedure Name Priority Date/Time Associated Diagnosis Comments BI MAMMOGRAM SCREENING TOMOSYNTHESIS BILATERAL Routine 11/06/2022 10:30 AM EST documented in this encounter Results * BI Mammogram Screening Tomosynthesis Bilateral (11/06/2022 10:30 AM EST) Anatomical Region Laterality Modality Breast Bilateral Mammography 11/06/2022 10:3 0 AM EST Narrative 11/07/2022 4:12 PM EST ? [facility] ? [address] ?[place] [address] ? Mammography Report ? Signed ? Patient: Jean Jose,Heide ?MR#: [id number] ?? [id number] ? : 1950 ?Acct:[id number] ? Age/Sex: 72 / F ?ADM Date: 11/06/22 ? Loc: HO.MAMMO ? Attending Dr: Bridgett Braun ? Ordering Physician: Bridgett Braun ? Results: 2Benign F ?? indings ? Date of Service: 11/06/22 ?Follow Up: 1 Year From Orig ?? inal Mammogram ? Procedure(s): MM tomosynthesis screening BI ?? Accession Number(s): [id number] ? cc: Bridgett Braun ? EXAMINATION: ?? [...] 1609 ? DD/ 1030 ? TD/TT: ? Collection Systems Consultant: REEVES ? Procedure Note Donmonikater, Image - 11/07/2022 [facility] [address] [place], [place] [address] Mammography Report Signed Patient: Kalli Peoples LMR#: [id number] : 9Acct:[id number] Age/Sex: 72 / FADM Date: 11/06/22 Loc: HO.MAMMO Attending Dr: Bridgett Braun Ordering Physician: Bridgett BraunResults: 2Benign F indings Date of Service: 11/06/22Follow Up: 1 Year From Orig inal Mammogram Procedure(s): MM tomosynthesis screening BI Accession Number(s): [id number] cc: Bridgett Braun EXAMINATION: MM SCREENING DIGITAL BREAST TOMOSYNTHESIS, BILATERAL [...] in OV> 11/07/22 1609 DD/ 1030 TD/TT: Collection Systems Consultant: REEVES [facility] External Provider IMG BI PROCEDURES Final Result documented in this encounter Visit Diagnoses Not on filedocumented in this encounter Care Teams Head Piece Assembler Relationship Specialty Start Date End Date Mirella Sarkar FNP [address] [place] [address] PCP - General Family Medicine 06/20/22 documented as of this encounter
--- OUTSIDE RECORDS SUMMARY | 2025-01-10 09:58 | XMS_ITS | Encounter Summary ---
Author Organization [employer] Address [address] [facility] 7t [place] [address] Care Team Providers Care Mold Yarn Supervisor Name Role Phone Mello [facility] Primary Care Provider [phone] Encounter Details Date Type Department Care Team (Latest Contact Info) Description 01/07/2025 Travel Social History Tobacco Use Types Packs/Day [...] Support [facility] DIABETES/NUTRITION [address] [place] [address] [place] [address] documented as of this encounter Visit Diagnoses Not on filedocumented in this encounter Additional Health Concerns Assessment Noted Time PHQ-9 Depression Total Score: 0 01/08/20 25 9:22 AM EDT documented as of this encounter Care Teams Mold Yarn Supervisor Relationship Specialty Start Date End Date Mirella Sarkar FNP [address] [place] [address] PCP - General Family Medicine 06/20/22 documented as of this encounter
--- OUTSIDE RECORDS SUMMARY | 2025-01-10 09:58 | XMS_ITS | Encounter Summary ---
Author Organization [employer] Address 75 [facility] 7 [place] [address] Care Team Providers Care Sonogram Technician Name Role Phone [facility] Primary Care Provider [phone] Reason for Visit * Reason Comments Pre-visit Planning (Unable to reach for PVP screening or LVM) Encounter Details Date Type Department Care Team ([facility] st Contact Info) Description 12/31/2024 Patient Outreach [facility] MEDICINE [address] [place], [place] [phone] [facility] [address] [place], [place] [phone] Pre-visit Planning ((Unable to reach for PVP screening or LVM)) Social History Tobacco Use Types Packs/Day Years [...] enough money to get more: Never True 06/ 02/2024 Transportation Answer Date Recorded In the [...] as of this encounter Progress Notes * Amy Magdaleno - 12/31/2024 8:21 AM EST CC Amy placed outbound call to patient to complete pre-visit planning. No answer at this time. Patient name and were not confirmed. CC unable to leave a voice message. documented in this encounter Plan of Treatment Upcoming Encounters Date Type Department Care Team (Late st Contact Info) Description 01/25/2025 1:00 PM EDT Clinical Support [facility] DIABETES/NUTRITION [address] [place] [address] [place] [address] documented as of this encounter Visit Diagnoses Not on filedocumented in this encounter Additional Health Concerns Assessment Noted Time PHQ-9 Depression Total Score: 0 03/31/20 24 11:14 AM EDT documented as of this encounter Care Teams Sonogram Technician Relationship Specialty Start Date End Date Mirella Sarkar FNP [address] [place] [address] PCP - General Family Medicine 06/20/22 documented as of this encounter
--- OUTSIDE RECORDS SUMMARY | 2025-01-10 09:58 | XMS_ITS | Encounter Summary ---
Author Organization [employer] Address [address] [facility] 7t [place] [address] Care Team Providers Care Auto Transmission Mechanic Name Role Phone [facility] Primary Care Provider [phone] Reason for Visit * Reason Onset Date Comments Med Refill 01/06/2025 Encounter Details Date Type Department Care Team (Late st Contact Info) Description 01/06/2025 Refill [facility] CHC MED & PEDS [address] [place], [place] [phone] [facility] 230 [facility] [address] Social History Tobacco Use Types Packs/Day Years [...] AM EDT documented as of this encounter Miscellaneous Notes * Telephone Encounter - Abby Vale LPN - 01/06/2025 1:26 PM EDT Next appointment 01/07/25. documented in this encounter Plan of Treatment Upcoming Encounters Date Type Department Care Team (Late st Contact Info) Description 01/25/2025 1:00 PM EDT Clinical Support [facility] DIABETES/NUTRITION [address] [place] [address] [address], ANUEL [address] [place] [address] documented as of this encounter Visit Diagnoses Not on filedocumented in this encounter Additional Health Concerns Assessment Noted Time PHQ-9 Depression Total Score: 0 03/31/20 24 11:14 AM EDT documented as of this encounter Care Teams Auto Transmission Mechanic Relationship Specialty Start Date End Date Mirella Sarkar FNP [address] [place] [address] PCP - General Family Medicine 06/20/22 documented as of this encounter
--- OUTSIDE RECORDS SUMMARY | 2025-01-10 09:58 | XMS_ITS | Encounter Summary ---
Author Organization [employer] Address 75 [facility] 7t [place] [address] Care Team Providers Care Supervisor Sanding Name Role Phone [place] PROJECT MANAGER PROCESS DEVELOPMENT Primary Care Provider Reason for Visit * Reason Comments Med Refill Encounter Details Date Type Department Care Team ([facility] st Contact Info) Description 01/09/[address] [facility] CHC MED & PEDS [address] [place], [place] [phone] Lana Marcelino MD [address] [place], [place] [phone] Essential hypertension Social History Tobacco Use Types Packs/Day Years [...] Description 01/25/2025 1:00 PM EDT Clinical Support [facility] DIABETES/NUTRITION [address] [place] [address] [place] [address] documented as of this encounter Visit Diagnoses Diagnosis Essential hypertension Unspecified essential hypertension documented in this encounter Additional Health Concerns Assessment Noted Time PHQ-9 Depression Total Score: 0 01/08/20 25 9:22 AM EDT documented as of this encounter Care Teams Supervisor Sanding Relationship Specialty Start Date End Date Mirella Sarkar FNP [address] [place] [address] PCP - General Family Medicine 06/20/22 documented as of this encounter
--- OUTSIDE RECORDS SUMMARY | 2025-01-10 09:59 | XMS_ITS | Encounter Summary ---
Author Organization [employer] Address 75 [facility] 7t [place] [address] Care Team Providers Care Senior Programmer Name Role Phone [place] [facility] Primary Care Provider [phone] Encounter Details Date Type Department Care Team (Latest Contact Info) Description 12/21/2024 Travel Social History Tobacco Use Types Packs/Day [...] Description 01/25/2025 1:00 PM EDT Clinical Support [facility] DIABETES/NUTRITION [address] [place] [address] [place] [address] documented as of this encounter Visit Diagnoses Not on filedocumented in this encounter Additional Health Concerns Assessment Noted Time PHQ-9 Depression Total Score: 0 03/31/20 24 11:14 AM EDT documented as of this encounter Care Teams Senior Programmer Relationship Specialty Start Date End Date Mirella Sarkar FNP [address] [place] [address] PCP - General Family Medicine 06/20/22 documented as of this encounter
--- OUTSIDE RECORDS SUMMARY | 2025-01-10 09:59 | XMS_ITS | Encounter Summary ---
Author Organization [employer] Address [address] [facility] 7[address] [place] [address] Care Team Providers Care Recording Artist Name Role Phone Mello [facility] Primary Care Provider [phone] Encounter Details Date Type Department Care Team (Latest Contact Info) Description 12/21/2024 1:00 PM EST Clinical Support [facility] DIABETES/NUTRITION [address] [place], [place] [phone] Bailey Ford [address] [place] [address] Infectious colitis (Primary Dx) Social History Tobacco [...] Sign Reading Time Taken Comments Blood Pressure - - Pulse - - Temperature - - Respiratory Rate - - Oxygen Saturation - - Inhaled Oxygen Concentration - - Weight 64 kg (141 lb 3.2 oz) 12/23/2024 1:27 PM EST Height 142.2 cm (4' 8 ) 12/23/2024 1:27 PM EST Body Mass Index 31.66 12/23/2024 1:27 PM EST documented in this encounter Progress Notes * Bailey Ford, ANUEL - 12/21/2024 1:00 PM EST In Person Visit Medical Diagnosis: A09 Infectious colitis Anthropometrics: Ht:4' 8 (1.422 m), Wt:141 lb 3.2 oz (64 kg), BMI: Body mass index is 31.66 kg/m??. Assessment: Patient (Pt) accepted nutrition education assessment appointment with RD. RD took Pt's weight. Weight revealed a decrease by 2.5+ pounds since last appointment. [employer] mathematics professor, [place] [id number] took 24 hour recall/ typical daily intake from Pt. Intake revealed Pt is still not getting the understanding of eating low in carbohydrates for breakfast. RD went over breakfast ideas again, Pt then said she got the ideas now. Lunch and dinner, Pt isdoing well in following her Tailored made meal plan. Although, Pt mixed the portion controls for beans and rice. She had them swapped. RD suggested for rice to be at 1/3 cup and beans at 1/2 cup. Pt said she can do this. In addition, Pt is drinking sugary beverages still. RD gave suggestions, again, on sugar free beverages to have. Pt said also she can make these changes. Pt does like having her hot chocolate from [employer] chocolate mix. RD showed where Pt can get sugar free hot chocolate mix. Pt said she can do thisalso. All in all, Pt reports her stomach doing better; doing her best to follow her Tailored made meal plan, and changed out having sugar in her coffee and using stevia- Truvia instead. RD congratulated Pt on her hard work here. Pt is excited about her successes and RD encouraged her to continue in following her Tailored made meal plan. Pt said she will. A follow up appointment is in the first week of January 2025. Food Allergies: NKFA Exercise: Pt didn't say. [...] - 1 /day How much sugary beverages?: New: Coffee no long has sugar in it. Pt uses now Truvia- stevia. Old:Coffee, 1/2 - 1 cup Diet History: Breakfast: [place] muffin: one Real butter: 2 teaspoons Coffee: 1/2 cup Milk: 1/2 cup Truvis- stevia: 1-2 packets Snack: none Lunch: Tuna: 2 oz. Ketchup: 1+ tablespoons Whole grain crackers: 6 Fresh salad (lettuce & tomato): 1/2 - 1 cup EVOO: 1 tablespoon Water: 1+ cups Snack: Chocolate chip cookies: 3 Oliver juice: 1/2 cup Dinner: Rice: 1/2 cup Beans: 1/3 cup Meat/ protein (chicken): 3+ oz. 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 Nutrition Intervention: RD made suggestions above in this note. They are: keep to portion controls of rice and beans, low to no carbohydrate breakfasts, and sugar free hot chocolate. Pt agreed to work on these goals. Goals: Eat two carbohydrates for breakfast, lunch [...] control Lipid panel Provider: Bailey Ford RD, ISRA documented in this encounter Plan of Treatment Upcoming Encounters Date Type Department Care Team (Late st Contact Info) Description 01/25/2025 1:00 PM EDT Clinical Support [facility] DIABETES/NUTRITION [address] [place] [address] [place] [address] documented as of this encounter Visit Diagnoses Diagnosis Infectious colitis- Primary Infectious colitis, enteritis, and gastroenteritis documented in this encounter Additional Health Concerns Assessment Noted Time PHQ-9 Depression Total Score: 0 03/31/20 24 11:14 AM EDT documented as of this encounter Care Teams Recording Artist Relationship Specialty Start Date End Date Mirella Sarkar FNP [address] [place] [address] PCP - General Family Medicine 06/20/22 documented as of this encounter
--- OUTSIDE RECORDS SUMMARY | 2025-01-10 09:59 | XMS_ITS | Encounter Summary ---
Author Organization [employer] Address [address] [place] [address] [address] [place] [address] Care Team Providers Care Washhouse Hand Name Role Phone Mirella Sarkar [facility] Primary Care Provider [phone] Encounter Details Date Type Department Care Team (Late st Contact Info) Description 11/25/2022 Orders Only [facility] CHC MED & PEDS [address] [place] [address] Abby Vale LPN Social History Tobacco Use [...] Description 01/25/2025 1:00 PM EDT Clinical Support [facility] DIABETES/NUTRITION [address] [place] [address] [place] [address] documented as of this encounter Visit Diagnoses Not on filedocumented in this encounter Care Teams Washhouse Hand Relationship Specialty Start Date End Date Mirella Sarkar FNP [address] [place] [address] PCP - General Family Medicine 06/20/22 documented as of this encounter
[2025-01-10 11:23] LABS: MANUAL DIFF FLAG NO
[2025-01-10 11:36] LABS: Basophils Percent Auto 0.9 % (0-2); Eosinophils Absolute Auto 0.2 X10*3/uL (0.0-0.4); Eosinophils Percent Auto 5.2 % (0-4); Hematocrit 30.2 % (37.0-47.0); Hemoglobin 10.2 g/dl (12.0-16.0); Imm Gran Abs Auto 0.01 X10*3/uL (0.00-0.03); Imm Gran Pct Auto 0.2 % (0.0-0.4); Lymphocytes Percent Auto 43.6 % (20-40); Mean Corpuscular HGB Conc 33.8 g/dl (31.0-35.0); Mean Corpuscular Hemoglobin 31.9 pg (27.0-33.0); Mean Corpuscular Volume 94.4 fL (80.0-98.0); Mean Platelet Volume 10.9 fL (9.4-12.3); Monocytes Absolute Auto 0.4 X10*3/uL (0.1-1.2); Monocytes Percent Auto 8.8 % (2-11); Neutrophils Absolute Auto 1.9 x10*3/uL (2.0-8.3); Neutrophils Percent Auto 41.3 % (45-73); Platelet Count 179 X10*3/uL (160-400); Red Cell Distribution Width 12.6 % (11.0-16.0); White Blood Count 4.7 X10*3/uL (4.8-10.8)
[2025-01-10 12:17] LABS: Vitamin D 25-OH Total 39.8 ng/mL (>30)
[2025-01-10 12:29] LABS: Folate 13.3 ng/mL (> or = 4.0); Vitamin B12 544 pg/mL (200-900)
[2025-01-10 12:38] LABS: Ferritin 48 ng/mL (10-250)
[2025-01-10 13:08] LABS: Anion Gap 12 (12-20)
[2025-01-10 13:13] LABS: Alanine Aminotransferase 12 U/L (0-31); Albumin Level 3.9 g/dL (3.5-5.0); Alkaline Phosphatase 79 U/L (39-117); Aspartate Amino Transferase 20 U/L (5-31); Bilirubin Total 0.3 mg/dL (0.0-1.0); Blood Urea Nitrogen 30 mg/dL (9-16); Calcium 9.4 mg/dL (8.4-10.2); Carbon Dioxide 23 mmol/L (22-29); Chloride 111 mmol/L (96-108); Cholesterol 112 mg/dL (<200); Estimated Glomerular Filt Rate 51; Glucose Random 89 mg/dL (60-115); HDL Cholesterol 56 mg/dL (>40); Iron 57 mcg/dL (30-160); LDL Cholesterol Calculated 41 mg/dL (<100); Percent Iron Saturation 29 % (15-50); Potassium 4.2 mmol/L (3.3-5.1); Sodium 142 mmol/L (135-145); Total Iron Binding Capacity 199 mcg/dL (228-428); Total Protein 7.8 g/dL (6.5-8.0); Triglycerides 79 mg/dL (<150); Unsaturated Iron Binding 142 ug/dL
[2025-01-13 05:03] LABS: Zinc 58 mcg/dL (60-130)
[2025-01-13 16:18] LABS: Hematocrit 30.7 % (35.0-45.0); Hemoglobin 10.4 g/dL (11.7-15.5); MCH 32.2 pg (27.0-33.0); RBC 3.23 Million/uL (3.80-5.10); RDW 12.8 % (11.0-15.0)
== END 2025-01-10 09:17 | disposition home or self-care (01) ==
LOC: HO.HHCL 09:16
PROVIDERS: Internal Medicine Gastroenterology; Visit Provider Registered Nurse
DX: R10.84 Generalized abdominal pain (principal); D64.9 Anemia, unspecified; K75.81 Nonalcoholic steatohepatitis (NASH); M85.80 Other specified disorders of bone density and structure, unspecified site
CPT/HCPCS: 36415; 80053; 80061; 82306; 82607; 82728; 82746; 83020; 83540; 84630; 85014; 85018; 85025; 85041

== ENCOUNTER 2025-02-09 07:50 | Outpatient (AMB) | payer OTHER, SELFPAY ==
--- OUTSIDE RECORDS SUMMARY | 2025-02-09 07:54 | XMS_ITS | Encounter Summary ---
Author Organization [employer] Address [address] [facility] 7[address] [place] [address] Care Team Providers Care Specialist Employee Labor Relations Name Role Phone Mello Mirella [employer] Primary Care Provider [phone] Encounter Details Date Type Department Care Team (Late st Contact Info) Description 02/04/2024 Orders Only [facility] MEDICINE [address] [place], [place] [phone] Provider, MD Frida Social History Tobacco Use [...] as of this encounter Plan of Treatment Not on file documented as of this encounter Procedures Procedure [...] documented as of this encounter Care Teams Specialist Employee Labor Relations Relationship Specialty Start Date End Date Mirella Sarkar FNP [address] [place] [phone] PCP - General Family Medicine 06/20/22 documented as of this encounter
--- OUTSIDE RECORDS SUMMARY | 2025-02-09 07:54 | XMS_ITS | Clinical Summary ---
Author Organization [employer] Address [address] [place] [address] 7t [place] [address] Care Team Providers Care Wood Shingle Roofer Name Role Phone Mello [facility] Primary Care Provider [phone] Allergies No known active allergies Medications albuterol [...] EVERY MORNING 90 capsule 3 024 Active ergocalciferol (Vitamin D-2) 1.25 MG (72780 UT) capsule 1 capsule by mouth once a month 4 capsule 11 024 Active amLODIPine (Norvasc) 5 MG tablet TAKE 1 TABLET BY MOUTH EVERY MORNING 90 tablet 1 024 Active Ferrous Sulfate (iron) 325 (65 Fe) MG tablet TAKE 1 TABLET BY MOUTH ONCE DAILY WITH ORANGE JUICE 90 tablet 3 024 Active Calcium Carb-Cholecalcife rol 600-10 MG-MCG tablet Take 1 tablet by mouth 2 times daily. 180 tablet 1 025 Active rosuvastatin (Crestor) 20 MG tabletIndications :Other hyperlipidemia TAKE 1 Tablet BY MOUTH EVERY DAY FOR CHOLESTEROL 90 tablet 3 025 Active naproxen (Naprosyn) 375 MG tablet TAKE 1 TABLET BY MOUTH TWICE DAILY WITH FOOD NEEDED 60 tablet 025 Active lisinopril-hydroC HLOROthiazide 20-25 MG tabletIndications :Essential hypertension TAKE 1 TABLET BY MOUTH EVERY DAY 90 tablet 1 025 Active polyethylene glycol, PEG, 3350 (Glycolax) 17 GM/SCOOP powderIndications :Constipation, unspecified constipation type TAKE 17 GM MIXED IN 8 OUNCES OF WATER ONCE DAILY 510 g 2 025 Active Advair Diskus 250-50 MCG/ACT aerosol powder INHALE 1 PUFF BY MOUTH TWICE DAILY. RINSE MOUTH AFTER USE 60 each 1 025 Active loratadine (Claritin) 10 MG tabletIndications :Seasonal allergies TAKE 1 TABLET BY MOUTH EVERY DAY 90 tablet 1 025 Active polyethylene glycol, PEG, 3350 (Glycolax) 17 GM/SCOOP powderIndications :Constipation, unspecified constipation type TAKE 17 GM MIXED IN 8 OUNCES OF WATER ONCE DAILY 510 g 2 024 2024 Discontinued(R eorder (will not trigger notification to Pharmacy)) loratadine (Claritin) 10 MG tabletIndications :Seasonal allergies TAKE 1 TABLET BY MOUTH EVERY DAY 90 tablet 1 024 2024 Discontinued Fluticasone-Salme terol 250-50 MCG/ACT aerosol powder INHALE 1 PUFF BY MOUTH TWICE DAILY RINSE MOUTH AFTER USING. 60 each 1 025 2024 Discontinued Active Problems Problem Noted Date Diagnosed Date Normocytic anemia 09/13/2024 Assessment & Plan (09/13/2024 2:14 PM EST): Will obtain CBC today to monitor H/H Persistent microscopic hematuria 09/10/2023 Assessment & Plan (01/04/2024 3:15 PM EDT): Continue to follow per urology Healthcare maintenance 05/09/2023 Overview (01/04/2024): Mammo: 11/2023 negative Pap: Discontinued s/p hysterectomy for for heavy bleeding C-scope: 2019, negative, repeat 2028 BMD: 03/2022. Osteopenia. FRAX [...] Arthropathy of right shoulder 09/08/2015 Obesity 09/08/2015 Resolved Problems Problem Noted Date Diagnosed Date Resolved Date Infectious colitis 09/13/2024 Assessment & Plan (09/13/2024 2:14 PM EST): Physical exam wnl D/t persistent symptoms since hospitalization including abdominal pain and small volume, yellow stools will treat for infectious colitis Patient will take ciprofloxacin 500 mg BID x 5 days Side effects reviewed Pt will f/u with GI, referral placed Referral placed to Nutrition per pt request Encounters Date Type Department Care Team Description 02/07/2025 Refill [facility] [address] [place] [address] H[place]Mirella FNP Seasonal allergies 02/02/2025 Refill [facility] [address] [place] [address] Mirella Sarkar FNP 01/31/2025 Refill [facility] [address] [place] [address] HancockMirella FNP Constipation, unspecified constipation type 01/25/2025 Telephone [facility] [address] [place] [address] HancockMirella FNP Medication Question 01/10/2025 Orders Only GENERIC EXTERNAL DATA DEPARTMENT Provider, Generic External Data 01/09/2025 Refill [facility] [address] [place] [address] Lana Marcelino MD Essential hypertension 01/07/2025 9:30 AM EDT Office Visit [facility] [address] [place] [address] Mirella Sarkar FNP Essential hypertension (Primary Dx); Osteopenia, unspecified location; Normocytic anemia; Dietary counseling; Exercise counseling; Class 1 obesity due to excess calories with serious comorbidity and body mass index (BMI) of 31.0 to 31.9 in adult 01/07/2025 Travel 01/06/2025 Refill [facility] [address] [place] [address] HancockMirella [facility] 12/31/2024 Patient Outreach [facility] [address] [place] [address] [facility] Pre-visit Planning ((Unable to reach for PVP screening or LVM)) 12/21/2024 1:00 PM EST Clinical Support [facility] DIABETES/NUTRITION [address] [place] [address] Infectious colitis (Primary Dx) 12/21/2024 Travel 12/07/2024 11:30 AM EST Clinical Support [facility] DIABETES/NUTRITION [address] [place] [address] Infectious colitis (Primary Dx) 12/07/2024 Travel 11/29/2024 Refill [facility] [address] [place] [address] [place] Mirella [facility] Other hyperlipidemia 11/23/2024 11:00 AM EST Clinical Support [facility] DIABETES/NUTRITION [address] [place] [address] Infectious colitis (Primary Dx) 11/23/2024 Travel from Last 3 Months Immunizations Name [...] 01/07/2025 9:19 AM EDT Plan of Treatment Health Maintenance Due Date Last Done Comments CT Colonography 1949 FIT DNA/Cologuard 1950 Sigmoidoscopy 1950 Hepatitis C Screening 1967 RSV Patients and Patients Aged 60 years or older (1 - 1-dose 75+ series) 2024 FIT 05/01/2024 05/01/2023 FOBT 05/01/2024 05/01/2023 Alcohol/Substance Use Screening 01/07/2026 01/07/2025 Depression Screening 01/07/2026 01/07/2025, 01/08/20 25 SDOH Screening 01/07/2026 01/07/2025 Tobacco Screening 01/10/2026 01/10/2025 Colonoscopy 08/05/2029 08/05/2024, 07/06/2019 Colorectal Cancer Screening 08/05/2029 Lipid Panel 01/10/2030 01/10/2025, 0612/2023, 09/10/2023, Additional history exists DTaP/Tdap/Td Vaccines (3 - Td or Tdap) [...] Procedure Name Priority Date/Time Associated Diagnosis Comments HEMOGLOBIN ELECTROPHORESIS Routine 01/10/2025 9:20 AM EDT ZINC Routine 01/10/2025 9:20 AM EDT COMPREHENSIVE METABOLIC PANEL Routine 01/10/2025 9:20 AM EDT FERRITIN Routine 01/10/2025 9:20 AM EDT VITAMIN B12/FOLATE, SERUM PANEL Routine 01/10/2025 9:20 AM EDT CBC WITH AUTO DIFFERENTIAL Routine 01/10/2025 9:20 AM EDT IRON AND TOTAL IRON BINDING CAPACITY Routine 01/10/2025 9:20 AM EDT Osteopenia, unspecified location LIPID PANEL, STANDARD Routine 01/10/2025 9:20 AM EDT Osteopenia, unspecified location VITAMIN D,25-OH,TOTAL,IA Routine 01/10/2025 9:20 AM EDT Osteopenia, unspecified location HM COLONOSCOPY Routine 08/05/2024 FECAL GLOBIN BY IMMUNOCHEMISTRY Routine 05/01/2023 3:09 PM EDT from Last 3 Months or Most Recently Relevant to Health Maintenance Results * Vitamin D, 25-Hydroxy, Total, Immunoassay (01/10/2025 9:20 AM EDT) Pathologist [facility] Vitamin D 25-OH Total 39.8 >30 ng/mL [facility] Comment: Health Based Reference Values*< 20 ??ng/mL ??Fvhcdmddr57-20 ng/mL ??Insufficient> 30 ??ng/mL ??Sufficient*Allyssa YAETS. N Engl J Med. 2007;357:266-280There is no well-established upper level of normal vitamin Dlevels. Some laboratories use 50 ng/mL as an upper limit ofnormal. However, toxicity is patient-dependent and may occurat any level. Careful correlation with the patient'spresentation is necessary and, if there is concern forvitamin D toxicity, treatment should be consideredirrespective of the serum level.Care must be taken in interpreting Vitamin D results fromdifferent laboratories and methodologies. ??Published datademonstrated that results from patients undergoinghemodialysis may show a negative bias when tested withvarious automated 25-OH vitamin D assays when compared toLC- MS/MS.When testing samples from patients whose predominant form ofVitamin D is Vitamin D2, such as patients receiving VitaminD2 supplementation, results that are subtherapeutic shouldbe confirmed with another method such as LC-MS/MS. Blood Venous blood specimen / Unknown 01/10/2025 9:20 AM EDT 01/10/2025 11:18 AM EDT [facility] LAB BLOOD ORDERABLES Final Re sult [facility] [address] [place] [address] [phone] * Vitamin B12 (Cobalamin) and Folate Panel, Serum (01/10/2025 9:20 AM EDT) [facility] Vitamin B12 544 200 - 900 pg/mL [facility] Comment:NORMAL 200-900 PG/ML INDETERMINATE 160-199 PG/ML DEFICIENT < 160 PG/ML Folate 13.3 > or = 4.0 ng/mL [facility] Comment:Reference Values:> o r = 4.0 ng/mL< 4.0 ng/mL suggests folate deficiency Methotrexate, aminopterin and folinic acid(leucovorin) are chemotherapeutic agents whose molecularstructures are similar to folate; therefore, the Architectfolate assay cannot be used for patients using these drugs. 01/10/2025 9:20 AM EDT 01/10/2025 11:18 AM EDT Generic External Data Provider LAB BLOOD ORDERAB LES Final Result [facility] [address] [place] [address] [phone] * (ABNORMAL) CBC auto differential (01/10/2025 9:20 AM EDT) [facility] White Blood Count 4.7(L) 4.8 - 10.8 X10*3/uL [facility] Red Blood Count 3.20(L) 4.20 - 5.50 X10*6/uL [facility] Hemoglobin 10.2(L) 12.0 - 16.0 g/dl [facility] Hematocrit 30.2(L) 37.0 - 47.0 % [facility] Mean Corpuscular Volume 94.4 80.0 - 98.0 fL [facility] Mean Corpuscular Hemoglobin 31.9 27.0 - 33.0 pg [facility] Mean Corpuscular HGB Conc 33.8 31.0 - 35.0 g/dl [facility] Red Cell Distribution Width 12.6 11.0 - 16.0 % [facility] Platelet Count 179 160 - 400 X10*3/uL [facility] Mean Platelet Volume 10.9 9.4 - 12.3 fL [facility] Neutrophils Percent Auto 41.3(L) 45 - 73 % [facility] Imm Gran Pct Auto 0.2 0.0 - 0.4 % [facility] Lymphocytes Percent Auto 43.6(H) 20 - 40 % [facility] Monocytes Percent Auto 8.8 2 - 11 % [facility] Eosinophils Percent Auto 5.2(H) 0 - 4 % [facility] Basophils Percent Auto 0.9 0 - 2 % [facility] NRBC Pct Auto 0.0 0.0 - 0.2 /100WBC [facility] Neutrophils Absolute Auto 1.9(L) 2.0 - 8.3 x10*3/uL [facility] Imm Gran Abs Auto 0.01 0.00 - 0.03 X10*3/uL [facility] Lymphocytes Absolute Auto 2.0 1.2 - 4.9 X10*3/uL [facility] Monocytes Absolute Auto 0.4 0.1 - 1.2 X10*3/uL [facility] Eosinophils Absolute Auto 0.2 0.0 - 0.4 X10*3/uL [facility] Basophils Absolute Auto 0.0 0.0 - 0.2 X10*3/uL [facility] NRBC Abs Auto 0.000 0.0 - 0.012 X10*3/uL [facility] 01/10/2025 9:20 AM EDT 01/10/2025 11:18 AM EDT us Generic External Data Provider LAB BLOOD ORDERAB LES Final Result [facility] [address] [place] [address] [phone] * (ABNORMAL) Hemoglobin Electrophoresis (01/10/2025 9:20 AM EDT) RBC 3.23(A) 3.80 - 5.10 Million/u L [facility] Hemoglobin 10.4(A) 11.7 - 15.5 g/dL [facility] Hematocrit 30.7(A) 35.0 - 45.0 % [facility] MCV 95.0 80.0 - 100.0 fL [facility] MCH 32.2 27.0 - 33.0 pg [facility] RDW 12.8 11.0 - 15.0 % [facility] Hemoglobin A 97.3 >96.0 % [facility] Hemoglobin A2 2.7 2.0 - 3.2 % [facility] Hemoglobin F <1.0 <2.0 % [facility] Hemoglobin S [facility] Hemoglobin C TNP [facility] Hemoglobin E TNP [facility] Other Hemoglobin TNP [facility] Other Hemoglobin 2 TNP H [facility] Hgb Interpretation SEE NOTE H [facility] Comment:Normal phenotype.THI S TEST WAS PERFORMED AT:[email or web address] [place] [id number] COLON MD 01/10/2025 9:20 AM EDT 01/10/2025 11:18 AM EDT us Generic External Data Provider LAB BLOOD ORDERAB LES Final Result [facility] [address] [place] [address] [phone] * (ABNORMAL) Iron And Total Iron Binding Capacity (01/10/2025 9:20 AM EDT) Pathologist [facility] Iron 57 30 - 160 mcg/dL [facility] Total Iron Binding Capacity 199(L) 228 - 428 mcg/dL [facility] Percent Iron Saturation 29 15 - 50 % [facility] Unsaturated Iron Binding 142 ug/dL [facility] Blood Venous blood specimen / Unknown 01/10/2025 9:20 AM EDT 01/10/2025 11:18 AM EDT [facility] [employer] LAB BLOOD ORDERABLES Final Re sult Performing Organization Address [facility]/ZIP Co de Phone Number [facility] [address] [place] [phone] * (ABNORMAL) Zinc (01/10/2025 9:20 AM EDT) Zinc 58(A) 60 - 130 mcg/dL [facility] Comment:This test was develo ped and its analytical performancecharacteristics have been determined by [employer] [place], [place]. It hasnot been cleared or approved by the U.S. Food and DrugAdministration. This assay has been validated pursuantto the CLIA regulations and is used for clinicalpurposes.THIS TEST WAS PERFORMED AT:[employer] [place] [id number] CALVILLO MD,PHD 01/10/2025 9:20 AM EDT 01/10/2025 11:18 AM EDT Generic External Data Provider LAB BLOOD ORDERAB LES Final Result Performing Organization Address [facility] Co de Phone Number [facility] [address] [place] [phone] * Ferritin (01/10/2025 9:20 AM EDT) Ferritin 48 10 - 250 ng/mL [facility] 01/10/2025 9:20 AM EDT 01/10/2025 11:18 AM EDT Generic External Data Provider LAB BLOOD ORDERAB LES Final Result Performing Organization Address [facility]/ZIP Co de Phone Number [facility] [address] [place] [phone] * Lipid Panel, Standard (01/10/2025 9:20 AM EDT) Triglycerides 79 <150 mg/dL [facility] Comment:Desirable Triglyceri de: less than 150 mg/dLBorderline High Triglyceride 150-199 mg/dLHigh Triglyceride: 200-499 mg/dLVery High Triglyceride: greater than or equal to 5OO mg/dL Cholesterol 112 <200 mg/dL [facility] Comment:Desirable Cholestero l: less than 200 mg/dLBorderline High Cholesterol: 200-239 mg/dLHigh Cholesterol: greater than 239 mg/dL LDL Cholesterol Calculated 41 <100 mg/dL [facility] Comment:Desirable LDL: less than 100 mg/dLNear Optimal/Above Optimal LDL: 110- 129 mg/dLBorderline High LDL: 130-159 mg/dLHigh LDL: 160-189 mg/dLVery High LDL: greater than or equal to 190 mg/dL HDL Cholesterol 56 >40 mg/dL [facility] Comment:Desirable HDL: great er than 40 mg/dL Note: This HDL assay may give artificially low results in patients with liver disease. Blood Venous blood specimen / Unknown 01/10/2025 9:20 AM EDT 01/10/2025 11:18 AM EDT [facility] LAB BLOOD ORDERABLES Final Re sult [facility] [address] [place], [place] [phone] * (ABNORMAL) Comprehensive Metabolic Panel (01/10/2025 9:20 AM EDT) Sodium 142 135 - 145 mmol/L [facility] Potassium 4.2 3.3 - 5.1 mmol/L [facility] Chloride 111(H) 96 - 108 mmol/L [facility] Carbon Dioxide 23 22 - 29 mmol/L [facility] Anion Gap 12 12 - 20 [facility] Urea Nitrogen (BUN) 30(H) 9 - 16 mg/dL [facility] Creatinine, Serum 1.06 0.5 - 1.4 mg/dL [facility] Estimated Glomerular Filt Rate 51 [facility] Comment:Chronic Kidney Disea se: Estimated GFR < 60 mL/min/1.88g3Bnaybd Kidney Disease: Estimated GFR < 15 mL/min/1.73m2 Glucose 89 60 - 115 mg/dL [facility] Calcium 9.4 8.4 - 10.2 mg/dL [facility] Bilirubin, Total 0.3 0.0 - 1.0 mg/dL [facility] Aspartate Amino Transferase 20 5 - 31 U/L [facility] Alanine Aminotransferase 12 0 - 31 U/L [facility] Total Protein 7.8 6.5 - 8.0 g/dL [facility] Albumin Level 3.9 3.5 - 5.0 g/dL [facility] Alkaline Phosphatase 79 39 - 117 U/L [facility] 01/10/2025 9:20 AM EDT 01/10/2025 11:18 AM EDT us Generic External Data Provider LAB BLOOD ORDERAB LES Final Result [facility] [address] [place] [phone] [phone] * (ABNORMAL) Hm Colonoscopy (08/05/2024) Colonoscopy Abnormal( A) Normal Comment:repeat 5 years Historical Provider HEALTH MAINTENANCE Final Result * Fecal Globin by Immunochemistry (05/01/2023 3:09 PM EDT) Fecal Globin By Immunochemistry SEE NOTE [employer] [facility] Comment: ??FECAL GLOBIN BY IMMUNOCHEMISTRY ?Micro Number: ?[id number] ??Test Status: ? Final ??Specimen Source: ?? [...] REQUIREMENTS NOT MET. PATIENT ADVISED TO RETURN. [facility] LAB BODY FLUIDS AND STOOLS OR DERABLES Final Result [facility] [address], [place] [address] [employer] [facility] [address] [place] [phone] from Last 3 Months or Most Recently Relevant to Health Maintenance Insurance [facility] Care Teams Wood Shingle Roofer Relationship Specialty Start Date End Date [facility] [address] [place] [phone] PCP - General Family Medicine 06/20/22
--- OUTSIDE RECORDS SUMMARY | 2025-02-09 07:54 | XMS_ITS | Encounter Summary ---
Author Organization [employer] Address [address] [facility] 7t [place] [address] Care Team Providers Care Coding Director Name Role Phone Mirella Sarkar SLIP BRIDGE OPERATOR Primary Care Provider [phone] Encounter Details Date Type Department Care Team (Late st Contact Info) Description 11/25/2022 Orders Only [facility] MED & PEDS [address] [place], [place] [phone] Abby Vale LPN Social History Tobacco Use [...] on file documented as of this encounter Visit Diagnoses Not on filedocumented in this encounter Care Teams Coding Director Relationship Specialty Start Date End Date Mirella Sarkar FNP [address] [place] [phone] PCP - General Family Medicine 06/20/22 documented as of this encounter
--- OUTSIDE RECORDS SUMMARY | 2025-02-09 07:54 | XMS_ITS | Encounter Summary ---
Author Organization [employer] Address [address] [facility] 7t [place] [address] Care Team Providers Care Shower Attendant Name Role Phone [facility] Primary Care Provider [phone] Reason for Visit * Reason Comments Med Refill Encounter Details Date Type Department Care Team ([facility] st Contact Info) Description 02/07/2025 Refill [facility] MEDICINE [address] [place], [place] [phone] [facility] [address] [place], [place] [phone] Seasonal allergies Social History Tobacco Use Types Packs/Day Years [...] as of this encounter Visit Diagnoses Diagnosis Seasonal allergies Allergic rhinitis, cause unspecified documented in this encounter Additional Health Concerns Assessment Noted Time PHQ-9 Depression Total Score: 0 01/08/20 25 9:22 AM EDT documented as of this encounter Care Teams Shower Attendant Relationship Specialty Start Date End Date Mirella Sarkar FNP [address] [place] [id number] PCP - General Family Medicine 06/20/22 documented as of this encounter
--- OUTSIDE RECORDS SUMMARY | 2025-02-09 07:54 | XMS_ITS | Encounter Summary ---
Author Organization [employer] Address [address] [facility] 7t [place] [address] Care Team Providers Care Dress Designer Name Role Phone [place] BOTTLER HELPER Primary Care Provider [phone] Encounter Details Date Type Department Care Team ([facility] st Contact Info) Description 10/17/2023 Orders Only [facility] MED & PEDS [address] [place] [address] Abby Vale LPN Social History Tobacco Use [...] documented as of this encounter Care Teams Dress Designer Relationship Specialty Start Date End Date Mirella Sarkar FNP [address] [place] [id number] PCP - General Family Medicine 06/20/22 documented as of this encounter
--- OUTSIDE RECORDS SUMMARY | 2025-02-09 07:54 | XMS_ITS | Encounter Summary ---
Author Organization [employer] Address [address] [place] [address] 7t [place] [address] Care Team Providers Care Power Plant Inspector Name Role Phone eMllo Mirella DANCING INSTRUCTOR Primary Care Provider [phone] Encounter Details Date Type Department Care Team ([facility] st Contact Info) Description 10/30/2022 Orders Only [facility] MED & PEDS [address] [place], [place] [phone] Abby Vale LPN Social History Tobacco Use [...] EST Narrative 11/07/2022 4:12 PM EST ? [facility] ? [address] ?[place] [address] ? Mammography Report ? Signed ? Patient: Jean Jose,Heide ?MR#: [id number] ?? [id number] ? : 1950 ?Acct:[id number] ? Age/Sex: 72 / F ?ADM Date: //23 ? Loc: HO.MAMMO ? Attending Dr: Bridgett Braun ? Ordering Physician: Bridgett Braun ? Results: 2Benign F ?? indings ? Date of Service: 11/06/22 ?Follow Up: 1 Year From Orig ?? inal Mammogram ? Procedure(s): MM tomosynthesis screening BI ?? Accession Number(s): [id number] ? cc: Bridgett Braun ? EXAMINATION: ?? [...] signed by Hal Salinas MD in OV> ?11/07/229 ? DD/ 1030 ? TD/TT: ? Driller Portable: REEVES ? Procedure Note Donotuseinterpreter, Image - [facility]/07/20[facility] [address] [place] [address] Mammography Report Signed Patient: Kalli Peoples LMR#: [id number] : 9Acct:[id number] Age/Sex: 72 / FADM Date: 11/06/22 Loc: HO.MAMMO Attending Dr: Bridgett Braun Ordering Physician: Bridgett BraunResults: 2Benign F indings Date of Service: 11/06/22Follow Up: 1 Year From Orig inal Mammogram Procedure(s): MM tomosynthesis screening BI Accession Number(s): [id number] cc: Bridgett Braun EXAMINATION: MM SCREENING DIGITAL [...] in OV> 11/07/22 1609 DD/ 1030 TD/TT: Driller Portable: REEVES [facility] External Provider IMG BI PROCEDURES Final Result documented in this encounter Visit Diagnoses Not on filedocumented in this encounter Care Teams Power Plant Inspector Relationship Specialty Start Date End Date Mirella Sarkar FNP [address] [place] [phone] PCP - General Family Medicine 06/20/22 documented as of this encounter
--- NOTE | 2025-02-10 13:12 | MHC.OFFVIS ---
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 Patchy gastritis with granular mucosa noted. No active bleeding Conclusion: incomplete study consider repeat with endoscopic placement of capsule, and maybe gastric emptying study to r/o gastroparesis. Capsule Endoscopy CPT Code: 07644 - Capsule Endoscopy Assessment & Plan Assessment & Plan (1) Anemia: Code(s): D64.9 - Anemia, unspecified Category: Medical Plan: repeat capsule with egd placement Coding Level of Care Code Procedure Only Diagnoses Anemia D64.9 CPT Codes AMB Capsule Endoscopy - Capsule Endoscopy CPT Code: 52448 - Capsule Endoscopy ([id number])
== END 2025-02-09 08:10 | disposition home or self-care (01) ==
PROVIDERS: PCP Registered Nurse; Visit Provider Internal Medicine Gastroenterology
DX: D64.9 Anemia, unspecified (principal); K29.70 Gastritis, unspecified, without bleeding
CPT/HCPCS: 91110

== ENCOUNTER → 2025-02-09 07:50 | Outpatient (BNVA) | payer OTHER, SELFPAY | PROVIDERS: PCP Registered Nurse; Visit Provider Internal Medicine Gastroenterology | DX: D64.9 Anemia, unspecified (principal) | CPT/HCPCS: 91110 ==

== ENCOUNTER 2025-04-06 11:14 | Day surgery (SDC) | payer OTHER, SELFPAY ==
--- OUTSIDE RECORDS SUMMARY | 2025-04-04 16:44 | XMS_ITS | Encounter Summary ---
Author Organization [employer] [facility] [employer] Address [address] [facility] [address] 7[address] [place] [address] Care Team Providers Care Cafeteria Attendant Name Role Phone Mello Mirella FINANCIAL INSTITUTION VICE PRESIDENT Primary Care Provider [phone] Encounter Details Date Type Department Care Team (Late st Contact Info) Description 02/04/2024 Orders Only [facility] MEDICINE [address] [place], [place] [phone] Provider, MD Frida Social History Tobacco Use [...] documented as of this encounter Care Teams Cafeteria Attendant Relationship Specialty Start Date End Date Mirella Sarkar FNP [address] [place] [id number] PCP - General Family Medicine 06/20/22 documented as of this encounter
--- NOTE | 2025-04-05 12:13 | HO.ANESPROP2 ---
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 Allergic rhinitis Diverticular disease of colon Essential hypertension Hypercholesteremia Moderate persistent asthma Osteopenia Family History Family history of problems with anesthesia: No Surgical History Surgical History Hx of esophagogastroduodenoscopy Hx of colonoscopy History of hysterectomy History of Problems with Anesthesia: No Social History Social History Household Members: [facility] Are you a primary child care associate to a significant other at home: No Do you presently have visiting nurse or other home services: No Patient Tobacco Use Status: Never used Tobacco Use of substances other than those prescribed or required for medical reasons: No Are you DNR?: No Advance Directives: No Advance Directives Information Provided: Yes Patient : No Poor oral hygiene: Yes service: No Meds Allergies Allergy/AdvReac Type Severity Reaction Status Date / Time BIPHOSPHONATES Allergy Unknown Unknown Uncoded 04/06/25 14:01 Home Medications ?Medication ?Instructions ?Recorded ?Confirmed ?Last Taken ?Type albuterol sulfate 90 mcg/actuation 2 puff inhalation QID PRN 10/22/23 04/06/25 07/29/24 History aerosol inhaler Shortness Of Breath Or Wheezing amlodipine 5 mg tablet 5 mg PO DAILY 10/22/23 04/06/25 07/29/24 History calcium 600 mg (as 1 tab PO BID 10/22/23 04/06/25 07/29/24 History carbonate)-vitamin D3 10 mcg (400 unit) tablet docusate sodium 100 mg capsule 100 mg PO DAILY 10/22/23 04/06/25 07/29/24 History ergocalciferol (vitamin D2) 1,250 50,000 unit PO Q30D 10/22/23 04/06/25 07/27/24 History mcg (50,000 unit) capsule ferrous sulfate 325 mg (65 mg 325 mg PO DAILY 10/22/23 04/06/25 07/29/24 History iron) tablet (FeroSul) fluticasone 250 mcg-salmeterol 50 1 ea inhalation BID 10/22/23 04/06/25 07/29/24 History mcg/dose blistr powdr for inhalation lisinopril 20 1 tab PO DAILY 10/22/23 04/06/25 07/29/24 History mg-hydrochlorothiazide 25 mg tablet loratadine 10 mg tablet 10 mg PO DAILY 10/22/23 04/06/25 07/29/24 History rosuvastatin 20 mg tablet 20 mg PO BEDTIME 10/22/23 04/06/25 07/29/24 History peg 400-propylene glycol 0.4 %-0.3 1 drp ophthalmic (eye) DAILY 07/30/24 04/06/25 Unknown History % eye drops (Systane (propylene glycol)) polyethylene glycol 3350 17 17 g PO DAILY 12/20/24 04/06/25 Unknown History gram/dose oral powder Assessment and Plan Assessment Anesthesia Assessment: Chart Reviewed Final Anesthetic Review Family History of Problems with Anesthesia: No History of Problems with Anesthesia: No Documented by User: Gaviota Cedeño MD 04/06/25 15:10 [facility] Past Medical History Medical History Obesity 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 Allergic rhinitis Diverticular disease of colon Essential hypertension Hypercholesteremia Moderate persistent asthma Osteopenia Surgical History Surgical History Hx of esophagogastroduodenoscopy Hx of colonoscopy History of hysterectomy Social History Social History Household Members: Spouse Housing: Condominium Are you a primary child care associate to a significant other at home: No Do you presently have visiting nurse or other home services: No Patient Tobacco Use Status: Never used Tobacco Use of substances other than those prescribed or required for medical reasons: No Are you DNR?: No Advance Directives: No Advance Directives Information Provided: Yes Patient : No Poor oral hygiene: Yes service: No Meds Allergies Allergy/AdvReac Type Severity Reaction Status Date / Time BIPHOSPHONATES Allergy Unknown Unknown Uncoded 04/06/25 14:01 Home Medications ?Medication ?Instructions ?Recorded ?Confirmed ?Last Taken ?Type albuterol sulfate 90 mcg/actuation 2 puff inhalation QID PRN 10/22/23 04/06/25 07/29/24 History aerosol inhaler Shortness Of Breath Or Wheezing amlodipine 5 mg tablet 5 mg PO DAILY 10/22/23 04/06/25 07/29/24 History calcium 600 mg (as 1 tab PO BID 10/22/23 04/06/25 07/29/24 History carbonate)-vitamin D3 10 mcg (400 unit) tablet docusate sodium 100 mg capsule 100 mg PO DAILY 10/22/23 04/06/25 07/29/24 History ergocalciferol (vitamin D2) 1,250 50,000 unit PO Q30D 10/22/23 04/06/25 07/27/24 History mcg (50,000 unit) capsule ferrous sulfate 325 mg (65 mg 325 mg PO DAILY 10/22/23 04/06/25 07/29/24 History iron) tablet (FeroSul) fluticasone 250 mcg-salmeterol 50 1 ea inhalation BID 10/22/23 04/06/25 07/29/24 History mcg/dose blistr powdr for inhalation lisinopril 20 1 tab PO DAILY 10/22/23 04/06/25 07/29/24 History mg-hydrochlorothiazide 25 mg tablet loratadine 10 mg tablet 10 mg PO DAILY 10/22/23 04/06/25 07/29/24 History rosuvastatin 20 mg tablet 20 mg PO BEDTIME 10/22/23 04/06/25 07/29/24 History peg 400-propylene glycol 0.4 %-0.3 1 drp ophthalmic (eye) DAILY 07/30/24 04/06/25 Unknown History % eye drops (Systane (propylene glycol)) polyethylene glycol 3350 17 17 g PO DAILY 12/20/24 04/06/25 Unknown History gram/dose oral powder Exam Airway Mallampati Class: II TM Dist: >3cm Neck ROM: Full Denture: Upper and Lower Loose/Missing/Broken Teeth: Yes, Upper and Lower Heart: RRR Lungs: CTA Assessment and Plan Assessment Anesthesia Assessment: Anesthesia Plan Discussed Final Anesthetic Review NPO: Yes ASA Class: II Final Preanesthetic Review: Meds/Allgs Chart Reviewed, Consent Obtained/Reviewed and Anes Risks/Benef Reviewed Patient Risk: Low Procedure Risk: Intermediate Anesthetic Plan Anesthetic Plan: MAC: Disposition: Standard PACU
[2025-04-06 14:10] VITALS: BP 131/53; PULSE 72; RESP 14; TEMP 36.6; O2SAT 99; BMI 30.1
--- NOTE | 2025-04-06 14:19 | MHC.SHP ---
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 Allergic rhinitis Diverticular disease of colon Essential hypertension Hypercholesteremia Moderate persistent asthma Osteopenia) History of Previous Operations: Relevant previous surgery/procedure and date(s) ( Hx of esophagogastroduodenoscopy Hx of colonoscopy History of hysterectomy) Allergies: Allergies Allergy/AdvReac Type Severity Reaction Status Date / Time BIPHOSPHONATES Allergy Unknown Unknown Uncoded 04/06/25 14:01 Review of Systems Sugical H&P ROS: Negative: Constitution, Cardiovascular, Respiratory, Neurological, Psychiatric, Hem-Onc, Allergic/Immunologic, Gastrointestinal, Genitourinary, Musculoskeletal, Integumentary, Endocrine and Eyes/Ears/Nose/Throat Exam Surgical H&P Exam: Normal: HEENT, Normal: Heart, Normal: Lungs, Normal: Extremities, Normal: Abdomen, Normal: Skin and Normal: Neurological Plan Diagnosis/Plan: Unchanged I have reviewed the history and physical and performed a pertinent physical examination on my patient. No changes have occurred unless specified. Time Spent With Patient Time: Total time managing care of this patient today ____ minutes.
[2025-04-06] MEDS: Lactated Ringers 1,000 ML 100 ML IVCONT (14:24)
--- NOTE | 2025-04-06 15:38 | W.PM.OPN ---
Operative Note Operative Note Date of Service: 04/06/25 Narrative: Procedure Description: EGD Indication: pill cam placement, Anesthesia: MAC FLEXIBLE TRANSORAL UPPER GASTROINTESTINAL ENDOSCOPY UPPER ENDOSCOPY Consent: Indications for the procedure and potential complications of bleeding, perforation, reaction to medications and missed diagnosis were discussed with the patient and informed consent was obtained. Instrument: Olympus GIF H 190 J mid size upper endoscope Monitoring: Vital signs and clinical assessment, continuous EKG monitoring, Pulse oximetry, Carbon Dioxide monitoring and blood pressure monitoring were done throughout the procedure. Procedure: The patient was placed in the left lateral decubitis position and pre-procedure medications were administered and a bite block was placed. The endoscope was inserted into the mouth and advanced under direct vision to the third part of duodenum. A careful inspection was made as the upper endoscope was withdrawn including a retroflexed examination of the proximal stomach; Findings and interventions are described below. Findings: Larynx:normal Esophagus: GE junction at 33 cm, diaphragm hiatus at 35 cm, schatzki ring noted, 2 cm hiatal hernia, Stomach: Mild gastritis Grade 2 flap valve on retroflexed examination of the cardia. The pylorus was dilated with wire guided balloon to 20 mm. Duodenum: Patchy erythema, in bulb, one area with slight oozing but stopped. Pill cam was deployed using deployment device. Intervention: wire guided balloon dilation, pill cam deployment PLAN: await pill cam results GERD precautions
[2025-04-06 15:40] VITALS: BP 97/53; PULSE 83; RESP 18; TEMP 36.2; O2SAT 99
[2025-04-06 15:55] VITALS: BP 110/44; PULSE 62; RESP 18; O2SAT 99
[2025-04-06 16:10] VITALS: BP 128/54; PULSE 71; RESP 18; TEMP 36.2; O2SAT 99
== END 2025-04-06 16:32 | disposition home or self-care (01) ==
PROVIDERS: PCP Registered Nurse; Visit Provider Internal Medicine Gastroenterology
PROC: (CPT 43245; principal; 2025-04-06 14:30)
DX: D64.9 Anemia, unspecified (principal); K44.9 Diaphragmatic hernia without obstruction or gangrene; K22.2 Esophageal obstruction; K29.60 Other gastritis without bleeding; K57.30 Diverticulosis of large intestine without perforation or abscess without bleeding; I10 Essential (primary) hypertension; E78.00 Pure hypercholesterolemia, unspecified; J45.40 Moderate persistent asthma, uncomplicated; E66.9 Obesity, unspecified; M48.10 Ankylosing hyperostosis [Forestier], site unspecified; M19.011 Primary osteoarthritis, right shoulder; Z88.8 Allergy status to other drugs, medicaments and biological substances; Z79.899 Other long term (current) drug therapy; Z79.51 Long term (current) use of inhaled steroids
CPT/HCPCS: 43245; C1726; J2003; J2704

== ENCOUNTER → 2025-04-06 11:14 | Outpatient (BNV) | payer OTHER, SELFPAY | PROVIDERS: PCP Registered Nurse; Visit Provider Internal Medicine Gastroenterology | DX: D64.9 Anemia, unspecified (principal); K22.2 Esophageal obstruction; K29.70 Gastritis, unspecified, without bleeding | CPT/HCPCS: 43249 ==

== ENCOUNTER 2025-07-12 10:03 | Outpatient (REF) | payer OTHER, SELFPAY ==
--- OUTSIDE RECORDS SUMMARY | 2025-07-11 10:30 | XMS_ITS | Encounter Summary ---
Author Organization [employer] Address [address] [facility] 7t [place] [address] Care Team Providers Care Gallery Or Museum Curator Name Role Phone [place] [facility] Primary Care Provider [phone] Reason for Visit * Reason Comments Follow-up Encounter Details Date Type Department Care Team ([facility] st Contact Info) Description 07/11/2025 10:30 AM EDT Office Visit [facility] [address], [place] [phone] [facility] [address] [place] [address] Normocytic anemia (Primary Dx); Great toe pain, right Social History Tobacco Use Types Packs/Day Years Used Date Smoking Tobacco: Never Passive Smoke Exposure: Never Smokeless Tobacco: Never Tobacco Cessation:Counseling Given: Not Answered Alcohol Use Standard Drinks/Week Comments Never 0 (1 standard drink = 0.6 oz pur e alcohol) Depression Answer Date Recorded Patient Health Questionnaire-9 Score 0 07/11/2025 Patient Health Questionnaire-9 Score 0 07/11/2025 Last PHQ-9: Questionnaire Data Not on file 0 07/11/2025 Housing Stability Answer Date Recorded What is [...] Date Recorded Patient Health Questionnaire-2 Score 0 07/11/2025 Internet Access Answer Date Recorded Internet Access [...] Sign Reading Time Taken Comments Blood Pressure 134/68 07/11/2025 10:58 AM EDT Pulse 60 07/11/2025 10:58 AM EDT Temperature 36.6 C (97.8 F) 07/11/2025 10:58 AM EDT Respiratory Rate 18 07/11/2025 10:58 AM EDT Oxygen Saturation - - Inhaled Oxygen Concentration - - Weight 61 kg (134 lb 6.4 oz) 07/11/2025 10:58 AM EDT Height 139.7 cm (4' 7 ) 07/11/2025 10:58 AM EDT Body Mass Index 31.24 07/11/2025 10:58 AM EDT documented in this encounter Functional Status * Over the past 2 weeks, how often have you been bothered by any of the following problems? Question Answer Date of Assessment Author Patient Health Questionnaire-2 Score 0 07/11/2025 11:28 AM EDT Charlene Whittaker MA * Little interest or pleasure in doing things Answer Date of Assessment Author Not at all 07/11/2025 11:28 AM EDT Charlene Thornton MA * Feeling down, depressed, or hopeless Answer Date of Assessment Author Not at all 07/11/2025 11:28 AM EDT Charlene Thornton MA * Trouble falling or staying asleep, or sleeping too much Answer Date of Assessment Author Not at all 07/11/2025 11:28 AM Charlene Barber MA * Feeling tired or having little energy Answer Date of Assessment Author Not at all 07/11/2025 11:28 AM EDCharlene Perez MA * Poor appetite or overeating Answer Date of Assessment Author Not at all 07/11/2025 11:28 AM EDT Charlene Thornton MA * Feeling bad about yourself - or that you are a failure or have let yourself or your family down Answer Date of Assessment Author Not at all 07/11/2025 11:28 AM Charlene Barber MA * Trouble concentrating on things, such as reading the newspaper or watching television Answer Date of Assessment Author Not at all 07/11/2025 11:28 AM Charlene Barber MA * Moving or speaking so slowly that other people could have noticed? Or the opposite - being so fidgety or restless that you have been moving around a lot more than usual. Answer Date of Assessment Author Not at all 07/11/2025 11:28 AM Charlene Barber MA * Thoughts that you would be better off or hurting yourself in some way Answer Date of Assessment Author Not at all 07/11/2025 11:28 AM Charlene Barber MA * Patient Health Questionnaire-9 Score Answer Date of Assessment Author 0 07/11/2025 11:28 AM Charlene Barber MA * Over the last 2 weeks, how often have you been bothered by any of the following problems? Question Answer Date of Assessment Author Feeling nervous, anxious, or on edge 1 07/11/2025 11:29 AM Charlene Ngo MA Not being able to stop or control worrying 0 07/11/2025 11:29 AM Charlene Ngo MA Worrying too much about different things 0 07/11/2025 11:29 AM EDT Charlene Harman MA Trouble relaxing 0 07/11/2025 11:29 AM EDT Charlene Harman MA Being so restless that it is hard to sit still 0 07/11/2025 11:29 AM EDT Charlene Harman MA Becoming easily annoyed or irritable 0 07/11/2025 11:29 AM EDT Charlene Harman MA documented as of this encounter Plan of Treatment Not on file documented as of this encounter Procedures Procedure Name Priority Date/Time Associated Diagnosis Comments XR FOOT 3+ VIEWS RIGHT Routine 07/12/2025 12:25 PM EDT Great toe pain, right CBC WITH AUTO DIFFERENTIAL Routine 07/12/2025 10:07 AM EDT Normocytic anemia IRON AND TOTAL IRON BINDING CAPACITY Routine 07/12/2025 10:07 AM EDT Normocytic anemia FERRITIN Routine 07/12/2025 10:07 AM EDT Normocytic anemia documented in this encounter Results * XR Foot 3+ Views Right (07/12/2025 12:25 PM EDT) Anatomical Region Laterality Modality Lower Extremities, Foot Right Radiogra phic Imaging 07/12/2025 12:2 5 PM EDT Narrative 07/12/2025 12:39 PM EDT [place] [address] XRay Report Signed Patient: Kalli Peoples MR#: [id number] : 1950 Acct:[id number] Age/Sex: 75 / F ADM Date: 07/12/25 Loc: [facility] Attending Dr: Mirella TRINH Ordering Physician: Mirella Sarkar Date of Service: 07/12/25 Procedure(s): XR foot RT min 3V Accession Number(s): [id number] cc: Mirella Sarkar Reason for Exam: 75 y.o F with acute right great toe pain. R/o fracture EXAMINATION: XR FOOT, RIGHT CLINICAL INFORMATION: 75 y.o F with acute right great toe pain. R/o fracture COMPARISON: None available. TECHNIQUE: AP, lateral, and oblique views of the right foot. FINDINGS: There is osteopenia. There is a moderate-sized teardrop shaped ossification extending proximal and lateral from the medial lateral base of the first proximal phalanx There is moderate medial subluxation of the proximal phalanx of the first MTP joint. Small marginal osteophytes are present involving the first tarsometatarsal joint, navicular cuneiform joint, talonavicular joint, and calcaneocuboid joint There is a moderate size plantar calcaneal spur. There is a large posterior tibial plafond calcaneal spur extending over a posterior process of talus. No fracture is evident. XR/XR foot RT min 3V IMPRESSION: There is moderate medial subluxation of the proximal phalanx at the first MTP joint that could indicate an underlying joint capsular complex injury. There is a moderate-sized ossification along the lateral plantar base of the first proximal phalanx that is likely either an accessory ossification center or developmental. Moderate degenerative changes are consistent with osteoarthritis. Moderate sized plantar calcaneal spur. Electronically signed by: Daniel Lyons MD 07/12/2025 12:36 PM EDT Dictated By: Daniel Lyons MD Signed By: <Electronically signed by Daniel Lyons MD in OV> 07/12/25 1236 DD/ 1225 TD/TT: 07/12/25 1226 Animal Physiologist: Procedure Note Donotuseinterpreter, Image - 07/12/[address] [address] XRay Report Signed Patient: Kalli Peoples LMR#: [id number] : 9Acct:[id number] Age/Sex: 75 / FADM Date: 07/12/25 [facility]: [facility] Attending Dr: Mirella TRINH Ordering Physician: Mirella Sarkar Date of Service: 07/12/25 Procedure(s): XR foot RT min 3V Accession Number(s): [id number] cc: [facility] GARBAGE TRUCK HELPER Reason for Exam: 75 y.o F with acute right great toe pain. R/o fracture EXAMINATION: XR FOOT, RIGHT CLINICAL INFORMATION: 75 y.o F with acute right great toe pain. R/o fracture COMPARISON: None available. TECHNIQUE: AP, lateral, and oblique views of the right foot. FINDINGS: There is osteopenia. There is a moderate-sized teardrop shaped ossification extending proximal and lateral from the medial lateral base of the first proximal phalanx There is moderate medial subluxation of the proximal phalanx of the first MTP joint. Small marginal osteophytes are present involving the first tarsometatarsal joint, navicular cuneiform joint, talonavicular joint, and calcaneocuboid joint There is a moderate size plantar calcaneal spur. There is a large posterior tibial plafond calcaneal spur extending over a posterior process of talus. No fracture is evident. XR/XR foot RT min 3V IMPRESSION: There is moderate medial subluxation of the proximal phalanx at the first MTP joint that could indicate an underlying joint capsular complex injury. There is a moderate-sized ossification along the lateral plantar base of the first proximal phalanx that is likely either an accessory ossification center or developmental. Moderate degenerative changes are consistent with osteoarthritis. Moderate sized plantar calcaneal spur. Electronically signed by: Daniel Lyons MD 07/12/2025 12:36 PM EDT Dictated By: Daniel Lyons MD Signed By: <Electronically signed by Daniel Lyons MD in OV> 07/12/25 1236 DD/ 1225 TD/TT: 07/12/25 1226 Animal Physiologist: [facility] GARBAGE TRUCK HELPER IMG XR PROCEDURES Edited Resu lt - Final * Ferritin (07/12/2025 10:07 AM EDT) Ferritin 40 10 - 250 ng/mL [facility] Blood Venous blood specimen / Unknown 07/12/2025 10:07 AM EDT 07/12/2025 11:14 AM EDT [facility] GARBAGE TRUCK HELPER LAB BLOOD ORDERABLES Final Re sult Performing Organization Address [facility] Co de Phone Number [facility] [address] [place] [address] [phone] * (ABNORMAL) Iron And Total Iron Binding Capacity (07/12/2025 10:07 AM EDT) [facility] Iron 67 30 - 160 mcg/dL [facility] Total Iron Binding Capacity 210(L) 228 - 428 mcg/dL [facility] Percent Iron Saturation 32 15 - 50 % [facility] Unsaturated Iron Binding 143 ug/dL [facility] Blood Venous blood specimen / Unknown 07/12/2025 10:07 AM EDT 07/12/2025 11:14 AM EDT [facility] GARBAGE TRUCK HELPER LAB BLOOD ORDERABLES Final Re sult Performing Organization Address [facility] Co de Phone Number [facility] [address] [place] [address] [phone] * (ABNORMAL) CBC auto differential (07/12/2025 10:07 AM EDT) [facility] White Blood Count 5.2 4.8 - 10.8 X10*3/uL [facility] Red Blood Count 3.09(L) 4.20 - 5.50 X10*6/uL [facility] Hemoglobin 9.9(L) 12.0 - 16.0 g/dl [facility] Hematocrit 29.0(L) 37.0 - 47.0 % [facility] Mean Corpuscular Volume 93.9 80.0 - 98.0 fL [facility] Mean Corpuscular Hemoglobin 32.0 27.0 - 33.0 pg [facility] Mean Corpuscular HGB Conc 34.1 31.0 - 35.0 g/dl [facility] Red Cell Distribution Width 12.6 11.0 - 16.0 % [facility] Platelet Count 190 160 - 400 X10*3/uL [facility] Mean Platelet Volume 10.9 9.4 - 12.3 fL [facility] Neutrophils Percent Auto 33.2(L) 45 - 73 % [facility] Imm Gran Pct Auto 0.0 0.0 - 0.4 % [facility] Lymphocytes Percent Auto 48.9(H) 20 - 40 % [facility] Monocytes Percent Auto 9.2 2 - 11 % [facility] Eosinophils Percent Auto 7.5(H) 0 - 4 % [facility] Basophils Percent Auto 1.2 0 - 2 % [facility] NRBC Pct Auto 0.0 0.0 - 0.2 /100WBC [facility] Neutrophils Absolute Auto 1.7(L) 2.0 - 8.3 x10*3/uL [facility] Imm Gran Abs Auto 0.00 0.00 - 0.03 X10*3/uL [facility] Lymphocytes Absolute Auto 2.6 1.2 - 4.9 X10*3/uL [facility] Monocytes Absolute Auto 0.5 0.1 - 1.2 X10*3/uL [facility] Eosinophils Absolute Auto 0.4 0.0 - 0.4 X10*3/uL [facility] Basophils Absolute Auto 0.1 0.0 - 0.2 X10*3/uL [facility] NRBC Abs Auto 0.000 0.0 - 0.012 X10*3/uL [facility] Blood Venous blood specimen / Unknown 07/12/2025 10:07 AM EDT 07/12/2025 11:20 AM EDT [facility] GARBAGE TRUCK HELPER LAB BLOOD ORDERABLES Final Re sult [facility] [address] [place] [address] [phone] documented in this encounter Visit Diagnoses Diagnosis Normocytic anemia- Primary Unspecified anemia Great toe pain, right documented in this encounter Additional Health Concerns Assessment Noted Time PHQ-9 Depression Total Score: 0 07/11/20 11:28 AM EDT documented as of this encounter Care Teams Gallery Or Museum Curator Relationship Specialty Start Date End Date Mirella Sarkar FNP [address] [place] [phone] PCP - General Family Medicine 06/20/22 documented as of this encounter
--- NOTE | ~2025-07-12 | XR_ITS ---
EXAMINATION: XR FOOT, RIGHT CLINICAL INFORMATION: 75 y.o F with acute right great toe pain. R/o fracture COMPARISON: None available. TECHNIQUE: AP, lateral, and oblique views of the right foot. FINDINGS: There is osteopenia. There is a moderate-sized teardrop shaped ossification extending proximal and lateral from the medial lateral base of the first proximal phalanx There is moderate medial subluxation of the proximal phalanx of the first MTP joint. Small marginal osteophytes are present involving the first tarsometatarsal joint, navicular cuneiform joint, talonavicular joint, and calcaneocuboid joint There is a moderate size plantar calcaneal spur. There is a large posterior tibial plafond calcaneal spur extending over a posterior process of talus. No fracture is evident. XR/XR foot RT min 3V IMPRESSION: There is moderate medial subluxation of the proximal phalanx at the first MTP joint that could indicate an underlying joint capsular complex injury. There is a moderate-sized ossification along the lateral plantar base of the first proximal phalanx that is likely either an accessory ossification center or developmental. Moderate degenerative changes are consistent with osteoarthritis. Moderate sized plantar calcaneal spur. Electronically signed by: Daniel Lyons MD 07/12/2025 12:36 PM EDT
[2025-07-12 11:24] LABS: MANUAL DIFF FLAG NO
[2025-07-12 11:37] LABS: Hematocrit 29.0 % (37.0-47.0); Hemoglobin 9.9 g/dl (12.0-16.0); Imm Gran Abs Auto 0.00 X10*3/uL (0.00-0.03); Imm Gran Pct Auto 0.0 % (0.0-0.4); Lymphocytes Absolute Auto 2.6 X10*3/uL (1.2-4.9); Mean Corpuscular HGB Conc 34.1 g/dl (31.0-35.0); Mean Corpuscular Hemoglobin 32.0 pg (27.0-33.0); Mean Corpuscular Volume 93.9 fL (80.0-98.0); NRBC Abs Auto 0.000 X10*3/uL (0.0-0.012); NRBC Pct Auto 0.0 /100WBC (0.0-0.2); Platelet Count 190 X10*3/uL (160-400); Red Blood Count 3.09 X10*6/uL (4.20-5.50); White Blood Count 5.2 X10*3/uL (4.8-10.8)
[2025-07-12 12:35] LABS: Iron 67 mcg/dL (30-160); Percent Iron Saturation 32 % (15-50); Total Iron Binding Capacity 210 mcg/dL (228-428); Unsaturated Iron Binding 143 ug/dL
[2025-07-12 12:40] LABS: Ferritin 40 ng/mL (10-250)
--- OUTSIDE RECORDS SUMMARY | 2025-07-12 13:09 | XMS_ITS | Encounter Summary ---
Author Organization [employer] Address [address] [facility] 7t [place] [address] Care Team Providers Care Rheumatologist Name Role Phone Mello Lonepine WINTER SPORTS MANAGER Primary Care Provider [phone] Encounter Details Date Type Department Care Team (Late st Contact Info) Description 10/17/2023 Orders Only [facility] [address] [place] [address] Abby Vale LPN Social History Tobacco Use [...] documented as of this encounter Care Teams Rheumatologist Relationship Specialty Start Date End Date Mirella Sarkar FNP [address] [place] [address] PCP - General Family Medicine 06/20/22 documented as of this encounter
--- OUTSIDE RECORDS SUMMARY | 2025-07-12 13:09 | XMS_ITS | Encounter Summary ---
Author Organization [employer] Address [address] [facility] [address] [place] [address] Care Team Providers Care Deputy Fire Marshal Name Role Phone Mello Mirella DOUGH RAISER Primary Care Provider [phone] Encounter Details Date Type Department Care Team (Late st Contact Info) Description 02/04/2024 Orders Only [facility] MEDICINE [address] [place], [place] [phone] Provider, MD Frida Social History Tobacco Use [...] documented as of this encounter Care Teams Deputy Fire Marshal Relationship Specialty Start Date End Date Mirella Sarkar FNP [address] [place] [phone] PCP - General Family Medicine 06/20/22 documented as of this encounter
--- OUTSIDE RECORDS SUMMARY | 2025-07-12 13:10 | XMS_ITS | Encounter Summary ---
Author Organization [employer] Address [address] [facility] 7t [place] [address] Care Team Providers Care Crown Perforator Operator Name Role Phone Mello Mirella SAILING INSTRUCTOR Primary Care Provider [phone] Encounter Details Date Type Department Care Team (Late st Contact Info) Description 10/30/2022 Orders Only [facility] [address] [place] [address] Abby Vale LPN Social History Tobacco Use [...] AM EST Narrative 11/07/2022 4:12 PM EST [facility] [address] [place] [address] Mammography Report Signed Patient: Kalli Peoples MR#: [id number] : 1950 Acct:[id number] Age/Sex: 72 / F ADM Date: 11/06/22 Loc: MAMMO Attending Dr: Bridgett Braun Ordering Physician: Bridgett Braun Results: 2Benign F indings Date of Service: 11/06/22 Follow Up: 1 Year From Orig ina Mammogram Procedure(s): MM tomosynthesis screening BI Accession Number(s): [id number] cc: Bridgett Braun EXAMINATION: MM SCREENING DIGITAL [...] in OV> 11/07/22 1609 DD/ 1030 TD/TT: Commodity Supervisor: REEVES Procedure Note Donotuseinterpreter, Image - 11/07/2022 [facility] [address] [place], [place] [address] Mammography Report Signed Patient: Kalli Peoples LMR#: [id number] : 9Acct:[id number] Age/Sex: 72 / FADM Date: 11/06/22 Loc: MAMMO Attending Dr: Bridgett Braun Ordering Physician: Bridgett BraunResults: 2Benign F indings Date of Service: 11/06/22Follow Up: 1 Year From Orig inal Mammogram Procedure(s): MM tomosynthesis screening BI Accession Number(s): [id number] cc: Bridgett Braun EXAMINATION: MM SCREENING DIGITAL [...] in OV> 11/07/22 1609 DD/ 1030 TD/TT: Commodity Supervisor: REEVES [facility] External Provider IMG BI PROCEDURES Final Result documented in this encounter Visit Diagnoses Not on filedocumented in this encounter Care Teams Crown Perforator Operator Relationship Specialty Start Date End Date Mirella Sarkar FNP [address] [place] [phone] PCP - General Family Medicine 06/20/22 documented as of this encounter
--- OUTSIDE RECORDS SUMMARY | 2025-07-12 13:10 | XMS_ITS | Encounter Summary ---
Author Organization [employer] Address [address] [facility] [address]t [place] [address] Care Team Providers Care Date Night Sitter Name Role Phone [facility] Primary Care Provider [phone] Reason for Visit * Reason Comments Med Refill Encounter Details Date Type Department Care Team ([facility] st Contact Info) Description 07/10/2025 Refill [facility] [address] [place], [place] [phone] [facility] [address] [place], [place] [phone] Social History Tobacco Use Types Packs/Day Years [...] AM EDT documented as of this encounter Functional Status * Over the [...] AM EDT Charlene Thornton MA * Feeling tired or having little energy Answer Date of Assessment Author Not at all 07/11/2025 11:28 AM EDT Charlene Thornton MA * Poor appetite or overeating Answer Date of Assessment Author Not at all 07/11/2025 11:28 AM EDT Charlene Thornton MA * Feeling bad about yourself - or that you are a failure or have let yourself or your family down Answer Date of Assessment Author Not at all 07/11/2025 11:28 AM EDT Charlene Thornton MA * Trouble concentrating on things, such as reading the newspaper or watching television Answer Date of Assessment Author Not at all 07/11/2025 11:28 AM EDT Charlene Thornton MA * Moving or speaking so slowly that other people could have noticed? Or the opposite - being so fidgety or restless that you have been moving around a lot more than usual. Answer Date of Assessment Author Not at all 07/11/2025 11:28 AM EDT Charlene Thornton MA * Thoughts that you would be better off or hurting yourself in some way Answer Date of Assessment Author Not at all 07/11/2025 11:28 AM EDT Charlene Thornton MA * Patient Health Questionnaire-9 Score Answer Date of Assessment Author 0 07/11/2025 11:28 AM EDT Charlene Thornton MA * Over the last 2 weeks, how often have you been bothered by any of the following problems? Question Answer Date of Assessment Author Feeling nervous, anxious, or on edge 1 07/11/2025 11:29 AM EDT Charlene Harman MA Not being able to stop or control worrying 0 07/11/2025 11:29 AM EDT Charlene Harman MA Worrying too much about different things 0 07/11/2025 11:29 AM EDT Charlene Harman MA Trouble relaxing 0 07/11/2025 11:29 AM EDT Charlene Harman MA Being so restless that it is hard to sit still 0 07/11/2025 11:29 AM EDT Charlene Harman MA Becoming easily annoyed or irritable 0 07/11/2025 11:29 AM EDENILSONT Charlene Harman MA documented as of this encounter Plan of Treatment Not on file documented as of this encounter Visit Diagnoses Not on filedocumented in this encounter Additional Health Concerns Assessment Noted Time PHQ-9 Depression Total Score: 0 01/08/20 25 9:22 AM EDT documented as of this encounter Care Teams Date Night Sitter Relationship Specialty Start Date End Date Mirella Sarkar FNP [address] [place] [address] PCP - General Family Medicine 06/20/22 documented as of this encounter
--- OUTSIDE RECORDS SUMMARY | 2025-07-12 13:10 | XMS_ITS | Clinical Summary ---
Author Organization [employer] Address [address] [place] [address] 7[address] [place] [address] Care Team Providers Care Gang Miner Name Role Phone [facility] Primary Care Provider [phone] Allergies No known active allergies Medications albuterol 108 (90 Base) MCG/ACT inhalerIndication s:Shortness of breath INHALE 2 PUFFS BY MOUTH FOUR TIMES DAILY NEEDED FOR WHEEZING 8.5 g 1 023 Active Respiratory Therapy Supplies (Nebulizer Mask Adult) miscIndications:M oderate persistent asthma without complication 1 each every 4 (four) hours if needed (sob/wheezing) . 1 each 023 Active Ferrous Sulfate (iron) 325 (65 Fe) MG tablet TAKE 1 TABLET BY MOUTH ONCE DAILY WITH ORANGE JUICE 90 tablet 3 024 Active rosuvastatin (Crestor) 20 MG tabletIndications :Other hyperlipidemia TAKE 1 Tablet BY MOUTH EVERY DAY FOR CHOLESTEROL 90 tablet 3 025 Active naproxen (Naprosyn) 375 MG tablet TAKE 1 TABLET BY MOUTH TWICE DAILY WITH FOOD NEEDED 60 tablet 025 Active lisinopril-hydroC HLOROthiazide 20-25 MG tabletIndications :Essential hypertension TAKE 1 TABLET BY MOUTH EVERY DAY 90 tablet 1 025 Active loratadine (Claritin) 10 MG tabletIndications :Seasonal allergies TAKE 1 TABLET BY MOUTH EVERY DAY 90 tablet 1 025 Active amLODIPine (Norvasc) 5 MG tablet TAKE 1 TABLET BY MOUTH EVERY MORNING 90 tablet 1 025 Active Fluticasone-Salme terol 250-50 MCG/ACT aerosol powder INHALE 1 PUFF BY MOUTH TWICE DAILY RINSE MOUTH AFTER USING. 60 each 1 025 Active docusate sodium (Colace) 100 MG capsuleIndication s:Constipation, unspecified constipation type Take 1 capsule (100 mg) by mouth in the morning. 90 capsule 3 025 Active polyethylene glycol, PEG, 3350 (Glycolax) 17 GM/SCOOP powderIndications :Constipation, unspecified constipation type Mix 17g (1 capful) in 8 ounces of water and take by mouth every day 510 g 2 025 Active ergocalciferol (Vitamin D-2) 1.25 MG (22805 UT) capsule 1 capsule by mouth once a month 4 capsule 11 025 Active Calcium Carb-Cholecalcife rol 600-10 MG-MCG tablet TAKE 1 TABLET BY MOUTH TWICE DAILY 180 tablet 1 025 Active Diclofenac Sodium 1 % gelIndications:Gr eat toe pain, right Apply topically to affected areas twice daily 150 g 1 025 Active Calcium Carb-Cholecalcife rol 600-10 MG-MCG tablet Take 1 tablet by mouth 2 times daily. 180 tablet 1 025 2024 Discontinued Active Problems Problem [...] idiopathic skeletal hyperostosis Osteopenia 09/08/2015 Overview (05/09/2023): Takes calcium and Vitamin D supplementation Assessment [...] Assessment & Plan (05/09/2023 1:37 PM EDT): START amlodipine 5mg daily Continue lisinopril/hctz Complete previously ordered labs RN BP check 2 weeks H/O: hysterectomy [...] Encounters Date Type Department Care Team Description 07/11/2025 10:30 AM EDT Office Visit [facility] [address] [place] [phone] Mirella Sarkar FNP Normocytic anemia (Primary Dx); Great toe pain, right 07/11/2025 Travel 07/10/[address] [facility] [address] [place] [address] Mirella Sarkar FNP 07/08/[address] [facility] [address] [place] [address] Mirella Sarkar FNP Chart Prep 07/01/2025 Patient Outreach [facility] [address] [place] [address] Mirella Sarkar FNP Pre-visit Planning (SDPR screening completed on 01/07/2025) 05/30/2025 Refill [facility] [address] [place] [address] Chelsea Aldana MD 05/26/[address] [facility] [address] [place], [place] [phone] Mirella Sarkar FNP Constipation, unspecified constipation type 05/11/[address] [facility] [address] [place] [address] Mirella Sarkar FNP Constipation, unspecified constipation type 04/13/[address] [facility] [address] [place] [address] [facility], [facility] FYI from Last 3 Months Immunizations Immunization Administration Dates Next Due Influenza High-dose Quadriva [...] the past 12 months, has t he [employer], gas, oil or water company threatened to [...] 18 07/11/2025 10:58 AM EDT Oxygen Saturation 96% 12/29/2023 10:41 AM EST Inhaled Oxygen Concentration - - Weight 61 kg (134 lb 6.4 oz) 07/11/2025 10:58 AM EDT Height 139.7 cm (4' 7 ) 07/11/2025 10:58 AM EDT Body Mass Index 31.24 07/11/2025 10:58 AM EDT Plan of Treatment Health Maintenance Due Date Last Done Comments Hepatitis C Screening 1968 RSV Patients and Patients Aged 60 years or older (1 - 1-dose 75+ series) 2024 COVID-19 Vaccine ( season) 2025 09/27/2024, 09/10/2023, 01/30/2023, Additional history exists Influenza Vaccine (#1) 2025 4, 09/05/2023, 09/05/2021, Additional history exists Alcohol/Substance Use Screening 01/07/2026 01/07/2025 SDOH Screening 01/07/2026 01/07/2025 Depression Screening 07/11/2026 07/11/2025, 07/11/20 25 Tobacco Screening 07/11/2026 07/11/2025 Lipid Panel 01/10/2030 01/10/2025, 03/27, 09/10/2023, Additional history exists DTaP/Tdap/Td Vaccines (3 - Td or Tdap) 04/04/2032 04/04/2022, 03/24/2012, 07/08/2008, Additional history exists Pneumococcal Vaccine: 50+ Years Completed 05/07/2017, 09/08/2015, 03/24/2012 Zoster Vaccines Completed 05/18/2020, 12/25, 09/08/2015 FIT Discontinued 05/01/2023 FOBT Discontinued 05/01/2023 Colonoscopy Discontinued 08/05/2024, 07/06/2019 Colorectal Cancer Screening Discontinued CT Colonography Discontinued FIT DNA/Cologuard Discontinued HIB Vaccines Aged Out No longer eligi [...] patient's age to complete this topic Meningococcal B Vaccine Aged Out No l onger eligible based on patient's age to complete this topic Meningococcal Vaccine Aged Out No jose antonio johnathan eligible based on patient's age to complete this topic RSV under 20 months Aged Out No longe r eligible based on patient's age to complete this topic Rotavirus Vaccines Aged Out No longer eligible based on patient's age to complete this topic Sigmoidoscopy Discontinued Procedures Procedure Name Priority Date/Time Associated Diagnosis Comments XR FOOT 3+ VIEWS RIGHT Routine 12:25 PM EDT Great toe pain, right FERRITIN Routine 07/12/2025 10:07 AM EDT Normocytic anemia IRON AND TOTAL IRON BINDING CAPACITY Routine 07/12/2025 10:07 AM EDT Normocytic anemia CBC WITH AUTO DIFFERENTIAL Routine 07/12/2025 10:07 AM EDT Normocytic anemia LIPID PANEL, STANDARD Routine 01/10/2025 9:20 AM EDT Osteopenia, unspecified location HM COLONOSCOPY Routine 08/05/2024 FECAL GLOBIN BY IMMUNOCHEMISTRY Routine 05/01/2023 3:09 PM EDT from Last 3 Months or Most Recently Relevant to Health Maintenance Results * XR Foot 3+ Views Right (07/12/2025 12:25 PM EDT) Anatomical Region Laterality Modality Lower Extremities, Foot Right Radiogra phic Imaging 07/12/2025 12:2 5 PM EDT Narrative 07/12/2025 12:39 PM EDT [place] [id number] XRay Report Signed Patient: Kalli Peoples MR#: [id number] : 1950 Acct:[id number] Age/Sex: 75 / F ADM Date: 07/12/25 Loc: [facility] Attending Dr: Mirella TRINH Ordering Physician: Mirella Sarkar Date of Service: 07/12/25 Procedure(s): XR foot RT min 3V Accession Number(s): [id number] cc: Mirella Sarkar Reason for Exam: 75 [...] Daniel Lyons MD 07/12/2025 12:36 PM EDT RP Dictated By: Daniel Lyons MD Signed By: <Electronically signed by Daniel Lyons MD in OV> 07/12/25 1236 DD/ 1225 TD/TT: 07/12/25 1226 Product Control And Logistics Analyst: Procedure Note Donotuseinterpreter, Image - 07/12/2025 [place] [id number] XRay Report Signed Patient: Kalli Peoples LMR#: [id number] : 9Acct:[id number] Age/Sex: 75 / FADM Date: 07/12/25 Loc: [facility] Attending Dr: Mirella TRINH Ordering Physician: Mirella Sarkar Date of Service: 07/12/25 Procedure(s): XR foot RT min 3V Accession Number(s): [id number] cc: Mirella Sarkar Reason for Exam: 75 [...] 07/12/25 1236 DD/ 1225 TD/TT: 07/12/25 1226 Product Control And Logistics Analyst: [facility] TABLEAU ARCHITECT IMG XR PROCEDURES Edited Resu lt - Final * (ABNORMAL) CBC auto differential (07/12/2025 10:07 AM EDT) White Blood Count 5.2 4.8 - 10.8 X10*3/uL [facility] Red Blood Count 3.09(L) 4.20 - 5.50 X10*6/uL [facility] Hemoglobin 9.9(L) 12.0 - 16.0 g/dl [facility] Hematocrit 29.0(L) 37.0 - 47.0 % [facility] Mean Corpuscular Volume 93.9 80.0 - 98.0 fL [facility] Mean Corpuscular Hemoglobin 32.0 27.0 - 33.0 pg [facility] Mean Corpuscular HGB Conc 34.1 31.0 - 35.0 g/dl [facility] Red Cell Distribution Width 12.6 11.0 - 16.0 % [facility] Platelet Count 190 160 - 400 X10*3/uL [facility] Mean Platelet Volume 10.9 9.4 - 12.3 fL [facility] Neutrophils Percent Auto 33.2(L) 45 - 73 % [facility] Imm Gran Pct Auto 0.0 0.0 - 0.4 % [facility] Lymphocytes Percent Auto 48.9(H) 20 - 40 % [facility] Monocytes Percent Auto 9.2 2 - 11 % [facility] Eosinophils Percent Auto 7.5(H) 0 - 4 % [facility] Basophils Percent Auto 1.2 0 - 2 % [facility] NRBC Pct Auto 0.0 0.0 - 0.2 /100WBC [facility] Neutrophils Absolute Auto 1.7(L) 2.0 - 8.3 x10*3/uL [facility] Imm Gran Abs Auto 0.00 0.00 - 0.03 X10*3/uL [facility] Lymphocytes Absolute Auto 2.6 1.2 - 4.9 X10*3/uL [facility] Monocytes Absolute Auto 0.5 0.1 - 1.2 X10*3/uL [facility] Eosinophils Absolute Auto 0.4 0.0 - 0.4 X10*3/uL [facility] Basophils Absolute Auto 0.1 0.0 - 0.2 X10*3/uL [facility] NRBC Abs Auto 0.000 0.0 - 0.012 X10*3/uL [facility] Blood Venous blood specimen / Unknown 07/12/2025 10:07 AM EDT 07/12/2025 11:20 AM EDT [facility] TABLEAU ARCHITECT LAB BLOOD ORDERABLES Final Re sult [facility] [address] [place] [phone] * (ABNORMAL) Iron And Total Iron Binding Capacity (07/12/2025 10:07 AM EDT) Iron 67 30 - 160 mcg/dL [facility] Total Iron Binding Capacity 210(L) 228 - 428 mcg/dL [facility] Percent Iron Saturation 32 15 - 50 % [facility] Unsaturated Iron Binding 143 ug/dL [facility] Blood Venous blood specimen / Unknown 07/12/2025 10:07 AM EDT 07/12/2025 11:14 AM EDT [facility] LAB BLOOD ORDERABLES Final Re sult Performing Organization Address [facility]/ZIP Co de Phone Number [facility] [address] [place] [phone] * Ferritin (07/12/2025 10:07 AM EDT) Pathologist [facility] Ferritin 40 10 - 250 ng/mL [facility] Blood Venous blood specimen / Unknown 07/12/2025 10:07 AM EDT 07/12/2025 11:14 AM EDT [facility] LAB BLOOD ORDERABLES Final Re sult Performing Organization Address City/[facility]/ZIP Co de Phone Number [facility] [address] [place] [phone] * Lipid Panel, Standard (01/10/2025 9:20 AM EDT) Pathologist [facility] Triglycerides 79 <150 mg/dL [facility] Comment:Desirable Triglyceri de: less than 150 mg/dLBorderline High Triglyceride 150-199 mg/dLHigh Triglyceride: 200-499 mg/dLVery High Triglyceride: greater than or equal to 5OO mg/dL Cholesterol 112 <200 mg/dL [facility] Comment:Desirable Cholestero l: less than 200 mg/dLBorderline High Cholesterol: 200-239 mg/dLHigh Cholesterol: greater than 239 mg/dL LDL Cholesterol Calculated 41 <100 mg/dL [facility] Comment:Desirable LDL: less than 100 mg/dLNear Optimal/Above Optimal LDL: 110- 129 mg/dLBorderline High LDL: 130-159 mg/dLHigh LDL: 160-189 mg/dLVery High LDL: greater than or equal to 190 mg/dL HDL Cholesterol 56 >40 mg/dL [facility] Comment:Desirable HDL: great er than 40 mg/dL Note: This HDL assay may give artificially low results in patients with liver disease. Blood Venous blood specimen / Unknown 01/10/2025 9:20 AM EDT 01/10/2025 11:18 AM EDT [facility] LAB BLOOD ORDERABLES Final Re sult Performing Organization Address [facility] Phone Number [facility] [address] [place] [phone] * (ABNORMAL) Hm Colonoscopy (08/05/2024) Colonoscopy Abnormal( A) Normal Comment:repeat 5 years [facility] Provider HEALTH MAINTENANCE Final Result * Fecal Globin by Immunochemistry (05/01/2023 3:09 PM EDT) Fecal Globin By Immunochemistry SEE NOTE [facility] Comment: FECAL GLOBIN BY IMMUNOCHEMISTRY Micro Number: [id number] Test Status: Final Specimen Source: Insure () fobt test card Specimen Quality: Adequate Fecal Globin: Not Detected NO COLLECTION DATE RECEIVED. WE HAVE USED THE DATE THE SPECIMEN WAS RECEIVED BY THIS LABORATORY THE COLLECTION DATE. IF THIS IS INCORRECT, PLEASE CONTACT CLIENT SERVICES. PHONE NUMBER: 04/28/2023 1:5 7 PM EDT Narrative [facility] - 05/01/2023 3:09 PM EDT COLLECTION REQUIREMENTS NOT MET. PATIENT ADVISED TO RETURN. [facility] LAB BODY FLUIDS AND STOOLS OR DERABLES Final Result [facility] [address] [facility], [place] [address] [facility] [address] [place] [phone] from Last 3 Months or Most Recently Relevant to Health Maintenance Insurance [facility] [employer] JAIL OPTIONS (O D-SNP) * Guarantor: Kalli Peoples Account Type Relation to Patient Date of Phone Billing Address Personal/Family Self [address] [facility] [place] Care Teams Gang Miner Relationship Specialty Start Date End Date Mirella Sarkar FNP [address] [place] [address] PCP - General Family Medicine 06/20/22
--- OUTSIDE RECORDS SUMMARY | 2025-07-12 13:10 | XMS_ITS | Encounter Summary ---
Author Organization [employer] Address [address] [facility] [address]t [place] [address] Care Team Providers Care Compensation Director Name Role Phone [facility] Primary Care Provider [phone] Reason for Visit * Reason Onset Date Comments Chart Prep 07/08/2025 Encounter Details Date Type Department Care Team (Late st Contact Info) Description 07/08/2025 Telephone [facility] [address] [place], [place] [phone] [employer] [address] [place] [address] Chart Prep Social History Tobacco Use Types Packs/Day Years [...] encounter Miscellaneous Notes * Telephone Encounter - Shara Alfredo [place] - 07/08/2025 3:00 PM EDT Chart Prep Labs: done Images: not applicable Referrals: not applicable Vaccines due: Covid, Flu, and RSV Screenings: not applicable Overdue care gaps: PHQ-9 and JUAN-7 documented in this encounter Plan of Treatment Not on file documented as of this encounter Visit Diagnoses Not on filedocumented in this encounter Additional Health Concerns Assessment Noted Time PHQ-9 Depression Total Score: 0 01/08/20 25 9:22 AM EDT documented as of this encounter Care Teams Compensation Director Relationship Specialty Start Date End Date Mirella Sarkar FNP [address] [place] [phone] PCP - General Family Medicine 06/20/22 documented as of this encounter
--- OUTSIDE RECORDS SUMMARY | 2025-07-12 13:10 | XMS_ITS | Encounter Summary ---
Author Organization [employer] Address [address] [facility] [address] [place] [address] Care Team Providers Care Admissions Nurse Name Role Phone Mello Mirella DEVULCANIZER OPERATOR Primary Care Provider [phone] Encounter Details Date Type Department Care Team (Latest Contact Info) Description 07/11/2025 Travel Social History Tobacco Use Types Packs/Day [...] documented as of this encounter Care Teams Admissions Nurse Relationship Specialty Start Date End Date Mirella Sarkar FNP [address] [place] [phone] PCP - General Family Medicine 06/20/22 documented as of this encounter
--- OUTSIDE RECORDS SUMMARY | 2025-07-12 13:10 | XMS_ITS | Encounter Summary ---
Author Organization [employer] Address [address] [facility] [address] [place] [address] Care Team Providers Care Manager Restaurant Name Role Phone Mirella Sarkar CANDY MAKER HELPER Primary Care Provider [phone] Encounter Details Date Type Department Care Team (Late st Contact Info) Description 11/25/2022 Orders Only [facility] [address] [place], [place] [phone] Abby Vale LPN Social History Tobacco Use [...] on filedocumented in this encounter Care Teams Manager Restaurant Relationship Specialty Start Date End Date Mirella Sarkar FNP [address] [place] [phone] PCP - General Family Medicine 06/20/22 documented as of this encounter
== END 2025-07-12 10:04 | disposition home or self-care (01) ==
LOC: HO.HHCL 10:03
PROVIDERS: PCP Registered Nurse; Visit Provider Registered Nurse
DX: M79.674 Pain in right toe(s) (principal); D64.9 Anemia, unspecified
CPT/HCPCS: 36415; 73630; 82728; 83540; 85025

== ENCOUNTER → 2025-07-12 10:15 | Outpatient (BNV) | payer OTHER, SELFPAY | PROVIDERS: PCP Registered Nurse; Visit Provider Radiology Diagnostic Radiology | DX: S93.141A Subluxation of metatarsophalangeal joint of right great toe, initial encounter (principal); M61.571 Other ossification of muscle, right ankle and foot; M77.31 Calcaneal spur, right foot | CPT/HCPCS: 73630 ==